=== PATIENT | female | born 1995 | race Caucasian/White ===

== ENCOUNTER 2018-05-20 14:27 | Emergency (ER) | payer BC, SELFPAY ==
[2018-05-20 14:30] VITALS: BP 113/78; PULSE 93; RESP 14; TEMP 36.6; O2SAT 99
--- NOTE | 2018-05-20 14:39 | ED.GENADUL_ITS ---
Discharge Plan Disposition Patient Disposition: HOME Condition: Improving Discharge Details Chief Complaint: EarProblem Clinical Impression: Acute left otitis media Primary Care Provider: None,None ED Provider: Brent Dalal Home Meds and New Rx's Prescriptions: New amoxicillin-pot clavulanate 875-125 mg tablet 1 tab PO BID 10 Days Qty: 20 RF: 0 Continued ibuprofen 800 mg Tablet 800 mg PO TID PRNRF: 0 Discharge Instructions Instructions: Otitis Media (ED) Additional Instructions: We will ask our care management team to assist you in establishing a new primary care physician. May use Benadryl 25-50 mg at bedtime to help decongest her left ear. Take antibiotics as prescribed. I recommend you take a probiotic or live culture yogurt once during the middle of the day when on the antibiotics. May use [id number] Sudafed times 3 days for decongestion. May continue Tylenol and/or ibuprofen if needed for pain Return for any acute concern Stand Alone Forms: Work Release Medical Decision Making 22-year-old female presents from home with left ear pain times 2 days. It is distended and erythematous and she likely has a developing acute left otitis media. Discussed with her home management including a course of antibiotics. She stable for discharge to home. HPI General Mode of arrival: ambulatory . Date/Time Provider Initiated Documentation: 05/20/18 14:29 . Limitations to Documentation: no limitations . Information obtained by: patient . History of Present Illness described as moderate, Quality is described as aching, and is localized to the head, face and left. Patient reports no radiation. Patient started experiencing this day(s) No relieving factors improve symptom(s), No exacerbating factors reported . Patient did receive the following treatments prior to arrival, NSAID Related Data Home Medications Medication Instructions Recorded Confirmed amoxicillin-pot clavulanate 1 tab PO BID 10 Days #20 tab 05/20/18 ibuprofen 800 mg PO TID PRN 05/20/18 05/20/18 Previous Rx's Medication Instructions Recorded amoxicillin-pot clavulanate 1 tab PO BID 10 Days #20 tab 05/20/18 Allergies Allergy/AdvReac Type Severity Reaction Status Date / Time banana Allergy Hives Unverified 05/20/18 14:33 General Stated Complaint: EarProblem RANDEE: 4 Review of Systems Review of Systems No vomiting. No headache. No fall or trauma. 6 systems reviewed and otherwise - [facility] Medical History Asthma BV (bacterial vaginosis) Depression Encounter for management and injection of injectable progestin contraceptive Genitourinary Chlamydia infection Recurrent acute otitis media Surgical History Dilation and curettage (06/19/13) Family History Mother Mental disorder Father Mental disorder Grandmother Mental disorder Social History Smoking/Tobacco Use Status: Current every day Tobacco Type: cigarettes Alcohol Intake: current Alcohol Intake frequency: holidays/special occasions only Drug use: Never Substance use type: does not use Do you feel safe in your relationship?: Yes Exam Narrative Exam Narrative: GEN: awake, alert, oriented 3. Pleasant, well groomed, interactive. HEAD: Normocephalic, atraumatic ENT: Mucous membranes moist, oropharynx unremarkable, External ear exam unremarkable. The left tympanic membrane is distended and erythematous EYES: PERRL, EOMI NECK: Full ROM, no LEYLA, no menigismus CHEST/RESP: Nontender, clear to auscultation bilateral, no wheeze/rhonchi/rales CARDIOVASCULAR: RRR, no murmur, rub prisca. 2+ Rad pulse bilateral Neuro: Grossly normal neurologic exam, conversant, interactive. Psych: Speech fluent, thoughts congruent, affect normal Course Vital Signs Temperature 36.6 C 05/20/18 14:30 Pulse 93 H 05/20/18 14:30 Respiratory Rate 14 05/20/18 14:30 Blood Pressure 113/78 05/20/18 14:30 Pulse Oximetry 99 05/20/18 14:30 Temperature 36.6 C 05/20/18 14:30 Temperature Source Skin 05/20/18 14:30 Pulse 93 H 05/20/18 14:30 Respiratory Rate 14 05/20/18 14:30 Blood Pressure 113/78 05/20/18 14:30 Blood Pressure Position Sitting 05/20/18 14:30 Pulse Oximetry 99 05/20/18 14:30 Oxygen Delivery Method Room Air 05/20/18 14:30 Oxygen Flow Rate 0 05/20/18 14:30 Pain Level 7 05/20/18 14:30
--- NOTE | 2018-05-21 09:40 | PDOC.ERCMPRO ---
Care Management Progress Note 05/21-Dr. Dalal requested assistance with establishing a PCP (Romaine [facility] production superintendent). Referral faxed to [facility] this am.
--- NOTE | 2018-05-21 09:41 | CMPROGNOTE_ITS ---
Care Management Progress Note 05/21-Dr. 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 Referral faxed to [facility] this am.
== END 2018-05-20 14:43 | disposition home or self-care (01) ==
PROVIDERS: Emergency Provider Emergency Medicine
DX: H66.92 Otitis media, unspecified, left ear (principal)
CPT/HCPCS: 99283

== ENCOUNTER 2018-08-13 11:20 | Outpatient (CLI) | payer BC, MEDICAID, SELFPAY | END 2018-08-13 11:40 | PROVIDERS: Visit Provider Obstetrics & Gynecology Gynecology | DX: Z32.01 Encounter for pregnancy test, result positive (principal) | CPT/HCPCS: 36415; 84702 ==

== ENCOUNTER 2018-08-14 16:17 | Outpatient (CLI) | payer BC, MEDICAID, SELFPAY ==
[2018-08-14 17:17] LABS: HCT 34.9 % (36.0-46.0); HGB 12.3 g/dL (12.0-15.5); Mean Corp. HGB Concentration 35.2 g/dL (32.0-36.0); Mean Corpuscular Hemoglobin 31.1 pg (27.0-33.0); Mean Corpuscular Volume 88.1 fL (80-95); Mean Platelet Volume 9.8 fL (8.0-11.0); Platelet Count 237 x1000/uL (130-400); RBC 3.96 m/cumm (4.00-5.20); RBC Distribution Width 12.3 % (11.7-14.6)
== END 2018-08-14 16:37 ==
PROVIDERS: Visit Provider Obstetrics & Gynecology Gynecology
DX: Z01.812 Encounter for preprocedural laboratory examination (principal); O02.1 Missed abortion
CPT/HCPCS: 36415; 85027; 86850; 86900; 86901

== ENCOUNTER 2018-08-15 10:44 | Day surgery (SDC) | payer BC, MEDICAID, SELFPAY ==
[2018-08-15 11:22] VITALS: BP 106/63; PULSE 88; RESP 16; TEMP 37; O2SAT 99
[2018-08-15] MEDS: Doxycycline Hyclate 100 MG CAP PO (11:39)
[2018-08-15] MEDS: Lactated Ringers 1,000 ML 125 ML IV (11:45)
[2018-08-15] MEDS: Bupivacaine 0.25% Pres-Free 30 ML VIAL (12:20)
--- NOTE | 2018-08-15 12:20 | POCSPONT_PTH ---
PATIENT: Eva Alves LOC: [facility] U#:[id number] AGE/SX: 23/F ROOM: RE08/15/[address]: Nena Tiwari : 1995 BED: DIS: 08/15/2018 SPEC #: [id number] RECD: 08/15/18 12:50 STATUS: CHARLES REQ #: [id number] CHRISTI: 08/15/18 12:[address]: Nena Tiwari DEPT: Surgical Specimen RECD BY: Tana Phillips ENTERED: 08/15/18 12:52 SP TYPE: JAEL BAY DR: None Tissues: 1 - ,SPONTANEOUS Procedures: GROSS AND MICRO LEVEL 4 Comments: [id number]
[2018-08-15 12:35] VITALS: BP 94/47; PULSE 81; RESP 15; TEMP 36.6; O2SAT 100
[2018-08-15 12:40] VITALS: BP 97/57; PULSE 82; RESP 14; TEMP 36.6; O2SAT 100
[2018-08-15 12:45] VITALS: BP 100/65; PULSE 82; RESP 14; TEMP 36.6; O2SAT 100
[2018-08-15 13:00] VITALS: BP 97/66; PULSE 95; RESP 17; TEMP 36.6; O2SAT 100
[2018-08-15 13:50] VITALS: BP 106/53; PULSE 72; RESP 16; TEMP 37.1; O2SAT 99
--- NOTE | 2018-08-15 17:05 | W.PM.OP ---
Date of service: 08/15/18 Time of Service: 17:06 Operative Note DATE OF PROCEDURE: 08/15/18 PRE-OP DIAGNOSIS: Missed at 8 weeks estimated gestational age POST-OP DIAGNOSIS: same PROCEDURE: Cervical dilation and suction curettage of uterine contents SURGEON: Nena Tiwari ANESTHESIA: MAC (With laryngeal mask) ESTIMATED BLOOD LOSS: 5 PATHOLOGY: other (Products of conception to pathology) COMPLICATIONS: None Patient was transported to: PACU Patient's condition: stable Indications: 23-year-old female with the finding of a empty gestational sac at approximately 8 weeks estimated gestational age and a quantitative hCG of approximately 75,00 mIU/ml. Patient was counseled regarding options and has decided on a suction D&C. Findings: The uterus sounded to 8 cm. Moderate amount of tissue was obtained. Procedure Description: Patient was placed in the dorsal supine position and laryngeal mask anesthesia was administered. Surgical timeout was performed and the patient was then placed in the dorsal lithotomy position in [facility]. She was prepped and draped in the usual sterile fashion. A bivalve speculum was placed into the vagina and the anterior lip of the cervix was infiltrated with quarter percent Marcaine without epinephrine. A single-tooth tenaculum was used to grasp the anterior lip of the cervix and a paracervical block was performed with quarter percent Marcaine with infiltration at the 4 and 8:00 positions respectively. The uterus was sounded the above-noted finding and the cervix was sequentially dilated to a maximum of 20 Lassiter. A 7 mm curved suction cannula was inserted into the uterine cavity attached to suction in all 4 quadrants of the uterine cavity were sequentially suction curetted. Once the uterine cavity had been emptied the suction cannula was removed and the uterus was gently curetted the banjo curette with minimal tissue returned. The 7 mm suction cannula was reintroduced into the uterine cavity attached to suction and minimal tissue returned. Instruments were removed the patient's vagina tenaculum site was noted to be hemostatic. She was then placed in the dorsal supine position awakened extubated and transported to recovery area in stable condition. All sponge lap and needle counts were correct x2. Patient had SCDs in place during the procedure and received 100 mg of doxycycline orally prior to the procedure.
== END 2018-08-15 13:55 | disposition home or self-care (01) ==
PROVIDERS: Visit Provider Obstetrics & Gynecology Gynecology
PROC: (CPT 59841; principal; 2018-08-15 09:00)
DX: O02.1 Missed abortion (principal)
CPT/HCPCS: 59820; 88305; J1885; J2405

== ENCOUNTER 2018-12-28 14:06 | Emergency (ER) | payer BC, MEDICAID, SELFPAY ==
[2018-12-28 14:25] VITALS: BP 113/79; PULSE 77; RESP 14; TEMP 36.7; O2SAT 100
--- NOTE | 2018-12-28 14:38 | ED.GENADUL_ITS ---
Discharge Plan Disposition Patient Disposition: HOME Condition: Good Discharge Details Chief Complaint: DentalOral Clinical Impression: Abscess, dental Primary Care Provider: None,None ED Provider: Yanely Aldana Home Meds and New Rx's Prescriptions: New penicillin V potassium 500 mg tablet 500 mg PO QID Qty: 40 RF: 0 Discharge Instructions Instructions: Dental Abscess (ED) Additional Instructions: Ice packs to your cheek for swelling. Warm salt water rinses after eating or drinking. Use antibiotic as prescribed. Use antibiotics until completed. Consider probio tic. Motrin or Tylenol for soreness if needed as discussed [id number]. Observe for any increased pain, swelling, difficulty eating or drinking as discussed. For worsening symptoms have reevaluation in the emergency room. Please call your dentist for reevaluation and consideration of cancellation appointments. Medical Decision Making 23-year-old patient presents for complaints of dental pain. Patient tried to get into a dentist when it was unable. Onset of symptoms 2 days ago, pain is worse with range of motion of the jaw and attempted eating. Patient is able to tolerate fluids without difficulty. Feels well hydrated. On exam patient has left-sided facial swelling with dental tenderness at the left upper posterior molars consistent with infection. No obvious fluctuation noted on exam. No clearly drainable abscess at this time. Discussed conservative treatments in addition to antibiotic treatment. Patient agrees with plan of care. Encouraged calling dentist back to try to arrange for sooner appointment or cancellation appointment. Patient reports her understanding. Alarming symptoms were discussed specifically for which she should have immediate return. Patient is not ill-appearing at this time. The patient was stable and requested discharge. Prior to discharge, my usual and customary return precautions were reviewed with the patient - this included follow-up instructions and reasons to return to the Emergency Department if conditions worsens, does not improve as expected, or other new concerns arise. HPI General Date/Time Provider Initiated Documentation: 12/28/18 14:14 . HPI Narrative: Is a 23-year-old patient presents for left-sided jaw pain. Patient reports onset of jaw pain last 2 days. Patient reports increased swelling in the last 24 hours. Pain with range of motion of jaw. Denies fever, chills, nausea, vomiting. Patient is able to drink without difficulty does have some difficulty eating food that is hard or large. Patient denies difficulty swallowing. No voice change. Known dental caries. Tried to call dentist but was unable to get in for several weeks. No other concerns or complaints at this time. No new dental injury or trauma. Related Data Home Medications Medication Instructions Recorded Confirmed penicillin V potassium 500 mg PO QID #40 tab 12/28/18 Previous Rx's Medication Instructions Recorded penicillin V potassium 500 mg PO QID #40 tab 12/28/18 Allergies Allergy/AdvReac Type Severity Reaction Status Date / Time banana Allergy Hives Unverified 12/28/18 14:36 General Stated Complaint: DentalOral RANDEE: 4 Review of Systems All systems reviewed & are unremarkable except as noted in HPI and below Constitutional Constitutional: Denies chills, Denies fever(s) and Denies headache(s) ENT Ears, Nose, Mouth, and Throat: Denies change in voice, Reports dental pain, Denies dizziness, Denies headache(s), Denies neck pain, Denies sore throat, Denies throat swelling and Denies tongue swelling Musculoskeletal Musculoskeletal: Denies neck pain Neurologic Neurologic: Denies dizziness and Denies headache(s) Allergic/Immunologic Allergic/Immunologic: Denies throat swelling and Denies tongue swelling [facility] Medical History Asthma outgrown BV (bacterial vaginosis) 04/07/15. Rx with Metronidazole. 06/30/15 Rx with PO Metronidazole Depression Encounter for management and injection of injectable progestin contraceptive 04/07/15 Depo Provera inj initiated after Nexplanon removed. Genitourinary Chlamydia infection 12/14,02/13 and 05/15 Recurrent acute otitis media outgrown Surgical History Dilation and curettage (06/19/13) for embryonic demise at 12w EGA. Status post dilation and curettage (Acute) 08/15/18; Missed AB at ~8 weeks Social History Smoking/Tobacco Use Status: Current every day Tobacco Type: cigarettes Alcohol Intake: current Alcohol Intake frequency: holidays/special occasions only Drug use: Never Substance use type: does not use Details: 5-6 cigarettes per day Do you feel safe at home: Yes Do you feel safe in your relationship?: Yes Female Reproductive History Menstrual control method: none History History 2 Para 0 Hx # Term Pregnancies Multiple births Hx # Pregnancies Ectopic pregnancies AB induced Hx Number of Living Children 0 AB spontaneous 2 Past Pregnancies Del. Date GA/Weeks # Outcome Route Wgt Sex Labor Lgth Anesthes ia Location Prov Complic 08/15/18 8 Unsuccessful Delivery Date: 08/15/18 On 10/24/18 @ 08:56 Kamla Farias Missed AB at ~ 8 weeks; D&C 08/15/18; Nena Tiwari Exam Narrative Exam Narrative: CONST: Healthy appearing patient, in no acute distress. Well hydrated. Alert and alert. HENMT: Head nomocephalic, normal to inspection. Atraumatic. Hearing grossly normal. Patient with left-sided facial swelling which is noted. Left upper jaw pain with palpation without focal abscess or fluctuation. Dental caries present in the left upper and lower posterior molars. Pharynx normal, no uvula swelling. EYES: General normal appearance. Alignment normal. Eyelids normal. Conjunctiva normal. NECK: Normal visual inspection. FROM. Trachea midline. No Midline tenderness. Cervical lymphadenopathy present SKIN: Normal. Dry. No rashes. NEURO: Alert and awake. Speech clear. PSYCH: Normal affect. Cooperative. Course Vital Signs Vital signs: Vital Signs Temperature 36.7 C 12/28/18 14:25 Pulse 77 12/28/18 14:25 Respiratory Rate 14 12/28/18 14:25 Blood Pressure 113/79 12/28/18 14:25 Pulse Oximetry 100 12/28/18 14:25 Temperature 36.7 C 12/28/18 14:25 Temperature Source Skin 12/28/18 14:25 Pulse 77 12/28/18 14:25 Respiratory Rate 14 12/28/18 14:25 Blood Pressure 113/79 12/28/18 14:25 Blood Pressure Position Sitting 12/28/18 14:25 Pulse Oximetry 100 12/28/18 14:25 Oxygen Delivery Method Room Air 12/28/18 14:25 Oxygen Flow Rate 0 12/28/18 14:25 Pain Level 6 12/28/18 14:25 Comment 12/28/18 14:25
== END 2018-12-28 14:50 | disposition home or self-care (01) ==
PROVIDERS: Emergency Provider Physician Assistant
DX: K04.7 Periapical abscess without sinus (principal)
CPT/HCPCS: 99283

== ENCOUNTER 2019-01-26 18:30 | Emergency (ER) | payer BC, MEDICAID, SELFPAY ==
[2019-01-26 18:34] VITALS: PULSE 110; RESP 18; TEMP 36.6; O2SAT 100
--- NOTE | 2019-01-26 18:48 | DI.RAD_ITS ---
EXAM: XR CHEST 2V PA LATERAL INDICATION: COUGH 2 WEEKS. COMPARISON: No exams were available for comparison TECHNIQUE: 2D digital imaging was performed. FINDINGS: The cardiac and mediastinal contours have a normal appearance. There is a patchy infiltrate in the r ight middle lobe and/or lingula. No effusions are seen. There is no evidence of pneumothorax. No r ib or spine abnormality is seen IMPRESSION: Mild infiltrate, best seen on the lateral view, right middle lobe and/or lingula.
--- NOTE | 2019-01-26 18:55 | W.ED.GENAD ---
Discharge Plan Disposition Patient Disposition: HOME Discharge Details Chief Complaint: Nk/Back Pain Clinical Impression: Back pain, Pneumonia Primary Care Provider: None,None ED Provider: Jemal Reynolds Home Meds and New Rx's Prescriptions: New doxycycline hyclate 100 mg tablet 100 mg PO BID Qty: 13 RF: 0 Discharge Instructions Instructions: Pneumonia (ED), Thoracic Back Strain (ED) Additional Instructions: Please take ibuprofen over the counter. Take 600mg by mouth every 6 hours as needed for pain. Please take acetaminophen (tylenol) - 650mg every 6 hours by mouth as needed for pain. Please take antibiotic as prescribed. Be sure to complete the full course. Please contact your primary care physician to arrange follow-up. Return to the ER for any worsening or new concerning symptoms. 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 Neurologically intact. Plan to treat with Toradol IM, lidocaine patch and Valium. Will reassess. Patient also with cough for the past 2 weeks. Saturating well in no respiratory distress. 20:15 --chest x-ray reviewed and interpreted by radiology: Right middle and possibly right lower lobe infiltrates are concerning for pneumonia in the setting of cough. Patient reassessed and notes significant improvement after medication. Plan to treat with doxycycline for pneumonia. Patient does need a primary care physician. I will add her to care management list to hopefully arrange follow-up. She understands that if cough persists or worsens she should talk to a primary care physician or return to the emergency department. Disposition decision was made weighing the risks and benefits of hospitalization versus outpatient treatment, the risk for further decompensation, and the patient's wishes. The patient was stable and requested discharge. Prior to discharge, my usual and customary return precautions were reviewed with the patient - this included follow-up instructions and reason to return to the emergency department if condition worsens, does not improve as expected, or other new concerns arise. HPI General Mode of arrival: ambulatory. Date/Time Provider Initiated Documentation: 01/26/19 18:40. Limitations to Documentation: no limitations. Information obtained by: patient. HPI Narrative: 23-year-old female presents with chief complaint of back pain. Patient notes she was lifting a patient yesterday at work and felt a burning sensation in her mid back. Today she woke up with worse pain. Pain is described diffuse mid to lower back. Pain is currently severe. Worse with bending or twisting. No associated numbness or weakness. No associated bowel or bladder dysfunction. Patient also notes that she has had a cough over the past 2 weeks. No associated shortness of breath or fever. She does note that when she coughs now her attempts to take a deep breath it hurts her back since the lifting incident yesterday. Related Data Home Medications Medication Instructions Recorded Confirmed doxycycline hyclate 100 mg PO BID #13 tab 01/26/19 Previous Rx's Medication Instructions Recorded doxycycline hyclate 100 mg PO BID #13 tab 01/26/19 Allergies Allergy/AdvReac Type Severity Reaction Status Date / Time banana Allergy Hives Unverified 01/26/19 19:45 General Stated Complaint: Nk/Back Pain RANDEE: 4 Review of Systems All systems reviewed & are unremarkable except as noted in HPI and below Constitutional Constitutional: Denies fever(s) Respiratory Respiratory: Reports as per HPI Musculoskeletal Musculoskeletal: Reports as per HPI [facility] Medical History Asthma outgrown BV (bacterial vaginosis) 04/07/15. Rx with Metronidazole. 06/30/15 Rx with PO Metronidazole Depression Encounter for management and injection of injectable progestin contraceptive 04/07/15 Depo Provera inj initiated after Nexplanon removed. Genitourinary Chlamydia infection 12/14,02/13 and 05/15 Recurrent acute otitis media outgrown Surgical History Dilation and curettage (06/19/13) for embryonic demise at 12w EGA. Status post dilation and curettage (Acute) 08/15/18; Missed AB at ~8 weeks Family History Mother Mental disorder anxiety/depression Father Mental disorder anxiety/depression Grandmother Mental disorder anxiety/depression Social History Smoking/Tobacco Use Status: Current every day Tobacco Type: cigarettes Alcohol Intake: current Alcohol Intake frequency: holidays/special occasions only Drug use: Never Substance use type: does not use Details: 5-6 cigarettes per day Do you feel safe at home: Yes Do you feel safe in your relationship?: Yes Female Reproductive History Menstrual control method: none History History 2 Para 0 Hx # Term Pregnancies Multiple births Hx # Pregnancies Ectopic pregnancies AB induced Hx Number of Living Children 0 AB spontaneous 2 Past Pregnancies Del. Date GA/Weeks # Outcome Route Wgt Sex Labor Lgth Anesthesia Location Prov Complic 08/15/18 8 Unsuccessful Delivery Date: 08/15/18 On 10/24/18 @ 08:56 Kamla Farias Missed AB at ~ 8 weeks; D&C 08/15/18; Nena Twiari Exam Const General: cooperative and no acute distress HENMT Mouth: moist mucous membranes Eyes Conjunctivae: normal conjunctivae Sclera: normal sclerae Neck Neck: trachea midline and supple Resp Auscultation: clear to auscultation bilaterally, no rales, no rhonchi and no wheezes Cardio Rate: regular rate and not tachycardic Rhythm: regular rhythm Back/Spine/Pelvis Cervical Spine: cervical ROM normal and No cervical spinal tenderness Thoracic/Lumbar Spine: paraspinal tenderness (rt thoracic), No thoracic spinal tenderness and No lumbar spinal tenderness Neuro General: alert, awake, oriented x3 and tone normal Extrem General: no edema Course Vital Signs Vital signs: Vital Signs Temperature 36.6 C 01/26/19 18:34 Pulse 110 H 01/26/19 18:34 Respiratory Rate 18 01/26/19 18:34 Pulse Oximetry 100 01/26/19 18:34 Temperature 36.6 C 01/26/19 18:34 Pulse 110 H 01/26/19 18:34 Respiratory Rate 18 01/26/19 18:34 Respiratory Effort Non-Labored 01/26/19 18:38 Pulse Oximetry 100 01/26/19 18:34 Pain Level 8 01/26/19 18:34
[2019-01-26] MEDS: Ketorolac 30 MG/ML VIAL IM (19:02)
[2019-01-26] MEDS: diazePAM 2 MG TAB PO (19:03)
--- NOTE | 2019-01-26 19:22 | DI.VRAD_ITS ---
Addendum created by Barbara Bowman MD on 01/26/2019 7:22:58 PM EST Correction. Right middle and possibly right lower lobe infiltrates are concerning for pneumonia in the setting of cough. Initial report created on 01/26/2019 7:22:10 PM EST PROCEDURE INFORMATION: Exam: XR Chest, 2 Views Exam date and time: 01/26/2019 19:12 Age: 23 years old Clinical history: Patient HX: Cough 2 weeks TECHNIQUE: Imaging protocol: XR of the chest Views: 2 views. COMPARISON: No relevant prior studies available. FINDINGS: Lungs: No consolidation. Pleural space: No pleural effusion. No pneumothorax. Heart/Mediastinum: No cardiomegaly. Bones/joints: No acute fracture. IMPRESSION: No acute cardiopulmonary pathology. Dictated and Authenticated by: Barbara Bowman MD. Ordering:TUNDE Joaquin MD
[2019-01-26] MEDS: Lidocaine 5% Patch 1 PATCH TP (19:43)
[2019-01-26] MEDS: Doxycycline Hyclate 100 MG CAP PO (20:17)
[2019-01-26 20:27] VITALS: BP 95/63; PULSE 113; RESP 18; TEMP 36.7; O2SAT 99
--- NOTE | 2019-01-28 14:46 | PDOC.ERCMPRO ---
Care Management Progress Note Referral faxed to [facility] to establish PCP, 01/28/19@2624.
== END 2019-01-26 20:55 | disposition home or self-care (01) ==
PROVIDERS: Emergency Provider Student in an Organized Health Care Education/Training Program
DX: M54.6 Pain in thoracic spine (principal); J18.9 Pneumonia, unspecified organism; F17.210 Nicotine dependence, cigarettes, uncomplicated; X50.9XXA Other and unspecified overexertion or strenuous movements or postures, initial encounter
CPT/HCPCS: 96372; 99284; 71046; J1885

== ENCOUNTER 2019-03-04 10:12 | Outpatient (CLI) | payer BC, MEDICAID, SELFPAY ==
--- NOTE | 2019-03-04 11:22 | DI.RAD_ITS ---
EXAM: XR CHEST 2V PA LATERAL CLINICAL HISTORY: f/u RML pneumonia J18.9. TECHNIQUE: 2D digital imaging was performed. COMPARISON: XR CHEST 2V PA LATERAL from 01/26/2019 FINDINGS: LUNGS: Clear. No pleural abnormality seen. HEART: Normal. MEDIASTINUM: Normal. OTHER FINDINGS:Normal. IMPRESSION: No acute pulmonary findings.
== END 2019-03-04 10:32 ==
PROVIDERS: PCP Nurse Practitioner; Visit Provider Nurse Practitioner
DX: J18.9 Pneumonia, unspecified organism (principal)
CPT/HCPCS: 71046

== ENCOUNTER 2019-06-03 07:28 | Day surgery (SDC) | payer BC, MEDICAID, SELFPAY ==
[2019-06-03 07:39] VITALS: BP 100/64; PULSE 82; RESP 16; TEMP 36.8; O2SAT 100
[2019-06-03] MEDS: Lactated Ringers 1,000 ML 125 ML IV (08:00)
[2019-06-03 08:08] LABS: HGB 12.7 g/dL (12.0-15.5); Mean Corp. HGB Concentration 35.3 g/dL (32.0-36.0); Mean Corpuscular Hemoglobin 31.1 pg (27.0-33.0); Mean Platelet Volume 9.5 fL (8.0-11.0); Platelet Count 239 x1000/uL (130-400); RBC 4.09 m/cumm (4.00-5.20); RBC Distribution Width 12.8 % (11.7-14.6); White Blood Cell Count 3.88 k/cumm (4.4-10.8)
[2019-06-03] MEDS: Methylergonovine 0.2 MG/ML VIAL (09:15)
--- NOTE | 2019-06-03 09:18 | POCSPONT_PTH ---
PATIENT: Eva Alves LOC: [facility] U#:[id number] AGE/SX: 23/F ROOM: RE06/03/[address]: Earnest Ochoa MD : 1995 BED: DIS: 06/03/2019 SPEC #: [id number] RECD: 06/03/19 12:57 STATUS: CHARLES REQ #: [id number] CHRISTI: 06/03/19 09:[address]: Earnest Ochoa DEPT: Surgical Specimen RECD BY: Tana Phillips ENTERED: 06/03/19 12:59 SP TYPE: JAEL BAY DR: Nidia Howard APRN Tissues: 1 - ,SPONTANEOUS CHROMOSOME ANALYSIS PROFILE Procedures: GROSS AND MICRO LEVEL 4 CHROMOSOME ANALYSIS 15-20 CELLS CHROMOSOME ANALYSIS TISSUE CULTURE Comments: [id number]
--- NOTE | 2019-06-03 09:56 | W.PM.DSUDISC ---
Discharge Plan Disposition Patient Disposition: HOME Condition: Good Discharge Details Reason For Visit: Missed Attending Provider: Earnest Ochoa Primary Care Provider: Nidia Howard Home Meds and New Rx's Prescriptions: New hydrocodone-acetaminophen 5-325 mg Tablet 1 tab PO Q6H PRN Qty: 5 RF: 0 Continued gummy vitamins See Rx Instructions .ROUTE .COMPLEX RF: 0 Discharge Instructions Activity:: Activity as Tolerated Diet:: As Tolerated Discharge Orders Discharge Orders: Discharge Order (Routine); Ordered 06/03/19 Ordered By: Earnest Ochoa DS: Diagnosis Discharge Diagnosis (1) Spontaneous : Status: Acute
--- NOTE | 2019-06-03 10:01 | ROE_ITS ---
Date of service: 06/03/19 Time of Service: 10:01 Operative Note Operative Note DATE OF PROCEDURE: 06/03/19 PRE-OP DIAGNOSIS: 1. 8-week missed . 2. Recurrent loss POST-OP DIAGNOSIS: same PROCEDURE: Suction D&C SURGEON: Earnest Ochoa ANESTHESIA: MAC ESTIMATED BLOOD LOSS: 50 PATHOLOGY: other (Products of conception for genetic analysis) COMPLICATIONS: None Patient was transported to: PACU Patient's condition: stable Findings: Products of conception Procedure Description: The patient was taken to the operating room and after adequate sedation was achieved the patient was placed in lithotomy position. The patient was prepped and draped in the usual sterile manner. A weighted speculum was placed in the vagina with good visualization of the cervix. The cervix was grasped with an Allis forcep. The cervix was gently dilated with Lassiter dilators. An 8 Belizean curved suction curette was advanced through the cervix without difficulty. The suction apparatus was activated and the curette was rotated. Copious products of conception were retrieved. A sharp curettage was performed and additional products of conception were retrieved. Suction and sharp curettage were alternated until no additional products were returned and a gritty texture was noted throughout the endometrial cavity. The uterus was somewhat boggy and 0.2 mg of IM Methergine was administered. The uterus was well contracted at the conclusion of the procedure. Excellent hemostasis was noted. All instrumentation was removed. The patient was transferred to PACU in stable condition.
[2019-06-03 10:09] VITALS: BP 93/57; PULSE 77; RESP 16; TEMP 36.2; O2SAT 99
== END 2019-06-03 10:50 | disposition home or self-care (01) ==
PROVIDERS: PCP Nurse Practitioner; Visit Provider Obstetrics & Gynecology
PROC: (CPT 59841; principal; 2019-06-03 09:00)
DX: O02.1 Missed abortion (principal); N96 Recurrent pregnancy loss
CPT/HCPCS: 59820; 85027; 86850; 86900; 86901; 88305; 88233; 88262; J1885; J2001; J2210; J2405; J3010

== ENCOUNTER 2019-07-27 13:33 | Outpatient (REF) | payer BC, MEDICAID, SELFPAY ==
[2019-07-28 01:58] LABS: COVID-19 RT-PCR UVMMC Result Negative (Negative)
== END 2019-07-27 13:53 ==
LOC: LBN 13:33
PROVIDERS: PCP Nurse Practitioner; Visit Provider Nurse Practitioner Adult Health
DX: Z11.59 Encounter for screening for other viral diseases (principal)
CPT/HCPCS: U0003

== ENCOUNTER 2019-08-19 09:02 | Outpatient (REF) | payer BC, MEDICAID, SELFPAY ==
[2019-08-21 07:39] LABS: COVID-19 RT-PCR Result NEGATIVE (Negative)
== END 2019-08-19 09:22 ==
LOC: LBN 09:02
PROVIDERS: PCP Nurse Practitioner; Referring Provider Nurse Practitioner Adult Health; Visit Provider Nurse Practitioner Adult Health
DX: Z11.59 Encounter for screening for other viral diseases (principal)
CPT/HCPCS: U0003

== ENCOUNTER 2019-09-25 11:07 | Outpatient (REF) | payer BC, MEDICAID, SELFPAY ==
[2019-09-29 21:49] LABS: SARS-CoV-2 RNA Undetected (Undetected); SARS-CoV-2 Specimen Source Nasopharynx
== END 2019-09-25 11:27 ==
LOC: LBN 11:07
PROVIDERS: PCP Nurse Practitioner; Visit Provider Nurse Practitioner Adult Health
DX: Z11.59 Encounter for screening for other viral diseases (principal)
CPT/HCPCS: U0003

== ENCOUNTER 2019-10-05 10:46 | Outpatient (REF) | payer BC, MEDICAID, SELFPAY ==
[2019-10-08 09:34] LABS: SARS-CoV-2 RNA Undetected (Undetected); SARS-CoV-2 Specimen Source Nasopharynx
== END 2019-10-05 11:06 ==
LOC: LBN 10:46
PROVIDERS: PCP Nurse Practitioner; Visit Provider Family Medicine
DX: Z11.59 Encounter for screening for other viral diseases (principal)
CPT/HCPCS: U0003

== ENCOUNTER 2019-12-25 18:00 | Outpatient (REF) | payer MEDICAID, SELFPAY ==
[2019-12-26 16:57] LABS: COVID-19 RT-PCR Result Not Detected ((See Note))
== END 2019-12-25 18:20 ==
LOC: LBN 18:00
PROVIDERS: PCP Nurse Practitioner; Referring Provider Nurse Practitioner Adult Health; Visit Provider Nurse Practitioner Adult Health
DX: R50.9 Fever, unspecified (principal)
CPT/HCPCS: U0003

== ENCOUNTER 2020-06-12 02:27 | Outpatient (CLI) | payer MEDICAID, SELFPAY ==
[2020-06-12 12:27] LABS: Kit/Specimen SENT
[2020-06-12 12:39] LABS: Abs Immature Grans 0.02 10^3/uL (0.0-0.06); Absolute Basophil Count 0.02 10^3/uL (0.0-0.2); Absolute Eosinophil Count 0.08 10^3/uL (0.0-0.7); Absolute Lymphocyte Count 1.17 10^3/uL (1.2-3.4); Absolute Monocyte Count 0.43 10^3/uL (0.1-0.8); Absolute Neutrophil Count 3.17 10^3/uL (1.2-6.7); Basophils % 0.4; Eosinophils % 1.6; HGB 11.9 g/dL (11.2-15.7); Immature Grans % 0.4; Lymphocytes % 23.9; MCH 31.3 pg (27.0-33.0); MCV 89.5 fL (80-95); MPV 10.3 fL (8.0-11.0); Monocytes % 8.8; Neutrophils % 64.9; Nucleated RBC 0 %; Platelet Count 210 10^3/uL (130-400); RDW 12.3 % (11.7-14.6); WBC 4.89 10^3/uL (4.4-10.8)
[2020-06-12 13:36] LABS: TSH (W/Ref FT4) 0.39 uIU/mL (0.36-3.74)
[2020-06-14 11:30] LABS: Syphilis Total Ab w/Reflex Nonreactive (Nonreactive)
[2020-06-15 09:04] LABS: Hepatitis B Surface Ag Negative (Negative)
[2020-06-15 09:28] LABS: Hepatitis C Ab w Rflx HCV PCR Negative (Negative)
[2020-06-15 09:49] LABS: HIV-1/2 Ag & Ab Screen Negative (Negative)
[2020-06-15 10:09] LABS: Varicella IgG Antibody Positive (See Note)
[2020-06-15 10:13] LABS: Rubella IgG Ab (UVM) Positive (See Note)
[2020-06-18 16:58] LABS: Result Summary NEGATIVE; Specimen WB Whole Blood
== END 2020-06-12 02:28 | disposition home or self-care (01) ==
LOC: LBO 02:27
PROVIDERS: Advanced Practice Midwife; PCP Nurse Practitioner; Visit Provider Advanced Practice Midwife
DX: Z34.91 Encounter for supervision of normal pregnancy, unspecified, first trimester (principal); Z11.4 Encounter for screening for human immunodeficiency virus [HIV]; Z11.59 Encounter for screening for other viral diseases; Z01.84 Encounter for antibody response examination
CPT/HCPCS: 86787; 86803; 86850; 86900; 86901; 87340; 87389; 81220; 84443; 85025; 86762; 86780

== ENCOUNTER 2020-06-12 12:21 | Outpatient (REF) | payer MEDICAID, SELFPAY ==
--- NOTE | 2020-06-12 11:30 | PAPFT_PTH ---
PATIENT: Eva Alves LOC: [place] U#:[id number] AGE/SX: 24/F ROOM: RE06/12/[address]: Betsy Cisse CNM : 1995 BED: DIS: 06/12/2020 SPEC #: [id number] RECD: 06/12/20 12:56 STATUS: CHARLES ENAMORADO #: [id number] CHRISTI: 06/12/20 11:[address]: Betsy Cisse DEPT: FOR[facility]LY [facility], [facility] Cytology RECD BY: Tana Phillips ENTERED: 06/12/20 12:57 SP TYPE: PAPFT PHU DR: Nidia Howard APRN Tissues: 1 - CX/ENDOCX FOR PAP SMEARS Procedures: PAP THIN PREP/UVM Screening Comments: [id number]
[2020-06-12 14:13] LABS: *AMPHETAMINES SCREEN URINE Negative (Negative); *BARBITURATES SCREEN URINE Negative (Negative); *BENZODIAZEPINES SCREEN URINE Negative (Negative); Cannabinoids THC Positive (Negative); Cocaine Screen,Urine Negative (Negative); METHADONE URINE SCREEN Negative (Negative); OPIATES URINE SCREEN Negative (Negative)
[2020-06-12 14:20] LABS: Tricyclic Antidepressants Negative (Negative)
[2020-06-15 17:03] LABS: Chlamydia Result Negative (Negative); GC Result Negative (Negative)
[2020-06-17 12:28] LABS: Buprenorphine Negative ng/mL (Cutoff: 5.0); Norbuprenorphine Negative ng/mL (Cutoff: 2.5)
== END 2020-06-12 12:22 | disposition home or self-care (01) ==
LOC: LBN 12:21
PROVIDERS: PCP Nurse Practitioner; Visit Provider Advanced Practice Midwife
DX: Z34.91 Encounter for supervision of normal pregnancy, unspecified, first trimester (principal); Z12.4 Encounter for screening for malignant neoplasm of cervix; Z11.3 Encounter for screening for infections with a predominantly sexual mode of transmission
CPT/HCPCS: 80307; 87491; 87591; 88142; 87086

== ENCOUNTER 2020-06-23 19:45 | Outpatient (REF) | payer MEDICAID, SELFPAY ==
[2020-06-25 11:52] LABS: COVID-19 RT-PCR UVMMC Result Negative (Negative)
== END 2020-06-23 19:46 | disposition home or self-care (01) ==
LOC: LBN 19:45
PROVIDERS: PCP Nurse Practitioner; Visit Provider Nurse Practitioner Adult Health
DX: Z20.822 Contact with and (suspected) exposure to COVID-19 (principal)
CPT/HCPCS: U0003

== ENCOUNTER 2020-07-24 04:07 | Outpatient (CLI) | payer MEDICAID, SELFPAY ==
--- NOTE | 2020-07-24 07:00 | DI.US_ITS ---
Exam(s) US OB 2-3 TRIMESTER EXAM: US OB 2-3 TRIMESTER CLINICAL HISTORY: 18 wk anatomy survey,Z34.90 TECHNIQUE: Ultrasound performed using standard protocol. COMPARISON: US PELVIS TRANSVAG from 03/10/2017 FINDINGS: Ob ultrasound was performed utilizing 2nd trimester protocol. biometry is consistent with gest ational age 20 weeks 0 days and EDC of December 11. Placenta is anterior with no evidence of placent a previa. There is visually a normal quantity of amniotic fluid. anomaly screen is within normal limits as per the attached checklist. heart rate is 141 BPM. IMPRESSION: DATA REPOSITORY:
== END 2020-07-24 04:27 ==
PROVIDERS: PCP Nurse Practitioner; Visit Provider Advanced Practice Midwife
DX: Z36.2 Encounter for other antenatal screening follow-up (principal); Z3A.20 20 weeks gestation of pregnancy
CPT/HCPCS: 76805

== ENCOUNTER 2020-09-09 15:56 | Emergency (ER) | payer MEDICAID, SELFPAY ==
--- NOTE | 2020-09-09 15:58 | DI.US_ITS ---
Exam(s) US OB SURJIT WEIGHT EXAM: US OB SURJIT WEIGHT CLINICAL HISTORY: bleeding, cramping, r/o miscarriage. TECHNIQUE: Transabdominal obstetrical ultrasound performed. COMPARISON: US US OB 2-3 TRIMESTER from 07/24/2020 US US OB 2-3 TRIMESTER from 07/24/2020 FINDINGS:: Number of fetuses: One. position: Vertex. Placental location: Anterior, grade 2. The placenta appears intact. No evidence of previa or abrupti on. BIOMETRIC DATA: BPD: 67mm = 26+ 6 weeks HC: 247mm = 26+ 6 AC: 217mm = 26+ 1 FL: 48 mm = 26+ 2 EFW: 919 Gms = 65 % Composite Age: 26+ 4 weeks EDC: 12 December 2020 Heart Rate: 150BPM Amniotic fluid index: 13 cm. Amount of fluid is within normal limits. IMPRESSION: size and weight are within the expected range. The placenta is intact. DATA REPOSITORY:
[2020-09-09 15:59] VITALS: BP 104/67; PULSE 109; RESP 16; TEMP 36.5; O2SAT 100
--- NOTE | 2020-09-09 16:15 | ED.GENADUL_ITS ---
Discharge Plan Disposition Patient Disposition: [facility] INPATIENT Condition: Stable Discharge Details Clinical Impression: , Abdominal cramping Primary Care Provider: Nidia Howard ED Provider: Keya Zelaya Home Meds and New Rx's Prescriptions: No Action gummy vitamins See Rx Instructions .ROUTE .COMPLEX RF: 0 aspirin 81 mg tablet,delayed release (DR/EC) 81 mg PO DAILY Qty: 90 RF: 0 pantoprazole [Protonix] 40 mg tablet,delayed release (DR/EC) 40 mg PO DAILY Qty: 30 RF: 5 Colace Clear 50 mg capsule 50 mg PO BID Qty: 60 RF: 3 acetaminophen 500 mg Capsule 500 mg PO PRN PRNRF: 0 Discharge Instructions Instructions: Labor (DC) Discharge Data Discharge Date/Time-TO BE ENTERED AT DEPARTURE: 09/09/20 18:25 Discharge Physician: Nena Tiwari Medical Decision Making Patient is a pleasant 25-year-old female presenting today, accompanied by her sister, with chief complaint of nausea, abdominal cramping and diarrhea. She reports her symptoms began yesterday, approximately 2-1/2 hours after eating. States that initially she was having nausea and vomiting. Her, the vomiting is since subsided but she has had 5 watery bowel movements today. She denies any fevers or chills. Patient is a G4, P0. 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 She denies any vaginal bleeding. Denies any vaginal discharge. No previous abdominal surgeries. Denies any pain radiating to her back. Denies any melena or hematochezia. Has had diminished p.o. today. On exam, patient appears nontoxic. She does appear anxious. She slightly tachycardic with a heart rate of 109. She has epigastric discomfort with palpation. No pain over the right or left upper quadrants. Patient has been having good movements. heart rate 155 at bedside. Patient is describing this as cramping, will obtain ultrasound. We will hydrate the patient as she has had poor p.o. intake as well as GI losses. Also obtain baseline labs. GESTATION: Gestation: Single living intrauterine gestation. heart rate: heart rate recorded to be 150 bpm. presentation: Cephalic presentation. Placenta: Placenta is anterior in location. Amniotic fluid index: SURJIT is 13.0 cm. BIOMETRY: Gestational age (AUA): Average gestational age is 26 weeks 4 days. Estimated due date (AUA): Estimated date of delivery of 12/12/2020. Estimated weight: Estimated weight is 919 g. Estimated weight percentile: Estimated weight percentile is 65th. Biparietal diameter: BPD 6.7 cm, 26 weeks 6 days Head circumference: HC 24.6 cm, 26 weeks 6 days Abdominal circumference: AC 21.9 cm, 26 weeks 1 day Femur length: FL 4.8 cm, 26 weeks 2 days. MATERNAL: Uterus: Unremarkable. Cervix: Unremarkable. IMPRESSION: 1. Single living intrauterine gestation. 2. Average gestational age is 26 weeks 4 days. 3. heart rate recorded to be 150 bpm. Labs are still pending. Patient appears much calmer after reassuring ultrasound. I did speak with Dr. Tiwari. While her discomfort seems to be fairly consistent, I did consider premature labor. Dr. Tiwari will see the pa tient in-house and have patient monitored. She will follow up on pending labs and determine final disposition of the patient. I discussed recommendation with the patient and her sister regarding evaluation with obstetrics for monitoring and she is in agreement with this plan. She agrees to this intervention. Patient brought upstairs in stable condition, still receiving IV fluids. HPI General Mode of arrival: ambulatory . Date/Time Provider Initiated Documentation: 09/09/20 15:58 . Limitations to Documentation: no limitations . Information obtained by: patient and RN notes reviewed . History of Present Illness 25 year old F presents to the emergency department with the chief complaint of abdominal cramping, N/V/D, 25 weeks gestation, described as moderate, Quality is described as other (nausea and cramping), and is localized to the abdomen. Patient reports no radiation. Patient started experiencing this day(s) (1) and it has been constant. No relieving factors improve symptom(s), No exacerbating factors reported . Patient notes loss of appetite and nausea/vomiting; denies chest pain, cough, fever/chills, rash, shortness of breath and weakness. Patient did receive the following treatments prior to arrival, none Related Data Home Medications Medication Instructions Recorded Confirmed gummy vitamins See Rx Instructions .ROUTE .COMPLEX 05/08/19 09/09/20 aspirin 81 mg tablet,delayed 81 mg PO DAILY #90 tab 06/12/20 07/31/20 release acetaminophen 500 mg PO PRN PRN 09/09/20 09/09/20 docusate sodium 50 mg capsule 50 mg PO BID #60 cap 09/14/20 09/14/20 pantoprazole 40 mg tablet,delayed 40 mg PO DAILY #30 tab 09/14/20 09/14/20 release Previous Rx's Medication Instructions Recorded aspirin 81 mg tablet,delayed 81 mg PO DAILY #90 tab 06/12/20 release docusate sodium 50 mg capsule 50 mg PO BID #60 cap 09/14/20 pantoprazole 40 mg tablet,delayed 40 mg PO DAILY #30 tab 09/14/20 release Allergies Allergy/AdvReac Type Severity Reaction Status Date / Time banana Allergy Hives Unverified 09/14/20 14:00 General Stated 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: 2 Review of Systems Constitutional Constitutional: Reports as per HPI, Denies chills, Denies fatigue, Denies fever(s) and Denies headache(s) ENT Ears, Nose, Mouth, and Throat: Denies headache(s) Cardiovascular Cardiovascular: Reports as per HPI, Denies chest pain and Denies dyspnea Respiratory Respiratory: Reports as per HPI, Denies cough and Denies dyspnea Gastrointestinal Gastrointestinal: Reports as per HPI Musculoskeletal Musculoskeletal: Reports as per HPI and Denies back pain Integumentary/Breasts Skin/Breast: Reports as per HPI and Denies rash Neurologic Neurologic: Reports as per HPI and Denies headache(s) Endocrine Endocrine: Denies fatigue [facility] Medical History (Updated 09/15/20 @ 15:06 by BRIANA Salmon) Asthma outgrown BV (bacterial vaginosis) 04/07/15. Rx with Metronidazole. 06/30/15 Rx with PO Metronidazole Depression Depression (11/24/11) chronic depressed mood Encounter for management and injection of injectable progestin contraceptive 04/07/15 Depo Provera inj initiated after Nexplanon removed. Genitourinary Chlamydia infection 12/14,02/13 and 05/15 Heart murmur (10/27/11) innocent Idiopathic scoliosis (10/27/11) Missed menses Positive test Previous recurrent miscarriages affecting , antepartum Recurrent acute otitis media outgrown Tobacco abuse Surgical History (Updated 06/12/20 @ 11:57 by Eva Cisse) Dilation and curettage (06/19/13) for embryonic demise at 12w EGA. Status post dilation and curettage 08/15/18; Missed AB at ~8 weeks Family History Mother Anxiety Depression Hypertension Father Anxiety Depression Hypertension Grandmother Mental disorder anxiety/depression Sister Asthma COPD (chronic obstructive pulmonary disease) Social History (Updated 02/13/19 @ 13:45 by Va Martinez) Smoking/Tobacco Use Status: Current every day Tobacco Type: cigarettes Smoking risk assessment performed?: Yes Alcohol Intake: former Drug use: Never Substance use type: does not use Details: 5-6 cigarettes per day Adopted: No Caregiver/Support person: No Foster care: No Do you need help understanding health information?: Often 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 Date GA/Weeks # Outcome Route Wgt Sex Labor Lgth Anesthes ia Location Prov Complic 04/12/13 Unsuccessful 08/15/18 8 Unsuccessful 05/29/19 10 No Unsuccessful Delivery Date: 04/12/13 No notes to display Delivery Date: 08/15/18 Missed AB at ~ 8 weeks; D&C 08/15/18; [facility]araj Delivery Date: 05/29/19 Missed AB at 10.2 weeks; Kamla Farias Exam Const General: cooperative, healthy appearing, comfortable, no acute distress and well developed Nutritional Appearance: average body habitus and well nourished Orientation: alert and awake HENMT Head: normal to inspection Mouth: moist mucous membranes Resp Effort & Inspection: normal respiratory effort, able to speak in complete sentences and no respiratory distress Auscultation: clear to auscultation bilaterally, no rales, no rhonchi and no wheezes Cardio Rate: regular rate Rhythm: regular rhythm Heart Sounds: S1 normal and S2 normal GI Inspection: normal to inspection (normal for gestational age) Palpation: soft, no guarding, no pulsatile masses, not rigid and tender in the epigastrum; Bush's sign negative and with no rebound tenderness Back/Spine/Pelvis Back: no CVA tenderness Skin General skin exam: no rashes or lesions noted Trauma: no lacerations or abrasions Neuro General: patient alert and patient awake Cognition: normal cognition Speech: speech normal Gait: normal gait Psych Appearance: grossly normal and well kempt Mental Status: mental status grossly normal Speech and Movement: speech and movement normal Course Vital Signs Vital signs: Vital Signs Temperature 36.5 C 09/09/20 15:59 Pulse 109 H 09/09/20 15:59 Respiratory Rate 16 09/09/20 15:59 Blood Pressure 104/67 09/09/20 15:59 Pulse Oximetry 100 09/09/20 15:59 Temperature 36.5 C 09/09/20 15:59 Temperature Source Skin 09/09/20 15:59 Pulse 109 H 09/09/20 15:59 Respiratory Rate 16 09/09/20 15:59 Blood Pressure 104/67 09/09/20 15:59 Blood Pressure Position Sitting 09/09/20 15:59 Pulse Oximetry 100 09/09/20 15:59 Oxygen Delivery Method Room Air 09/09/20 15:59 Oxygen Flow Rate 0 09/09/20 15:59
--- NOTE | 2020-09-09 16:38 | DI.VRAD_ITS ---
PROCEDURE INFORMATION: Exam: US After First Trimester, Transabdominal Exam date and time: 09/09/2020 4:11 PM Age: 25 years old Clinical indication: Lmp or gestational age (in weeks): 25+5; Antepartum complications; Other: Cramping, R/O miscarriage; TECHNIQUE: Imaging protocol: Real-time transabdominal obstetrical ultrasound of the maternal pelvis and a second or third trimester with image documentation. COMPARISON: US OB 2-3 TRIMESTER 07/24/2020 1:49 PM FINDINGS: GESTATION: Gestation: Single living intrauterine gestation. heart rate: heart rate recorded to be 150 bpm. presentation: Cephalic presentation. Placenta: Placenta is anterior in location. Amniotic fluid index: SURJIT is 13.0 cm. BIOMETRY: Gestational age (AUA): Average gestational age is 26 weeks 4 days. Estimated due date (AUA): Estimated date of delivery of 12/12/2020. Estimated weight: Estimated weight is 919 g. Estimated weight percentile: Estimated weight percentile is 65th. Biparietal diameter: BPD 6.7 cm, 26 weeks 6 days Head circumference: HC 24.6 cm, 26 weeks 6 days Abdominal circumference: AC 21.9 cm, 26 weeks 1 day Femur length: FL 4.8 cm, 26 weeks 2 days. MATERNAL: Uterus: Unremarkable. Cervix: Unremarkable. IMPRESSION: 1. Single living intrauterine gestation. 2. Average gestational age is 26 weeks 4 days. 3. heart rate recorded to be 150 bpm. Dictated and Authenticated by: Ghanshyam Bourgeois MD. Ordering:LUKE Mantilla MD
[2020-09-09] MEDS: Normal Saline 1,000 ML 1000 ML IV (16:41)
[2020-09-09] MEDS: Ondansetron 4 MG/2 ML VIAL IVP (16:41)
[2020-09-09 16:44] LABS: Bilirubin Negative (Negative); Blood Negative (Negative); Clarity Clear (Clear); Glucose Negative (Negative); Ketones Negative (Negative); Leukocyte Esterase Moderate (Negative); Nitrite Negative (Negative)
[2020-09-09 16:49] LABS: Abs Immature Grans 0.15 10^3/uL (0.0-0.06); Absolute Basophil Count 0.04 10^3/uL (0.0-0.2); Absolute Eosinophil Count 0.09 10^3/uL (0.0-0.7); Absolute Lymphocyte Count 1.54 10^3/uL (1.2-3.4); Absolute Monocyte Count 0.49 10^3/uL (0.1-0.8); Absolute Neutrophil Count 6.62 10^3/uL (1.2-6.7); Basophils % 0.4; HCT 35.4 % (36.0-46.0); Immature Grans % 1.7; Lymphocytes % 17.2; MCH 31.3 pg (27.0-33.0); MCHC 33.9 % (32.0-36.0); MCV 92.4 fL (80-95); Monocytes % 5.5; Neutrophils % 74.2; Nucleated RBC 0 %; Platelet Count 198 10^3/uL (130-400); RBC 3.83 10^6/uL (3.93-5.22); RDW 12.9 % (11.7-14.6); RDW-SD 43.7 fL; WBC 8.93 10^3/uL (4.4-10.8)
[2020-09-09 17:00] LABS: ALT 23 U/L (14-59); AST 13 U/L (15-37); Albumin 3.2 g/dL (3.4-5.0); Alkaline Phosphatase 118 U/L (46-116); Anion Gap 13.1 mmol/L (3-11); BUN 7 mg/dL (7-18); Bilirubin, Total 0.3 mg/dL (0.2-1.0); CO2 21.9 mmol/L (21.0-32.0); CREATININE 0.6 mg/dL (0.55-1.02); Calcium 8.6 mg/dL (8.5-10.1); Chloride 105 mmol/L (98-107); Glucose 82 mg/dL (74-106); Lipase 94 U/L (73-393); Magnesium 1.8 mg/dL (1.8-2.4); Potassium 3.8 mmol/L (3.5-5.1); Sodium 140 mmol/L (136-145); Total Protein 7.2 g/dL (6.4-8.2)
[2020-09-09 17:04] LABS: Bacteria Negative HPF (Negative); C & S Indicated? No/Sq. Contamination; Casts Negative LPF (Negative); Crystals Negative HPF (Negative); Epithelial Cells Many HPF (Negative); Mucus Negative (Negative); Other Cells Few Renal (Negative); RBC Negative HPF (0-2); WBC 0-2 HPF (0-5)
[2020-09-09 17:43] VITALS: BP 95/56; PULSE 94
[2020-09-09] MEDS: Famotidine 20 MG TAB 40 MG PO (18:19)
== END 2020-09-09 18:25 | disposition short-term general hospital (02) ==
LOC: ER 16:06 → OBS 17:17
PROVIDERS: Emergency Provider Physician Assistant; PCP Nurse Practitioner
DX: O99.891 Other specified diseases and conditions complicating pregnancy (principal); Z3A.25 25 weeks gestation of pregnancy; R10.9 Unspecified abdominal pain
CPT/HCPCS: 36415; 76816; 80053; 83690; 96361; 96374; 99284; 59025; 81003; 81015; 83735; 85025; J2405

== ENCOUNTER 2020-11-14 20:42 | Emergency (ER) | payer MEDICAID, SELFPAY ==
[2020-11-14 20:48] VITALS: BP 129/86; PULSE 90; RESP 18; TEMP 36.2; O2SAT 100
[2020-11-14] MEDS: Bupivacaine 0.5% Pres-Free 30 ML VIAL (20:59)
--- NOTE | 2020-11-14 20:59 | W.ED.GENAD ---
Discharge Plan Disposition Patient Disposition: HOME Condition: Good Discharge Details Clinical Impression: Pain, dental, Abscess, dental Primary Care Provider: Nidia Howard ED Provider: Lorne Coleman Home Meds and New Rx's Prescriptions: New penicillin V potassium 500 mg tablet 500 mg PO QID 10 Days Qty: 40 RF: 0 Continued gummy vitamins See Rx Instructions .ROUTE .COMPLEX RF: 0 aspirin 81 mg tablet,delayed release (DR/EC) 81 mg PO DAILY Qty: 90 RF: 0 Colace Clear 50 mg capsule 50 mg PO BID Qty: 60 RF: 3 acetaminophen 500 mg Capsule 500 mg PO PRN PRNRF: 0 Discharge Instructions Instructions: Toothache (ED) Additional Instructions: At this time you do have a mild infection in your tooth. Please take the antibiotic as directed. [facility] You have been given a small bottle of the next few doses while your prescription is being filled. Please continue to take Tylenol as needed for pain. Please follow-up closely with your dentist. If you notice any worsening of your symptoms, or any new symptoms such as vomiting, diarrhea, fever, chills, shortness of breath, chest pain, numbness, weakness, or fainting , please return immediately to the emergency department for reevaluation. Please follow up with your primary care provider as soon as possible for reassessment and reevaluation. As always, it was a pleasure participating in your medical care today. Referrals: Nidia Howard, SHERIFF SERGEANT [Primary Care Provider] - Medical Decision Making 25-year-old female who is 35 weeks presents today for evaluation of right lower posterior dental pain. Patient has had pain for the last few days. She has been taking Tylenol without significant improvement. She did call her dentist who recommended she come in for antibiotics. Patient denies any other complaints at this time. No other modifying factors. Pain made worse with palpation. Improved minimally by Tylenol. Exam demonstrates notable decayed tooth in the posterior inferior right molars, with associated small periapical abscess. Risk and benefits were discussed, patient elected for dental block. Dental block was performed, and patient had near complete resolution of her pain. I&D of the periapical abscess was performed, and 2 to 3 mL of purulent fluid removed. Patient tolerated this well. Exam demonstrates no signs of airway compromise or other concerning complication whatsoever. Patient stable for discharge. We will give a dose of penicillin here, and prescription from use. Discussed red flags which to return as well as discussed the need for continued Tylenol at home. I have extensively reviewed the treatment plan and discharge instructions with the patient. I have addressed all patient concerns at this time. The patient was made aware of what symptoms to monitor for that would warrant a return to the emergency department. Discussed the plan with the patient, they demonstrate verbal understanding and agreement with our assessment and plan at this time. The documentation in this chart was dictated using [employer] dictation software. Please excuse any dictation errors. HPI General Date/Time Provider Initiated Documentation: 11/14/20 20:48. HPI Narrative: 25-year-old female who is 35 weeks presents today for evaluation of right lower posterior dental pain. Patient has had pain for the last few days. She has been taking Tylenol without significant improvement. She did call her dentist who recommended she come in for antibiotics. Patient denies any other complaints at this time. No other modifying factors. Pain made worse with palpation. Improved minimally by Tylenol. Related Data Home Medications Medication Instructions Recorded Confirmed gummy vitamins See Rx Instructions .ROUTE .COMPLEX 05/08/19 11/14/20 aspirin 81 mg tablet,delayed 81 mg PO DAILY #90 tab 06/12/20 11/14/20 release acetaminophen 500 mg PO PRN PRN 09/09/20 11/14/20 docusate sodium 50 mg capsule 50 mg PO BID #60 cap 09/14/20 11/14/20 penicillin V potassium 500 mg PO QID 10 Days #40 tab 11/14/20 Previous Rx's Medication Instructions Recorded aspirin 81 mg tablet,delayed 81 mg PO DAILY #90 tab 06/12/20 release docusate sodium 50 mg capsule 50 mg PO BID #60 cap 09/14/20 penicillin V potassium 500 mg PO QID 10 Days #40 tab 11/14/20 Allergies Allergy/AdvReac Type Severity Reaction Status Date / Time banana Allergy Hives Unverified 11/14/20 20:51 General Stated Complaint: DentalOral RANDEE: 4 Review of Systems All systems reviewed & are unremarkable except as noted in HPI and below [facility] Medical History Asthma outgrown BV (bacterial vaginosis) 04/07/15. Rx with Metronidazole. 06/30/15 Rx with PO Metronidazole Depression Depression (11/24/11) chronic depressed mood Encounter for management and injection of injectable progestin contraceptive 04/07/15 Depo Provera inj initiated after Nexplanon removed. Genitourinary Chlamydia infection 12/14,02/13 and 05/15 Heart murmur (10/27/11) innocent Idiopathic scoliosis (10/27/11) Missed menses Positive test Previous recurrent miscarriages affecting , antepartum Recurrent acute otitis media outgrown Tobacco abuse Surgical History Dilation and curettage (06/19/13) for embryonic demise at 12w EGA. Status post dilation and curettage 08/15/18; Missed AB at ~8 weeks Family History Mother Anxiety Depression Hypertension Father Anxiety Depression Hypertension Grandmother Mental disorder anxiety/depression Sister Asthma COPD (chronic obstructive pulmonary disease) Social History Smoking/Tobacco Use Status: Current every day Tobacco Type: cigarettes Smoking risk assessment performed?: Yes Alcohol Intake: former Drug use: Never Substance use type: does not use Details: 5-6 cigarettes per day Adopted: No Caregiver/Support person: No Foster care: No Do you need help understanding health information?: Often 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 Date GA/Weeks # Outcome Route Wgt Sex Labor Lgth Anesthesia Location Prov Complic 04/12/13 Unsuccessful 08/15/18 8 Unsuccessful 05/29/19 10 No Unsuccessful Delivery Date: 04/12/13 No notes to display Delivery Date: 08/15/18 Missed AB at ~ 8 weeks; D&C 08/15/18; Nena Tiwari Kamla Farias Delivery Date: 05/29/19 Missed AB at 10.2 weeks; Kamla Farias Exam Narrative Exam Narrative: 1.Const: Well-nourished, Well-developed, appearing stated age 2.Eyes: PERRL, no conjunctival injection, and symmetrical lids. 3.ENT: Atraumatic external nose and ears. Moist MM. Neck: Symmetric, trachea midline, No thyromegaly. Teeth demonstrate good dentition throughout, however there is evidence of a notably fractured and decaying tooth the posterior right lower molars, likely tooth 30 or 31. There is a small abscess adjacent to it on the lateral aspect. No evidence of Ludewig's angina, airway compromise, or other significant swelling. Tympanic membranes are unremarkable bilaterally. 4.CVS: +S1/S2, No murmurs or gallops. Peripheral pulses 2+ and equal in all extremities. Brisk capillary refill in all extremities. 5.RESP: Unlabored respiratory effort. Clear to auscultation bilaterally. No wheezes rales or rhonchi 6.GI: Soft, Nontender/Nondistended, No hepatosplenomegaly. No guarding or rebound. Appropriately gravid abdomen 7.MSK: Normocephalic/Atraumatic, Extremities w/o deformity or ttp No cyanosis or clubbing, Normal movement of all extremities 8.Skin: Warm, Dry. No rashes or lesions. 9.Neuro: glaze supervisor II-XII grossly intact. Sensation grossly intact, no focal neurologic deficits. 10.Psych: (AAO) x3. Appropriate mood and affect Course Vital Signs Vital signs: Vital Signs Temperature 36.2 C L 11/14/20 20:48 Pulse 90 11/14/20 20:48 Respiratory Rate 18 11/14/20 20:48 Blood Pressure 129/86 11/14/20 20:48 Pulse Oximetry 100 11/14/20 20:48 Temperature 36.2 C L 11/14/20 20:48 Temperature Source Temporal Artery Scan 11/14/20 20:48 Pulse 90 11/14/20 20:48 Respiratory Rate 18 11/14/20 20:48 Respiratory Effort Non-Labored 11/14/20 20:54 Blood Pressure 129/86 11/14/20 20:48 Blood Pressure Position Sitting 11/14/20 20:48 Pulse Oximetry 100 11/14/20 20:48 Oxygen Delivery Method Room Air 11/14/20 20:48 Oxygen Flow Rate 0 11/14/20 20:48 Pain Level 10 11/14/20 20:53 Procedures Abscess I/D Site: Other (right lower posterior dental) Side (if applicable): Right Technique: Needle Aspiration Amount of fluid expressed (mL): 2 Irrigation: No Packing used?: None Complications: Other (none) Nerve Block Nerve Block 1: Time out performed: Yes Local Anesthetic: Bupivicaine 0.5% Amount of anesthesia used (mL): 5 Side: right Intraoral Nerve Block: inferior alveolar Procedure Successful: Yes Patient Tolerated Procedure: well Complications: none
[2020-11-14] MEDS: Penicillin V POTASSIUM 500 MG TAB, 4 TABS/BTL PO (21:04)
== END 2020-11-14 21:11 | disposition home or self-care (01) ==
PROVIDERS: Emergency Provider Student in an Organized Health Care Education/Training Program; PCP Nurse Practitioner
DX: O99.613 Diseases of the digestive system complicating pregnancy, third trimester (principal); K04.7 Periapical abscess without sinus; R68.84 Jaw pain; Z3A.35 35 weeks gestation of pregnancy
CPT/HCPCS: 99283

== ENCOUNTER 2020-11-18 10:19 | Outpatient (CLI) | payer MEDICAID, SELFPAY ==
[2020-11-18] VITALS (13 sets, daily range): BP systolic 109; BP diastolic 63; PULSE 69–92; TEMP 36.5; O2SAT 98–100
[2020-11-18] MEDS: Lactated Ringers 1,000 ML 1000 ML IV ×2 (11:22→12:05)
--- NOTE | 2020-11-18 12:18 | ANES.CON_ITS ---
General Date of Service Date of Service: 11/18/20 Reason for Consult Requesting Provider: Eva Cisse How Consult Conducted:: Seen in Office (Seen in OB 306 ) Reason for Consult:: Familial history of scoliosis, patient has been worked up in the past Consult Recommendation after Review:: Patient lumbar spine easily palpable. No available imaging of lumbar spine. I believe the patient would be an unchallenging neuraxial placement if she so chose and is cleared to proceed. Meds Allergies and Home Medications Allergies Allergy/AdvReac Type Severity Reaction Status Date / Time banana Allergy Hives Unverified 11/18/20 10:05 Home Medication Medication Instructions Recorded gummy vitamins See Rx Instructions .ROUTE .COMPLEX 05/08/19 aspirin 81 mg tablet,delayed 81 mg PO DAILY #90 tab 06/12/20 release acetaminophen 500 mg PO PRN PRN 09/09/20 docusate sodium 50 mg capsule 50 mg PO BID #60 cap 09/14/20 penicillin V potassium 500 mg PO QID 10 Days #40 tab 11/14/20 Current Visit Medications: Current Medications Generic Name Dose Route Start Last Admin Trade Name Freq PRN Reason Stop Dose Admin Sodium Chloride 500 mls @ 0 mls/hr 11/18/20 10:55 Saline 500ml Bag IV PRN PRN As Directed Ringer's Solution 1,000 mls @ 1,000 mls/hr 11/18/20 11:56 11/18/20 12:05 IV 11/18/20 12:55 1,000 mls/hr BOLUS ONE Administration IV Miscellaneous Supplies 1 each 11/18/20 11:00 Iv Access IV DIRECTED HEMANT Sodium Chloride 0 ml 11/18/20 10:55 Normal Saline Flush 10 Ml Syr IVP PRN PRN PFSH Active Problems Active Problems: Problem Status Onset Code Abdominal cramping R10.9 Pain, dental K08.89 Abscess, dental K04.7 GERD (gastroesophageal reflux disease) K21.9 Marijuana use F12.90 Z34.90 Depression 11/24/11 F32.9 Idiopathic scoliosis 10/27/11 M41.20 Tobacco abuse Z72.0 Anxiety 03/28/12 F41.9 Tobacco use 07/05/17 Z72.0 Medical History Medical History Asthma outgrown BV (bacterial vaginosis) 04/07/15. Rx with Metronidazole. 06/30/15 Rx with PO Metronidazole Depression Depression (11/24/11) chronic depressed mood Encounter for management and injection of injectable progestin contraceptive 04/07/15 Depo Provera inj initiated after Nexplanon removed. Genitourinary Chlamydia infection 12/14,02/13 and 05/15 Heart murmur (10/27/11) innocent Idiopathic scoliosis (10/27/11) Missed menses Positive test Previous recurrent miscarriages affecting , antepartum Recurrent acute otitis media outgrown Tobacco abuse Surgical History Surgical History Dilation and curettage (06/19/13) for embryonic demise at 12w EGA. Status post dilation and curettage 08/15/18; Missed AB at ~8 weeks Tobacco Smoking/Tobacco Use Status: Current every day Tobacco Type: cigarettes Alcohol Alcohol Intake: former Substance Use Substance use: Never Substance use type: does not use Details: 5-6 cigarettes per day Prental History History 4 Para 0 Hx # Term Pregnancies 0 Multiple births 0 Hx # Pregnancies 0 Ectopic pregnancies 0 AB induced 0 Hx Number of Living Children 0 AB spontaneous 3 Past Pregnancies Del. Date GA/Weeks # Outcome Route Wgt Sex Labor Lgth Anesthes ia Location Prov Complic 04/12/13 Unsuccessful 08/15/18 8 Unsuccessful 05/29/19 10 No Unsuccessful Delivery Date: 04/12/13 No notes to display Delivery Date: 08/15/18 Missed AB at ~ 8 weeks; D&C 08/15/18; [facility] Delivery Date: 05/29/19 Missed AB at 10.2 weeks; [facility] Vital Signs & Lab Results Vital Signs Most Recent Vital Signs: Most Recent Vital Signs Pulse BP Pulse Ox 78 109/63 99 11/18/20 12:14 11/18/20 11:25 11/18/20 12:14 Point of Care Results Nursing Point of Care Results: No Data to Display Lab Results Blood Type / Crossmatch: No Data to Display Complete Blood Count: No Data to Display Complete Metabolic Panel: No Data to Display Liver Function Panel: No Data to Display Coagulation Panel: No Data to Display Cardiac Panel: No Data to Display Arterial Blood Gas: No Data to Display Venous Blood Gas: No Data to Display Pancreas Panel: No Data to Display Thyroid Panel: No Data to Display Infectious Disease: No Data to Display Blood Cultures: No Data to Display Toxicology Panel: No Data to Display Panel: No Data to Display
--- NOTE | 2020-11-18 13:39 | W.OBNST ---
Date of service: 11/18/20 Time of Service: 13:39 NST Evaluation Reason for NST Reasons for Nonstress Test: OTHER, SEE COMMENT Reason for NST Other: Cramping Gestational Age Gestational Age in Weeks and Days: 35 Weeks and 5Days Test and Monitor Explained Test/Monitor Explained: Test Explained, Monitor Explained and Patient Verbalized Understanding Vital Signs Blood Pressure: 109/63 Pulse: 69 Temperature: 97.7 F NST Information Date on Monitor: 11/18/20 Time on Monitor: 10:25 NST Interventions: IV Fluids NST Evaluation Patient States Movement: Present FHR Baseline: 110 Variability: Moderate 6-25 bpm Accelerations: 15x15 NST Results: Reactive Note NST Note Note: NST is reactive, irregular mild contractions upon arrival diminished after 2 liters of LR infused IV. Cvx closed, thinned to 80% and mid pelvis, vtx -3, intact membranes. Urine appears concentrated after 2 liter infusion, sent for UA and UDS Anesthesia and LC consult completed while in the Center Pt discharged after 2 hrs, RTO 1 wk. NST Reviewed and Verified by: Eva Cisse
[2020-11-18 14:22] LABS: Bilirubin Negative (Negative); Blood Negative (Negative); Clarity Clear (Clear); Glucose Negative (Negative); Ketones Negative (Negative); Leukocyte Esterase Negative (Negative); Nitrite Negative (Negative); Specific Gravity 1.015 (1.005-1.025)
[2020-11-18 14:24] LABS: *AMPHETAMINES SCREEN URINE Negative (Negative); *BARBITURATES SCREEN URINE Negative (Negative); *BENZODIAZEPINES SCREEN URINE Negative (Negative); Cannabinoids THC Positive (Negative); Cocaine Screen,Urine Negative (Negative); METHADONE URINE SCREEN Negative (Negative); OPIATES URINE SCREEN Negative (Negative); Tricyclic Antidepressants Negative (Negative)
[2020-11-24 09:36] LABS: Buprenorphine Negative ng/mL (Cutoff: 5.0); Norbuprenorphine Negative ng/mL (Cutoff: 2.5)
== END 2020-11-18 13:43 | disposition home or self-care (01) ==
LOC: BCD 10:21 → OBS 10:45
PROVIDERS: PCP Nurse Practitioner; Visit Provider Advanced Practice Midwife
DX: O60.03 Preterm labor without delivery, third trimester (principal); Z3A.35 35 weeks gestation of pregnancy
CPT/HCPCS: 80307; 96360; 96361; 59025; 81003; 87081; G0378

== ENCOUNTER 2020-12-07 16:35 | Outpatient (CLI) | payer MEDICAID, SELFPAY ==
[2020-12-07 17:37] VITALS: BP 112/65; PULSE 86; TEMP 36.8
[2020-12-07 17:38] VITALS: BP 112/65; PULSE 86; TEMP 36.8
[2020-12-07 18:19] LABS: ROM Plus Negative
--- NOTE | 2020-12-07 19:12 | W.OBNST ---
Date of service: 12/07/20 Time of Service: 19:12 NST Evaluation Reason for NST Reasons for Nonstress Test: LABOR Gestational Age Gestational Age in Weeks and Days: 38 Weeks and 4Days Test and Monitor Explained Test/Monitor Explained: Patient Verbalized Understanding Vital Signs Blood Pressure: 112/65 Pulse: 86 Temperature: 98.2 F NST Information Date on Monitor: 12/07/20 Time on Monitor: 17:30 Date off Monitor: 12/07/20 Time off Monitor: 18:09 Total Time on Monitor: 39 NST Interventions: PO Hydration and Meal Given NST Evaluation Patient States Movement: Present FHR Baseline: 125 Variability: Moderate 6-25 bpm Accelerations: 15x15 Decelerations: None NST Results: Reactive Note NST Note Note: Eva had painful contractions this morning and awoke with some leaking of fluid and discharge. It occurred one time and did not recur today. No evidence of labor. ROM plus neg. Signs of labor reviewed. NST Reviewed and Verified by: Judie Martin
[2020-12-07 19:14] VITALS: BP 112/65; PULSE 86; TEMP 36.8
[2020-12-08 10:25] VITALS: BP 140/86; PULSE 103
[2020-12-08 10:50] VITALS: BP 127/84; PULSE 112
== END 2020-12-07 18:36 | disposition home or self-care (01) ==
LOC: BCD 16:37 → OBS 17:27
PROVIDERS: PCP Nurse Practitioner; Visit Provider Advanced Practice Midwife
DX: O60.03 Preterm labor without delivery, third trimester (principal); Z3A.38 38 weeks gestation of pregnancy; Z03.71 Encounter for suspected problem with amniotic cavity and membrane ruled out
CPT/HCPCS: 59025; 84112

== ENCOUNTER 2020-12-09 06:45 | Observation (INO) | payer MEDICAID, SELFPAY ==
[2020-12-09 06:56] VITALS: BP 122/81; PULSE 102; RESP 18; TEMP 36.7; O2SAT 97
--- NOTE | 2020-12-09 07:34 | W.PM.OBHPL1 ---
Date of service: 12/09/20 Time of Service: 07:34 Assessment and Plan Assessment and plan (1) Spontaneous onset of labor: Status: Acute Assessment and plan: Admitted to observation for rule out labor. Eva was encouraged to ambulate and be in comfortable positions and will reassess in 2 hours. Report to Eva ahn CNM who will be assuming her care, OB-HPI Labor/Delivery History of Present Illness Reason for Visit: Rule Out Labor Chief Complaint: Uterine Contractions. TALON Calculator Estimated Delivery Date Method Current WG Current Estimate 12/17/20 LMP (Certain) 38w 6d Other Estimates 12/18/20 Ultrasound #1 38w 5d Comments: Eva called and reported contractions that were every 20 minutes lasting 8 minutes since 339. She is here to assess for signs of labor. History of Present Expected Delivery Route/Plan - LAURENM FOB/boyfriend - Nahid Ireland (first child) - Marisol Gustafson GBS negative @ 36 wks Would like to labor and maybe in tub Specific Issues/Plan 1. First trimester spotting with hx SAB x3. 2. Low dose ASA: Nullip/sister had pre-e/ethnicity, start @ 13 wks: 81mg/162mg alt 3. [place] and CF drawn 06/12/20 - Normal [place] and CF results 4. Hx depression, PHQ9 score=7, no meds, denies current depression, declines referral 5. Cig x2/day & MJ use daily, counseled to cease to use, made aware of POSC if THC+ @ 28 wks 5a. inital UDS + THC, repeated at 35 wks 11/18/20: THC+, will refer to [facility] for POSC=done 11/26 6. hx mild scoliosis, will consider need for MENTAL HEALTH CASE MANAGER eval in 3rd trimester. Anesthesia consult done 11/18/20 7. Eva and her partner do not plan to receive covid vaccine. 8. Chronic constipation- colace and fiber daily recommended daily 9. Covid 19 exposure - testing ordered at her job 2 days post exposure- results neg 2020- advised retesting at 5 days 10. Would like to meet with , done 11/18/20 [facility] Medical History (Updated 12/09/20 @ 07:39 by Judie Martin CNM) Asthma outgrown BV (bacterial vaginosis) 04/07/15. Rx with Metronidazole. 06/30/15 Rx with PO Metronidazole Depression Depression (11/24/11) chronic depressed mood Genitourinary Chlamydia infection 12/14,02/13 and 05/15 Heart murmur (10/27/11) innocent Idiopathic scoliosis (10/27/11) Missed menses Positive test Previous recurrent miscarriages affecting , antepartum Recurrent acute otitis media outgrown Tobacco abuse Surgical History Dilation and curettage (06/19/13) for embryonic demise at 12w EGA. Status post dilation and curettage 08/15/18; Missed AB at ~8 weeks Family History Mother Anxiety Depression Hypertension Father Anxiety Depression Hypertension Grandmother Mental disorder anxiety/depression Sister Asthma COPD (chronic obstructive pulmonary disease) Social History Smoking/Tobacco Use Status: Current every day Tobacco Type: cigarettes Smoking risk assessment performed?: Yes Alcohol Intake: former Drug use: Never Substance use type: does not use Details: 5-6 cigarettes per day Adopted: No Caregiver/Support person: No Foster care: No Do you need help understanding health information?: Often 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 Date GA/Weeks # Outcome Route Wgt Sex Labor Lgth Anesthesia Location Prov Complic 04/12/13 Unsuccessful 08/15/18 8 Unsuccessful 05/29/19 10 No Unsuccessful Delivery Date: 04/12/13 No notes to display Delivery Date: 08/15/18 Missed AB at ~ 8 weeks; D&C 08/15/18; Kamla Maharaj Delivery Date: 05/29/19 Missed AB at 10.2 weeks; Kamla Farias Allergies and Home Medications Allergies Allergy/AdvReac Type Severity Reaction Status Date / Time banana Allergy Hives Unverified 12/09/20 07:24 Home Medications Medication Instructions Recorded Confirmed Type gummy vitamins See Rx Instructions .ROUTE .COMPLEX 05/08/19 12/09/20 History aspirin 81 mg tablet,delayed 81 mg PO DAILY #90 tab 06/12/20 12/09/20 Rx release acetaminophen 500 mg PO PRN PRN 09/09/20 12/09/20 History docusate sodium 50 mg capsule 50 mg PO BID #60 cap 09/14/20 12/03/20 Rx Exam Physical Exam Vital signs: Temp Pulse Resp BP Pulse Ox 98.1 F 102 H 18 122/81 97 12/09/20 06:56 12/09/20 06:56 12/09/20 06:56 12/09/20 06:56 12/09/20 06:56 Vital Signs Reviewed: Yes Constitutional Constitutional: no acute distress Detailed Labor and Delivery Exam Dilation: 1 Effacement (%): 50 Cervix position: posterior Consistency: soft Lilly Score: Cervical Points Exam 0 1 2 3 Dilation Closed 1-2cm 3-4 cm 5-6cm Effacement 0-30% 40-50% 60-70% 80% Consistency Firm Medium Soft Station -3 -2 -1,0 +1,+2 Position Posterior Mid Anterior Amniotic Membrane Status: Intact Contraction Frequency(min): every 4-7 minutes Contraction Duration(sec): 50-60 Contraction Intensity: Mild Fetus A Heart Rate Baseline: 120 Monitor Accelerations: 15 X 15 Monitor Decelerations: None Variability: Minimal (1-5 BPM) Presentation: Cephalic Categories: Category I Risk Assessment Risk for Shoulder Dystocia Historical/Initial OB: NEGATIVE FOR: Pelvic Abnormality, Pre- BMI>30, Previous Shoulder Dystocia or Previous Macrosomia 40 Weeks: NEGATIVE FOR: EFW> 4500 gms, Maternal Weight Gain >40lb or Post Dates Risk for Pre-Eclampsia Date Initiated/Initials: to start 06/12/20 jk Yes, if one or more: NEGATIVE FOR: Hx Pre-E/Gest HTN, Chronic HTN, Multiple Gestation, Pre-gestational DM, Renal Disease, Systemic Lupus or APA Syndrome Yes, if 2 or more: POSITIVE FOR: Nulliparity, ethinicty and Mother/Sister w/ Pre-E; NEGATIVE FOR: Age>= 35 yrs, >10yr btwn pregnancies, BMI>30 or Previous IUGR Risk for Post- Hemorrhage Initial: NEGATIVE FOR: Multiple Gestation, Previous PPH, Known Clotting Deficiency, Grand Multiparity or Anticoagulation At Risk?: No Risks Reviewed Risks Reviewed Upon Admission: Yes
[2020-12-09] MEDS: Lactated Ringers 1,000 ML 999 ML IV ×2 (09:25→10:30)
--- NOTE | 2020-12-09 10:44 | W.PM.PROGNOT ---
Date of Service Date of service: 12/09/20 Time of Service: 10:44 Assessment and Plan Assessment and plan (1) Abdominal cramping: Status: Acute Assessment and plan: A: 25 yo G1 @ 38 wks postcoital prodomal symptoms no labor, no cervical change category 1 tracing mild maternal dehydration corrected with IVF P: Discharge to home to await active labor Sx of labor reviewed encouraged to rest, eat small frequent meals, push oral fluid intake f/up with full stack developer within 2 days or as needed Subjective Subjective Patient reports: no new complaints, feels better and pain is less Exam Narrative Exam Narrative: 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 Const General: cooperative, healthy appearing and well developed Nutritional Appearance: average body habitus Orientation: alert, awake and oriented x3 Chest Chest: normal inspection of the chest Resp Effort & Inspection: normal respiratory effort GI Inspection: normal to inspection Palpation: soft External Female Exam: normal external appearance Skin General skin exam: no rashes or lesions noted and elasticity normal Objective Last Vital Signs Temp 98.1 F 12/09/20 06:56 Pulse 102 H 12/09/20 06:56 Resp 18 12/09/20 06:56 BP 122/81 12/09/20 06:56 Pulse Ox 97 12/09/20 06:56 Reviewed Pertinent PMH: Yes Objective Narrative Objective Narrative: Normotensive, afebrile Category 1 tracing, reactive NST Irregular short and frequent contractions on arrival in unit SVE x2 by RN 2 hours apart, reports no change, confirmed by CNM exam Cvx is FT/90% midpelvis, vtx -1, intact membranes, pink tinge to vaginal mucous Pt states she is very sleepy, has not gone to bed yet, FOB asleep on españa bed Denies nausea, vomiting, or ROM Was in unit 2 days ago for r/o labor, ROM test was negative
[2020-12-09 11:00] VITALS: BP 122/81; PULSE 102; TEMP 36.7
--- NOTE | 2020-12-09 11:53 | W.OBNST ---
Date of service: 12/09/20 Time of Service: 11:53 NST Evaluation Reason for NST Reasons for Nonstress Test: OTHER, SEE COMMENT Reason for NST Other: rule out labor Gestational Age Gestational Age in Weeks and Days: 38 Weeks and 5Days Test and Monitor Explained Test/Monitor Explained: Test Explained, Monitor Explained and Patient Verbalized Understanding Vital Signs Blood Pressure: 122/81 Pulse: 102 Temperature: 98.1 F Urine Results Urine Protein: Positive Urine Ketones: Negative Urine Glucose: Negative Urine Blood: Positive NST Information Date on Monitor: 12/09/20 Time on Monitor: 06:45 Date off Monitor: 12/09/20 Time off Monitor: 10:59 Total Time on Monitor: 254 NST Interventions: PO Hydration Contraction Frequency: 1-8 NST Evaluation Patient States Movement: Present FHR Baseline: 125 Variability: Moderate 6-25 bpm Accelerations: 15x15 Decelerations: None NST Results: Reactive Note NST Note NST Reviewed and Verified by: Eva Cisse
[2020-12-09 11:54] VITALS: BP 122/81; PULSE 102; TEMP 36.7
== END 2020-12-09 11:02 | disposition home or self-care (01) ==
PROVIDERS: Admitting Provider Advanced Practice Midwife; PCP Nurse Practitioner; Visit Provider Advanced Practice Midwife
DX: O60.03 Preterm labor without delivery, third trimester (principal); Z3A.38 38 weeks gestation of pregnancy
CPT/HCPCS: 92610; 96360; 59025; G0378

== ENCOUNTER 2020-12-10 05:01 | Inpatient (IN) | payer MEDICAID, SELFPAY ==
[2020-12-10] VITALS (116 sets, daily range): BP systolic 89–128; BP diastolic 52–81; PULSE 96–154; RESP 16–18; TEMP 36.6–39.3; O2SAT 91–100; BMI 29.2
--- NOTE | 2020-12-10 05:49 | W.PM.OBHPL1 ---
Date of service: 12/10/20 Time of Service: 05:50 Assessment and Plan Assessment and plan (1) Spontaneous onset of labor: Status: Acute Assessment and plan: A: 25 yo @ 39 wks, early labor Poor tolerance of contractions, need for pain management Cvx favorable with sheth score of 9 Low risk of SD or PPH, GBS negative Had anesthesia consult last month for fam hx scoliosis MJ use in , POSC in place P: Admit to BC, CBC, T&S, COVID swab Start IVF, informed choice for regional anesthesia Prepare for pitocin augmentation if indicated Anticipate OB-HPI Labor/Delivery History of Present Illness Reason for Visit: term rule out labor Chief Complaint: Uterine Contractions. TALON Calculator Estimated Delivery Date Method Current WG Current Estimate 12/17/20 LMP (Certain) 39w 0d Other Estimates 12/18/20 Ultrasound #1 38w 6d Comments: Pt reports rough night, strong painful contractions with back and hip pain every 5-7 minutes for a few hours that increased in frequency while on the way to the hospital, continuous blood tinged vaginal discharge noted by pt's boyfriend. History of Present Expected Delivery Route/Plan - CNM FOB/boyfriend - Nahid Ireland (first child) BG Anoop Gustafson GBS negative @ 36 wks Would like to labor and maybe in tub Specific Issues/Plan 1. First trimester spotting with hx SAB x3. 2. Low dose ASA: Nullip/sister had pre-e/ethnicity, start @ 13 wks: 81mg/162mg alt 3. [place] and CF drawn 06/12/20 - Normal [facility] and CF results 4. Hx depression, PHQ9 score=7, no meds, denies current depression, declines referral 5. Cig x2/day & MJ use daily, counseled to cease to use, made aware of POSC if THC+ @ 28 wks 5a. inital UDS + THC, repeated at 35 wks 11/18/20: THC+, will refer to [facility] for POSC=done 11/26 6. hx mild scoliosis, will consider need for BAG SORTER eval in 3rd trimester. Anesthesia consult done 11/18/20 7. Eva and her partner do not plan to receive covid vaccine. 8. Chronic constipation- colace and fiber daily recommended daily 9. Covid 19 exposure - testing ordered at her job 2 days post exposure- results neg 2020- advised retesting at 5 days 10. Would like to meet with CAR[facility], done 11/18/20 Assessment: History Reviewed & Current Narrative: Pt was in center on the 12/07 for possible labor and ROM, was discharged to home after ROM test was negative, returned to unit yesterday for possible labor, had no cervical change at ft/90% over 4 hour period of observation, was given IV hydration and discharged to home, pt returns this morning very upset with contraction pain especially in her hips and back, also reporting a migraine headache. Informed Consent Informed Consent: Regional Anesthesia and Risk,Benefits,Alternatives Discussed Review of Systems All systems reviewed & are unremarkable except as noted in HPI and below Constitutional Constitutional: Reports as per HPI Cardiovascular Cardiovascular: Reports system reviewed and no additional complaints, except as documented Respiratory Respiratory: Reports system reviewed and no additional complaints, except as documented Gastrointestinal Gastrointestinal: Reports system reviewed and no additional complaints, except as documented Genitourinary Genitourinary: Reports vaginal discharge Musculoskeletal Musculoskeletal: Reports back pain Integumentary/Breasts Skin/Breast: Reports system reviewed and no additional complaints, except as documented Psychiatric Psychiatric: Reports system reviewed and no additional complaints, except as documented [facility] Medical History (Updated 12/10/20 @ 06:01 by Eva Cisse) Asthma outgrown BV (bacterial vaginosis) 04/07/15. Rx with Metronidazole. 06/30/15 Rx with PO Metronidazole Depression Depression (11/24/11) chronic depressed mood Genitourinary Chlamydia infection 12/14,02/13 and 05/15 Heart murmur (10/27/11) innocent Idiopathic scoliosis (10/27/11) Missed menses Positive test Previous recurrent miscarriages affecting , antepartum Recurrent acute otitis media outgrown Spontaneous onset of labor Tobacco abuse Surgical History Dilation and curettage (06/19/13) for embryonic demise at 12w EGA. Status post dilation and curettage 08/15/18; Missed AB at ~8 weeks Family History Mother Anxiety Depression Hypertension Father Anxiety Depression Hypertension Grandmother Mental disorder anxiety/depression Sister Asthma COPD (chronic obstructive pulmonary disease) Social History Smoking/Tobacco Use Status: Current every day Tobacco Type: cigarettes Smoking risk assessment performed?: Yes Alcohol Intake: former Drug use: Never Substance use type: does not use Details: 5-6 cigarettes per day Adopted: No Caregiver/Support person: No Foster care: No Do you need help understanding health information?: Often 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 Date GA/Weeks # Outcome Route Wgt Sex Labor Lgth Anesthesia Location Prov Complic 04/12/13 Unsuccessful 08/15/18 8 Unsuccessful 05/29/19 10 No Unsuccessful Delivery Date: 04/12/13 No notes to display Delivery Date: 08/15/18 Missed AB at ~ 8 weeks; D&C 08/15/18; Kamla Maharaj Delivery Date: 05/29/19 Missed AB at 10.2 weeks; Kamla Farias Meds Allergies and Home Medications Allergies Allergy/AdvReac Type Severity Reaction Status Date / Time banana Allergy Hives Unverified 12/09/20 07:24 Home Medications Medication Instructions Recorded Confirmed Type gummy vitamins See Rx Instructions .ROUTE .COMPLEX 05/08/19 12/09/20 History aspirin 81 mg tablet,delayed 81 mg PO DAILY #90 tab 06/12/20 12/09/20 Rx release acetaminophen 500 mg PO PRN PRN 09/09/20 12/09/20 History docusate sodium 50 mg capsule 50 mg PO BID #60 cap 09/14/20 12/09/20 Rx Exam Physical Exam Vital signs: Pulse BP 137 H 118/70 12/10/20 05:44 12/10/20 05:44 Vital Signs Reviewed: Yes Notable Details: maternal tachycardia noted at admission, pt writhing and crying.Temp 99.1 Constitutional Constitutional: moderate distress and average body habitus Detailed Labor and Delivery Exam Dilation: 2 Effacement (%): 100 station: -1 Cervix position: mid Consistency: soft SHETH Score(Cervical Ripeness Score): 9 Amniotic Membrane Status: Intact Ferning: Absent Contraction Frequency(min): irregular, q 2-5 Contraction Duration(sec): 50-70 Contraction Intensity: Mild/Moderate Fetus A Heart Rate Baseline: 155 Monitor Decelerations: None Variability: Moderate (6-25 BPM) Presentation: Cephalic Categories: Category I Est. Weight: 7 lb 4.404 oz Est. Weight: 3300 gms HEENT Exam HEENT Exam: Normal Neck Exam Neck Exam: Normal Chest/Brest/Axilla Exam Chest Exam: Normal Respiratory Exam Respiratory Exam: Not Done Cardiovascular Exam Cardiovascular Exam: Normal Abdominal Exam Abdominal Exam: Normal (Gravid, nontender) Rectal Exam Rectal Exam: Not Done Exam Exam: Normal (perineum dry on admission exam, introital swab for ferns collected=negative) Extremities Exam Extremities Exam: Normal Back/Spine/Pelvis Exam Back Exam: Normal Pelvis Adequate: Yes Skin Exam Skin Exam: Normal Neurological Exam Neurological Exam: Normal Psychiatric Exam Psychiatric Exam: Normal (crying, writhing with pain upon arrival to unit) Risk Assessment Risk for Shoulder Dystocia Historical/Initial OB: NEGATIVE FOR: Pelvic Abnormality, Pre- BMI>30, Previous Shoulder Dystocia or Previous Macrosomia 40 Weeks: NEGATIVE FOR: EFW> 4500 gms, Maternal Weight Gain >40lb or Post Dates Increased Risk?: No Risk for Pre-Eclampsia Daily Dose ASA Indicated: Yes Date Initiated/Initials: to start 06/12/20 jk Yes, if one or more: NEGATIVE FOR: Hx Pre-E/Gest HTN, Chronic HTN, Multiple Gestation, Pre-gestational DM, Renal Disease, Systemic Lupus or APA Syndrome Yes, if 2 or more: POSITIVE FOR: Nulliparity, ethinicty and Mother/Sister w/ Pre-E; NEGATIVE FOR: Age>= 35 yrs, >10yr btwn pregnancies, BMI>30 or Previous IUGR Risk for Post- Hemorrhage Initial: NEGATIVE FOR: Multiple Gestation, Previous PPH, Known Clotting Deficiency, Grand Multiparity or Anticoagulation At Risk?: No Counseled re: Active Management: Yes Risks Reviewed Risks Reviewed Upon Admission: Yes
[2020-12-10 06:01] LABS: Source Nasal/Nares
--- NOTE | 2020-12-10 06:12 | ANES.PREOP_ITS ---
General Info Date of Service Date Performed: 12/10/20 Height: 5 ft Weight: 68.039 kg Body Mass Index (BMI): 29.2 Meds Allergies and Home Medications Allergies Allergy/AdvReac Type Severity Reaction Status Date / Time banana Allergy Hives Unverified 12/09/20 07:24 Home Medication Medication Instructions Recorded gummy vitamins See Rx Instructions .ROUTE .COMPLEX 05/08/19 aspirin 81 mg tablet,delayed 81 mg PO DAILY #90 tab 06/12/20 release acetaminophen 500 mg PO PRN PRN 09/09/20 docusate sodium 50 mg capsule 50 mg PO BID #60 cap 09/14/20 Current Visit Medications: Current Medications Generic Name Dose Route Start Last Admin Trade Name Freq PRN Reason Stop Dose Admin Fentanyl/Ropivacaine 200 ml 12/10/20 06:00 Fentanyl/Ropivacaine 2 Mcg/Ml And 0.1% 200 Ml [place] EP DIRECTED HEMANT Sodium Chloride 500 mls @ 0 mls/hr 12/10/20 05:44 Saline 500ml Bag IV PRN PRN As Directed Ringer's Solution 1,000 mls @ 125 mls/hr 12/10/20 05:45 IV INFUSION HEMANT Ringer's Solution 500 mls @ 500 mls/hr 12/10/20 05:46 IV 12/10/20 06:45 BOLUS ONE IV Miscellaneous Supplies 1 each 12/10/20 05:45 Iv Access IV DIRECTED HEMANT Sodium Chloride 0 ml 12/10/20 05:44 Normal Saline Flush 10 Ml Syr IVP PRN PRN PFSH Active Problems Active Problems: Problem Status Onset Code Spontaneous onset of labor Abdominal cramping R10.9 Pain, dental K08.89 Abscess, dental K04.7 GERD (gastroesophageal reflux disease) K21.9 Marijuana use F12.90 Z34.90 Depression 11/24/11 F32.9 Idiopathic scoliosis 10/27/11 M41.20 Tobacco abuse Z72.0 Anxiety 03/28/12 F41.9 Tobacco use 07/05/17 Z72.0 Medical History Medical History (Updated 12/10/20 @ 06:01 by Eva Cisse) Asthma outgrown BV (bacterial vaginosis) 04/07/15. Rx with Metronidazole. 06/30/15 Rx with PO Metronidazole Depression Depression (11/24/11) chronic depressed mood Genitourinary Chlamydia infection 12/14,02/13 and 05/15 Heart murmur (10/27/11) innocent Idiopathic scoliosis (10/27/11) Missed menses Positive test Previous recurrent miscarriages affecting , antepartum Recurrent acute otitis media outgrown Spontaneous onset of labor Tobacco abuse Surgical History Surgical History Dilation and curettage (06/19/13) for embryonic demise at 12w EGA. Status post dilation and curettage 08/15/18; Missed AB at ~8 weeks Tobacco Smoking/Tobacco Use Status: Current every day Tobacco Type: cigarettes Alcohol Alcohol Intake: former Substance Use Substance use: Never Substance use type: does not use Details: 5-6 cigarettes per day Prental History History 4 Para 0 Hx # Term Pregnancies 0 Multiple births 0 Hx # Pregnancies 0 Ectopic pregnancies 0 AB induced 0 Hx Number of Living Children 0 AB spontaneous 3 Past Pregnancies Del. Date GA/Weeks # Outcome Route Wgt Sex Labor Lgth Anesthes ia Location Prov Complic 04/12/13 Unsuccessful 08/15/18 8 Unsuccessful 05/29/19 10 No Unsuccessful Delivery Date: 04/12/13 No notes to display Delivery Date: 08/15/18 Missed AB at ~ 8 weeks; D&C 08/15/18; [facility] Delivery Date: 05/29/19 Missed AB at 10.2 weeks; [facility] Vital Signs and Lab Results Vital Signs Most Recent Vital Signs in EMR: Most Recent Vital Signs Temp Pulse BP Pulse Ox 37.3 C 140 H 118/70 100 12/10/20 06:08 12/10/20 06:11 12/10/20 05:44 12/10/20 06:11 Lab Results Result Diagrams: 12/10/20 05:44 Blood Type / Crossmatch: No Data to Display Complete Blood Count: No Data to Display Complete Metabolic Panel: No Data to Display Liver Function Panel: No Data to Display Coagulation Panel: No Data to Display Cardiac Panel: No Data to Display Arterial Blood Gas: No Data to Display Venous Blood Gas: No Data to Display Pancreas Panel: No Data to Display Thyroid Panel: No Data to Display Infectious Disease: Coronavirus 2019 Source Nasal/Nares 12/10/20 05:56 12/10/20 Blood Cultures: No Data to Display Toxicology Panel: Urine Amphetamines Screen Negative (Negative) 11/18/20 13:06 11/18/20 Urine Benzodiazepines Screen Negative (Negative) 11/18/20 13:06 11/18/20 Urine Barbiturates Screen Negative (Negative) 11/18/20 13:06 11/18/20 Urine Cocaine Screen Negative (Negative) 11/18/20 13:06 11/18/20 Urine Methadone Screen Negative (Negative) 11/18/20 13:06 11/18/20 Urine Opiates Screen Negative (Negative) 11/18/20 13:06 11/18/20 Ur Tricyclic Antidepressants Screen Negative (Negative) 11/18/20 13:06 11/18/20 Ur Tetrahydrocannabinol (THC) Scrn Positive (Negative) A 11/18/20 13:06 11/18/20 Panel: No Data to Display Anesthesia Assessment and Plan Anesthesia History Personal History: No History of Anesthesia Complications Family History: No Family History of Anesthesia Complications Exercise Tolerance Exercise Tolerance: Metabolic Equivalents>4 Pertinent Negatives Pertinent Negatives: No Symptoms of GERD, No Major Cardiovascular Symptoms or Complaints, No Major Pulmonary Symptoms or Complaints and No History of CVA/TIA Cardiac & Pulmonary Exam Cardiac Exam: Normal S1/S2 Heart Sounds Pulmonary Exam: Clear Bilateral Breath Sounds Airway Exam Known Difficult Airway: No Mallampati Class: 3 Mouth Opening: Normal (> 3cm) Thyromental Distance: Greater than 3 cm Neck Range of Motion: Full ROM Neck Circumference: Normal Teeth Condition: Normal Dentition ASA Classification ASA Score: ASA 2 Emergency Case?: No NPO Status NPO Status: NPO Clears >2 hours, Solids >8 hours Status Status: Confirmed Anesthesia Plan Resuscitation Status: Full Code Anesthesia Technique: Epidural Anesthesia Airway Planned: Natural Airway Monitors Used: Standard Monitors
[2020-12-10 06:26] LABS: HCT 29.8 % (36.0-46.0); HGB 9.9 g/dL (11.2-15.7); MCH 28.9 pg (27.0-33.0); MCHC 33.2 % (32.0-36.0); MCV 87.1 fL (80-95); MPV 10.2 fL (8.0-11.0); Platelet Count 174 10^3/uL (130-400); RBC 3.42 10^6/uL (3.93-5.22); RDW 13.4 % (11.7-14.6); RDW-SD 42.6 fL; WBC 12.28 10^3/uL (4.4-10.8)
[2020-12-10] MEDS: FentaNYL/ROPIvacaine 2 mcg/ml and 0.1% 200 ML CADD Cassette EP (06:40)
[2020-12-10 06:51] LABS: COVID-19 PCR Negative (Negative)
--- NOTE | 2020-12-10 06:53 | ANES.NEUR_ITS ---
Epidural/Spinal Catheter Date Performed: 12/10/20 Procedure Start: 06:40 Procedure Stop: 06:50 Requesting Provider: Eva Cisse Procedure Location: Obstetrics Reason Performed: Labor Epidural Standard Monitors Applied: Blood Pressure, SpO2 and See EMR for corresponding vital signs Patient Position: Sitting Sedation Given (Indicate Dose Given): No Sedation given Patient Mental Status: Awake Sterility: Hand Hygiene, Surgical Cap, Surgical Mask, Sterile Gloves, Sterile Drape/Sheet and Chlorhexidine Procedure Location: L2-L3 Interspace Epidural Needle: Tuohy 18 Gauge Needle Length: 3.5 Inch Needle Approach: Midline Epidural Procedure: Skin Prepped, Sterile Drape Placed, 1% Lidocaine to skin and subcutaneous tissue with 25G needle, Tuohy Needle placed, SUZIE to Saline Used, Negative CSF Flow and Tuohy Needle Removed Catheter Placed?: Catheter Placed Test Dose (Indicate Dose Given): 3ml 1.5% Lidocaine with 1:200K Epinephrine Given and Negative Test Dose Loss of Resistance Depth (cm): 7 Catheter depth at skin (cm): 14 Dressing: [place] Dressing Placed, Tegaderm Applied, Mastisol Used and Dressing reinforced with Tape Epidural Provider Bolus (Indicate Dose Given): Total bolus dose given in 3- 5 ml divided doses and Total Ropivacaine 0.1% with Fentanyl 2mcg/ml Given from pump (ml) Dose:: 5 Additives (Indicate Dose Given ): None Infusion Medication: Medication Infusion Began Medication Infusion: Ropivacaine 0.1% with Fentanyl 2mcg/ml Maintenance Infusion Rate (ml/hour): 10 PCEA Bolus Dose (ml): 5 Block Level: N/A Paresthesia: None Ultrasound: Not Used Number of Attempts (See previous attempts in note section): 1 Procedure Tolerated: No Complications Procedure Outcome: Successful Performed By: Andrés Espino Supervised By: Lynn Frank
[2020-12-10] MEDS: Lactated Ringers 500 ML IV (07:00)
--- NOTE | 2020-12-10 07:14 | PGE_ITS ---
Date of service: 12/10/20 Time of Service: 07:14 Informed Consent Informed Consent: Augmentation of Labor, Risk,Benefits,Alternatives Discussed and Other (AROM) Assessment and Plan Assessment and plan (1) Spontaneous onset of labor: Status: Acute Assessment and plan: A: primipara, early labor epidural, category 1 tracing questionable adequacy of labor anemia with hgb 9.9 maternal tachycardia improving, now 110-120 bpm P: Reviewed pitocin augmentation and AROM with pt Place maldonado, monitor hydration status Encourage pt to rest/sleep and use [employer] prn Dr. Jacob consulting Anticipate (2) Anemia affecting in third trimester: Status: Acute Objective Abnormal lab results 12/10/20 Range/Units 05:50 WBC 12.28 H (4.4-10.8) 10^3/uL RBC 3.42 L (3.93-5.22) 10^6/uL Hgb 9.9 L (11.2-15.7) g/dL Hct 29.8 L (36.0-46.0) % Temp Pulse BP Pulse Ox 99.1 F 125 H 105/58 L 96 12/10/20 06:08 12/10/20 07:09 12/10/20 07:00 12/10/20 07:09 Laboratory Results WBC 12.28 10^3/uL (4.4-10.8) H 12/10/20 05:50 RBC 3.42 10^6/uL (3.93-5.22) L 12/10/20 05:50 Hgb 9.9 g/dL (11.2-15.7) L 12/10/20 05:50 Hct 29.8 % (36.0-46.0) L 12/10/20 05:50 MCV 87.1 fL (80-95) 12/10/20 05:50 MCH 28.9 pg (27.0-33.0) 12/10/20 05:50 MCHC 33.2 % (32.0-36.0) 12/10/20 05:50 RDW 13.4 % (11.7-14.6) 12/10/20 05:50 Plt Count 174 10^3/uL (130-400) 12/10/20 05:50 MPV 10.2 fL (8.0-11.0) 12/10/20 05:50 COVID-19 Source Nasal/Nares 12/10/20 05:56 SARS-CoV-2 (PCR) Negative (Negative) 12/10/20 05:56 Vital Signs Reviewed: Yes Objective Narrative Objective Narrative: Maternal tachycardia improving with IV hydration Pt has not voided since arriving in unit, will place maldonado shortly Epidural placed with good effect Normotensive, monitoring temp Category 1 tracing since improved variability with IV hydration Contractions at every 5 minutes Pt's FOB and her mother (vaccinated) constitute her support team Subjective Interval history since last seen: More comfortable after epidural, still feels hip and back pain with contractions as well as rectal and pelvic pressure when there is a contraction but it is more bearable. Feeling very sleepy, states she has not slept in 2 nights. Results Abnormal Lab Findings: Abnormal Labs 12/10/20 05:50 WBC 12.28 H RBC 3.42 L Hgb 9.9 L Hct 29.8 L
[2020-12-10] MEDS: Acetaminophen 500 MG TAB 1000 MG PO ×2 (07:19→13:39)
[2020-12-10] MEDS: Lactated Ringers 1,000 ML 125 ML IV ×3 (08:09→17:15)
--- NOTE | 2020-12-10 08:23 | W.PM.OBNL1 ---
Date of service: 12/10/20 Time of Service: 08:11 Pelvic Exam Dilation: 3 Effacement (%): 100 station: 0 Cervix Position: mid Consistency: soft Vaginal Exam Presentation: Cephalic Pooling: Positive Nitrazine: Positive Contractions Monitor Mode: External Contraction Frequency(min): q5-8 Contraction Duration(sec): 60-70 Intensity: Moderate Fetus A Monitor: External (US) Heart Rate Baseline: 145 Variability: Moderate (6-25 BPM) (interspersed with periods of minimal variability) Categories: Category I Accelerations: Present Decelerations: Early Amniotic Membrane Status: Ruptured Rupture Method: Spontaneous Amniotic Fluid: Clear Date of Membrane Rupture: 12/10/20 Time of Membrane Rupture: 08:11 Assessment and Plan Assessment and plan (1) Spontaneous onset of labor: Status: Acute Assessment and plan: A: SROM clear fluid, 3 cm dilation, descent to 0 station pt comfortable with epidural category 1 tracing overall, contractions q5-8 minutes ketonuria noted on urine dip P: Start pitocin augmentation PO clear liquids. encourage juice, popsicles Anticipate Objective Vital Signs Reviewed: Yes Results Hemoglobin/Hematocrit: Hgb 9.9 g/dL (11.2-15.7) L 12/10/20 05:50 Hct 29.8 % (36.0-46.0) L 12/10/20 05:50 Abnormal Lab Findings: Abnormal Labs 12/10/20 05:50 WBC 12.28 H RBC 3.42 L Hgb 9.9 L Hct 29.8 L
[2020-12-10] MEDS: Oxytocin/Normal Saline 30 UNIT/500 ML BAG 2 UNITS IV (08:48)
--- NOTE | 2020-12-10 10:28 | W.PM.OBNL1 ---
Date of service: 12/10/20 Time of Service: 10:28 Pelvic Exam Dilation: 5 Effacement (%): 100 station: 0 Position: LOT Cervix Position: anterior Consistency: soft Assessment and Plan Assessment and plan (1) Spontaneous onset of labor: Status: Acute Assessment and plan: A: Pitocin augmentation @ 4 mu/min Occasional variable, minimal variability, question of a late decel Cvx exam @ 5/100%, 0 station Pt comfortable P: Internal monitors requested by nursing Consent discussed with pt IUPC and FSE placed without difficulty Objective Abnormal lab results 12/10/20 Range/Units 05:50 WBC 12.28 H (4.4-10.8) 10^3/uL RBC 3.42 L (3.93-5.22) 10^6/uL Hgb 9.9 L (11.2-15.7) g/dL Hct 29.8 L (36.0-46.0) % Temp Pulse Resp BP Pulse Ox 98.4 F 117 H 18 103/56 L 96 12/10/20 09:31 12/10/20 09:56 12/10/20 09:31 12/10/20 09:35 12/10/20 09:56 Laboratory Results WBC 12.28 10^3/uL (4.4-10.8) H 12/10/20 05:50 RBC 3.42 10^6/uL (3.93-5.22) L 12/10/20 05:50 Hgb 9.9 g/dL (11.2-15.7) L 12/10/20 05:50 Hct 29.8 % (36.0-46.0) L 12/10/20 05:50 MCV 87.1 fL (80-95) 12/10/20 05:50 MCH 28.9 pg (27.0-33.0) 12/10/20 05:50 MCHC 33.2 % (32.0-36.0) 12/10/20 05:50 RDW 13.4 % (11.7-14.6) 12/10/20 05:50 Plt Count 174 10^3/uL (130-400) 12/10/20 05:50 MPV 10.2 fL (8.0-11.0) 12/10/20 05:50 COVID-19 Source Nasal/Nares 12/10/20 05:56 SARS-CoV-2 (PCR) Negative (Negative) 12/10/20 05:56 Patient ABO/Rh B Positive 12/10/20 05:50 Antibody Screen NEGATIVE 12/10/20 05:50 Results Hemoglobin/Hematocrit: Hgb 9.9 g/dL (11.2-15.7) L 12/10/20 05:50 Hct 29.8 % (36.0-46.0) L 12/10/20 05:50 Abnormal Lab Findings: Abnormal Labs 12/10/20 05:50 WBC 12.28 H RBC 3.42 L Hgb 9.9 L Hct 29.8 L
--- NOTE | 2020-12-10 14:06 | W.OBDELIVERY ---
Date of service: 12/10/20 Time of Service: 14:06 OB Labor/ Delivery Information Baby A Delivery Delivery Method: Spontaneaous Presentation: Cephalic Cephalic Position: Vertex Vertex Position: Left Occipital Anterior Breech Position: N/A Cord Description-Baby A: 3 Vessels and Nuchal Cord (and left nuchal hand) Cord Description Comment: nuchal cord was loose and easily reduced over head Amniotic Fluid: Meconium Estimated Blood Loss: 250 Delivery Outcome: Liveborn Transferred: Remains with Mother Note: Pt maintained adequate pain relief with epidural, internal monitors were placed at 1000 to more closely assess FHT status, at 1120 the tracing became more consistently category 2 with variable decels periodic and not recurrent, minimal variability interspersed with periods of moderate variability, baseline remained stable at 145 and scalp stim with cervical exam was reactive. Pitocin was held at 6 mu/min with cervical change increasing to anterior lip by 1235. Dr. Cecil pierre, aware of tracing and good progress in labor. Maternal pushing efforts were begun after 2nd stage huddle was completed, lip manually reduced over a single contraction @ 1244, meconium stained fluid noted at this time. Category 2 tracing persisted through 2nd stage, maldonado removed, excellent maternal efforts resulted in over intact perineum a vigorous female infant @ 1315, nuchal cord was reduced over head and nuchal hand noted as shoulders delivered without difficulty. Bulb sx of mouth and nose of meconium fluids, terminal meconium noted on delivery field. Infant to mother's arms for further drying/suction, pitocin IV bolus begun, cord was clamped and cut by FOB at 8 minutes, cord blood collected, Andrade placenta intact with 3VC. Left labial laceration repaired with 4.0 Vicryl, shorter right labial laceration approximated with one stitch. Fundus firm, minimal rubra, excellent family bonding observed. Apgars 9/10, weight 3325 gms. Providers Nurse Director Data Architecture: Eva Cisse Corporate Administrative Assistant: Lynn Frank Nurse: Sanjuana Campos Nurse: Dede Basilio Labor/Delivery Information Number of Babies in Womb: 1 Steroids Given: None Reason Steroids Not Administered: N/A Group Beta Strep: Negative Antibiotics Administered: No Rubella Status: Immune Blood Type: B+ Varicella Immunity: Immune Born En Route: No Shoulder Dystocia: No Stages of Labor Onset of Labor Date: 12/09/20 Onset of Labor Time: 13:30 Complete Dilatation Date: 12/10/20 Complete Dilatation Time: 12:45 Labor - Stage 1 Duration: 24 hours and 0 minutes ROM Baby A: 12/10/20 ROM Baby A: 08:11 ROM Total Time- Baby A: [id number] Delivery Date-Baby A: 12/10/20 Delivery Time-Baby A: 13:15 Labor Stage 2 Duration: 30 minutes Placenta Delivery Date-Baby A: 12/10/20 Placenta Delivery Time-Baby A: 13:26 Labor-Stage 3 Duration: 11 minutes Total Length of Labor-Baby A: 23 hours and 45 minutes Placenta Status: Delivered Baby A Infant Gender: Female Gestational Status: Early Term (37-38.6 wks) Gestational Age in Weeks/Days: 38 Weeks and 6 Days weight: 7 lb 5.286 oz Weight Comment: 3325 gms Score-1 Minute Interval(Baby A) Heart Rate-1 minute: 100 BPM or Greater Respiratory Effort- 1 minute: Spontaneous/Strong Cry Muscle Tone-1 minute: Active Movement Reflex Response-1 minute: Prompt Response Color-1 minute: Bluish Hands or Feet Total Score-1 minute: 9 Score-5 Minute Interval(Baby A) Heart Rate- 5 minute: 100 BPM or Greater Respiratory Effort-5 minute: Spontaneous/Strong Cry Muscle Tone-5 minute: Active Movement Reflex Response-5 minute: Prompt Response Color-5 minute: Lookingglass/No Cyanosis Total Score- 5 minute: 10 Procedure Procedures: Cord Blood Collection Interventions Repair of Laceration Type: Periurethral (labial) , Laceration Extension: N/A . Sponge Count Correct: Yes , Sharp Count Correct: Yes . Laceration Repair Note: left labial lac repaired with 4.0 Vicryl, short right labial lac edges approximated with 1 stitch.
[2020-12-10] MEDS: Calcium Carbonate *TUMS* 500 MG CHEW 1000 MG PO (14:33)
[2020-12-10] MEDS: Ibuprofen 600 MG TAB PO (15:35)
[2020-12-10] MEDS: Dibucaine 1% 28 GM TUBE TP (17:18)
[2020-12-10] MEDS: Hamamelis Leaf/Glycerin 100 EACH BOX PR (17:18)
[2020-12-10 20:18] LABS: HCT 25.5 % (36.0-46.0); HGB 8.5 g/dL (11.2-15.7); MCHC 33.3 % (32.0-36.0); MPV 10.1 fL (8.0-11.0); Platelet Count 162 10^3/uL (130-400); RBC 2.93 10^6/uL (3.93-5.22); RDW 13.5 % (11.7-14.6); RDW-SD 42.5 fL; WBC 19.04 10^3/uL (4.4-10.8)
[2020-12-11 00:05] VITALS: BP 105/72; RESP 18; TEMP 36.7; O2SAT 97
[2020-12-11 02:00] VITALS: BP 127/79; PULSE 80; RESP 16; TEMP 36.6; O2SAT 97
--- NOTE | 2020-12-11 06:52 | OBPPV_ITS ---
Date of service: 12/11/20 Time of Service: 12:26 Assessment and Plan Assessment and plan (1) Term delivered: Status: Acute Assessment and plan: A: PPD#1, nml recovery Improper latch causing nipple injury anemia with Hgb 8.8 this morning, asymptomatic Maternal tachycardia in labor now resolved, pulse 80's P: LC consult today Will industrial relations counselor pt to start iron supplement after first BM Pt undecided about BCM Satisfied with experience Plan for discharge tomorrow (2) Anemia: Status: Chronic Qualifiers: Anemia type: iron deficiency Iron deficiency anemia type: inadequate dietary iron intake Qualified Code(s): D50.8 - Other iron deficiency anemias Subjective Subjective Patient comments: No complaints, Pain well controlled, Tolerating diet and Flatus present [place] baby status: Doing well, Nursing well, Rooming in and Strong Bonding Observed feeding status: Exclusively breast feeding Exam Physical Exam Vital signs: Temp Pulse Resp BP Pulse Ox 97.9 F 80 16 127/79 97 12/11/20 02:00 12/11/20 02:00 12/11/20 02:00 12/11/20 02:00 12/11/20 02:00 Vital Signs Reviewed: Yes Constitutional Constitutional: no acute distress HEENT Exam HEENT Exam: Normal Neck Exam Neck Exam: Normal Breast Exam Bilateral: Breast Exam: Normal and Soft Nipple Exam: Normal, Bruised and Other (cracking and some bleeding reported by pt, using gel pads and lanolin) Respiratory Exam Respiratory Exam: Normal Cardiovascular Exam Cardiovascular Exam: Normal Abdominal Exam Abdomen: Other (soft, nontender) Fundal Exam Fundus: Below Umbilicus and Firm Rectal Exam Rectal Exam: Not Done Exam Perineum: Intact, Normal and Repair Intact Extremities Exam Extremity Exam: Normal and Full ROM Back/Spine/Pelvis Exam Back Exam: Normal Skin Exam Skin Exam: Normal Neurological Exam Neurological Exam: Normal Psychiatric Exam Psychiatric Exam: Normal Results Hemoglobin/Hematocrit: Hgb 8.5 g/dL (11.2-15.7) L 12/10/20 20:10 Hct 25.5 % (36.0-46.0) L 12/10/20 20:10 Abnormal Lab Findings: Abnormal Labs 12/10/20 12/10/20 05:50 20:10 WBC 12.28 H 19.04 H D RBC 3.42 L 2.93 L Hgb 9.9 L 8.5 L Hct 29.8 L 25.5 L
[2020-12-11 08:27] VITALS: PULSE 83; RESP 16; TEMP 36.5
[2020-12-11 10:06] LABS: Abs Immature Grans 0.22 10^3/uL (0.0-0.06); Absolute Eosinophil Count 0.08 10^3/uL (0.0-0.7); Absolute Monocyte Count 1.09 10^3/uL (0.1-0.8); Basophils % 0.4; Eosinophils % 0.5; HCT 26.1 % (36.0-46.0); HGB 8.8 g/dL (11.2-15.7); Immature Grans % 1.3; Lymphocytes % 9.2; MCH 29.5 pg (27.0-33.0); MCHC 33.7 % (32.0-36.0); MCV 87.6 fL (80-95); MPV 9.5 fL (8.0-11.0); Monocytes % 6.5; Neutrophils % 82.1; Nucleated RBC 0 %; Platelet Count 153 10^3/uL (130-400); RBC 2.98 10^6/uL (3.93-5.22); RDW 13.7 % (11.7-14.6); RDW-SD 43.8 fL
[2020-12-11 10:10] LABS: Absolute Basophil Count 0.07 10^3/uL (0.0-0.2); Absolute Lymphocyte Count 1.55 10^3/uL (1.2-3.4); Absolute Neutrophil Count 13.79 10^3/uL (1.2-6.7)
[2020-12-11] MEDS: Acetaminophen 325 MG TAB 650 MG PO (14:26)
[2020-12-11] MEDS: Ibuprofen 600 MG TAB PO (14:27)
[2020-12-11 16:35] VITALS: BP 104/62; PULSE 91; RESP 16; TEMP 36.5
[2020-12-11 20:30] VITALS: BP 105/69; PULSE 61; RESP 18; TEMP 36.6
--- NOTE | 2020-12-12 09:29 | OBPPV_ITS ---
Date of service: 12/12/20 Time of Service: 09:29 Assessment and Plan Assessment and plan (1) Term delivered: Status: Acute Assessment and plan: A: PPD#2, nml recovery pt's informed choice is to pump milk and bottle feed P: Pt to start iron supplement after first BM Remains undecided about BCM Discharge to home today Written instructions reviewed and given to pt F/up scheduled for 2 & 6 wks (2) Anemia: Status: Chronic Qualifiers: Anemia type: iron deficiency Iron deficiency anemia type: inadequate dietary iron intake Qualified Code(s): D50.8 - Other iron deficiency anemias Subjective Subjective Patient comments: No complaints, Pain well controlled, Tolerating diet and Flatus present [place] baby status: Doing well, Bottle feeding well, Rooming in and Strong Bonding Observed [place] feeding status: Breast and formula feeding and Pumping and bottle feeding Narrative: Pt feels her nipples are sore, cracked, does not want to put baby to breast anymore but wants to pump milk to feed via bottle as well as supplement with formula. Declines cup or pipette feeding. Exam Physical Exam Vital signs: Temp Pulse Resp BP Pulse Ox 97.9 F 61 18 105/69 97 12/11/20 20:30 12/11/20 20:30 12/11/20 20:30 12/11/20 20:30 12/11/20 02:00 Vital Signs Reviewed: Yes Constitutional Constitutional: no acute distress HEENT Exam HEENT Exam: Normal Neck Exam Neck Exam: Normal Breast Exam Bilateral: Breast Exam: Normal and Soft Respiratory Exam Respiratory Exam: Normal Cardiovascular Exam Cardiovascular Exam: Normal Abdominal Exam Abdomen: Other (soft, nontender) Fundal Exam Fundus: Below Umbilicus and Firm Rectal Exam Rectal Exam: Not Done Exam Perineum: Intact, Normal and Repair Intact Extremities Exam Extremity Exam: Normal and Full ROM Back/Spine/Pelvis Exam Back Exam: Normal Skin Exam Skin Exam: Normal Neurological Exam Neurological Exam: Normal Psychiatric Exam Psychiatric Exam: Normal Results Abnormal Lab Findings: Abnormal Labs 12/10/20 12/10/20 12/11/20 05:50 20:10 10:00 WBC 12.28 H 19.04 H D 16.80 H RBC 3.42 L 2.93 L 2.98 L Hgb 9.9 L 8.5 L 8.8 L Hct 29.8 L 25.5 L 26.1 L Absolute Neutrophils 13.79 H Absolute Monocytes 1.09 H
--- NOTE | 2020-12-12 09:42 | W.PM.OBDISCH ---
Date of service: 12/12/20 Time of Service: 09:42 DS: Diagnosis Discharge Diagnosis (1) Term delivered: Status: Acute (2) Anemia: Status: Chronic Discharge Plan Disposition Patient Disposition: HOME Condition: Good Discharge Details Reason For Visit: term rule out labor Admit Date/Time: 12/10/20 05:45 Admit Provider: Eva Cisse Attending Provider: Eva Cisse Primary Care Provider: Nidia Howard Hospital Course Hospital Course: with epidural anesthesia, nml course Home Meds and New Rx's Prescriptions: No Action gummy vitamins See Rx Instructions .ROUTE .COMPLEX RF: 0 Colace Clear 50 mg capsule 50 mg PO BID Qty: 60 RF: 3 ferrous sulfate 325 mg (65 mg iron) tablet 325 mg PO DAILY Qty: 30 RF: 3 Discharge Instructions Additional Instructions: Please keep your 2 and 6 week appointments with your assistant pastry chef. Feel free to call for any questions or concerns at any time. Stand Alone Forms: BC Instructions, NB [place] Instructions, BC Post Vaginal Deliver Activity:: Activity as Tolerated Equipment/Supplies:: No Equipment Needed Diet:: Normal Diet Discharge Orders Discharge Orders: Discharge Order (Routine); Ordered 12/12/20 Ordered By: Eva Cisse OB:DS Summary Summary Vaginal Delivery Method: Spontaneaous Episiotomy Description: None Laceration Description: Periurethral (labial) Laceration Extension: N/A Contraception Discussed Contraception Discussed: Yes Contraceptive Plan: Undecided, [place] Infant Gender-Baby A: Female weight: 7 lb 5.286 oz Status at Discharge Functional status at discharge: independent ambulation Overall status at discharge: patient is progressing back to baseline Mental Status: mental status grossly normal Speech and Movement: speech and movement normal and speech clear Mood: congruent mood Affect: normal affect Exam Physical Exam Vital signs: Temp Pulse Resp BP Pulse Ox 97.9 F 61 18 105/69 97 12/11/20 20:30 12/11/20 20:30 12/11/20 20:30 12/11/20 20:30 12/11/20 02:00 Constitutional Constitutional: no acute distress HEENT Exam HEENT Exam: Normal Neck Exam Neck Exam: Normal Breast Exam Bilateral: Breast Exam: Normal and Soft Respiratory Exam Respiratory Exam: Normal Cardiovascular Exam Cardiovascular Exam: Normal Abdominal Exam Abdomen: Other (soft, nontender) Fundal Exam Fundus: Below Umbilicus and Firm Rectal Exam Rectal Exam: Not Done Exam Perineum: Intact, Normal and Repair Intact Extremities Exam Extremity Exam: Normal and Full ROM Back/Spine/Pelvis Exam Back Exam: Normal Skin Exam Skin Exam: Normal Neurological Exam Neurological Exam: Normal Psychiatric Exam Psychiatric Exam: Normal [facility] Medical History (Updated 12/11/20 @ 15:29 by Eva Cisse) Abdominal cramping Anemia affecting in third trimester Asthma outgrown BV (bacterial vaginosis) 04/07/15. Rx with Metronidazole. 06/30/15 Rx with PO Metronidazole Depression Depression (11/24/11) chronic depressed mood Genitourinary Chlamydia infection 12/14,02/13 and 05/15 Heart murmur (10/27/11) innocent Idiopathic scoliosis (10/27/11) Missed menses Pain, dental Positive test Previous recurrent miscarriages affecting , antepartum Recurrent acute otitis media outgrown Spontaneous onset of labor Tobacco abuse Surgical History Dilation and curettage (06/19/13) for embryonic demise at 12w EGA. Status post dilation and curettage 08/15/18; Missed AB at ~8 weeks Family History Mother Anxiety Depression Hypertension Father Anxiety Depression Hypertension Grandmother Mental disorder anxiety/depression Sister Asthma COPD (chronic obstructive pulmonary disease) Social History Smoking/Tobacco Use Status: Current every day Tobacco Type: cigarettes Smoking risk assessment performed?: Yes Alcohol Intake: former Drug use: Never Substance use type: does not use Details: 5-6 cigarettes per day Adopted: No Caregiver/Support person: No Foster care: No Do you need help understanding health information?: Often 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 Date GA/Weeks # Outcome Route Wgt Sex Labor Lgth Anesthesia Location Prov Complic 04/12/13 Unsuccessful 08/15/18 8 Unsuccessful 05/29/19 10 No Unsuccessful Delivery Date: 04/12/13 No notes to display Delivery Date: 08/15/18 Missed AB at ~ 8 weeks; D&C 08/15/18; Kamla Maharaj Delivery Date: 05/29/19 Missed AB at 10.2 weeks; Kamla Farias DS: Data Vitals/I&O Vitals and I&O: Vital Signs Temperature 97.9 F 12/11/20 20:30 Temperature Source Oral 12/10/20 07:35 Pulse 61 12/11/20 20:30 Pulse Rhythm Regular 12/11/20 20:30 Respiratory Rate 18 12/11/20 20:30 Respiratory Depth Normal 12/11/20 08:58 Blood Pressure 105/69 12/11/20 20:30 Blood Pressure Mean 81 12/11/20 20:30 Pulse Oximetry 97 12/11/20 02:00 Oxygen Delivery Method Room Air 12/10/20 07:35 Oxygen Flow Rate 0 12/10/20 07:35 Pain Level 5 12/11/20 14:27 Comment 12/10/20 15:15 Data Completed and Pending Labs on day of discharge: Labs from last 24 hours 12/11/20 10:00 WBC 16.80 H RBC 2.98 L Hgb 8.8 L Hct 26.1 L MCV 87.6 MCH 29.5 MCHC 33.7 RDW 13.7 Plt Count 153 MPV 9.5 Immature Gran % 1.3 Neutrophils % 82.1 Lymphocytes % 9.2 Monocytes % 6.5 Eosinophils % 0.5 Basophils % 0.4 Nucleated RBC % 0 Absolute Neutrophils 13.79 H Absolute Lymphocytes 1.55 Absolute Monocytes 1.09 H Absolute Eosinophils 0.08 Absolute Basophils 0.07
[2020-12-12 09:45] VITALS: BP 117/73; PULSE 72; RESP 16; TEMP 36.8; O2SAT 99
[2020-12-12] MEDS: Acetaminophen 325 MG TAB 650 MG PO (10:01)
[2020-12-12] MEDS: Ibuprofen 600 MG TAB PO (10:01)
== END 2020-12-12 13:20 | disposition home or self-care (01) | DRG 807 ==
PROVIDERS: Admitting Provider Advanced Practice Midwife; PCP Nurse Practitioner; Visit Provider Advanced Practice Midwife
DX: O99.334 Smoking (tobacco) complicating childbirth (principal); Z37.0 Single live birth; Z3A.39 39 weeks gestation of pregnancy; F17.210 Nicotine dependence, cigarettes, uncomplicated; O99.324 Drug use complicating childbirth; F12.90 Cannabis use, unspecified, uncomplicated; O99.344 Other mental disorders complicating childbirth; F32.A Depression, unspecified; O70.0 First degree perineal laceration during delivery; O69.81X0 Labor and delivery complicated by cord around neck, without compression, not applicable or unspecified; O77.0 Labor and delivery complicated by meconium in amniotic fluid; O99.02 Anemia complicating childbirth; D50.8 Other iron deficiency anemias
CPT/HCPCS: 36415; 85027; 86850; 86900; 86901; 87635; 85025

== ENCOUNTER 2021-04-04 15:42 | Emergency (ER) | payer MEDICAID, SELFPAY ==
[2021-04-04 15:47] VITALS: BP 109/63; PULSE 75; RESP 16; TEMP 36.7; O2SAT 100
== END 2021-04-04 16:40 ==
PROVIDERS: Emergency Provider Physician Assistant; PCP Nurse Practitioner
DX: Z53.21 Procedure and treatment not carried out due to patient leaving prior to being seen by health care provider (principal)

== ENCOUNTER 2021-06-16 14:02 | Outpatient (CLI) | payer MEDICAID, SELFPAY | END 2021-06-16 14:03 | disposition home or self-care (01) | LOC: LBO 14:05 | PROVIDERS: PCP Nurse Practitioner; Visit Provider Nurse Practitioner Family ==

== ENCOUNTER 2021-07-19 03:29 | Outpatient (CLI) | payer MEDICAID, SELFPAY | END 2021-07-19 03:30 | disposition home or self-care (01) | LOC: LBO 03:30 | PROVIDERS: PCP Nurse Practitioner; Visit Provider Radiology Radiation Oncology ==

== ENCOUNTER 2021-09-09 03:57 | Outpatient (CLI) | payer MEDICAID, SELFPAY ==
[2021-09-09 14:09] LABS: Kit/Specimen SENT
[2021-09-09 14:22] LABS: Abs Immature Grans 0.05 10^3/uL (0.0-0.06); Absolute Basophil Count 0.03 10^3/uL (0.0-0.2); Absolute Eosinophil Count 0.07 10^3/uL (0.0-0.7); Absolute Lymphocyte Count 1.45 10^3/uL (1.2-3.4); Absolute Monocyte Count 0.43 10^3/uL (0.1-0.8); Basophils % 0.5; Eosinophils % 1.2; HCT 33.1 % (36.0-46.0); HGB 11.2 g/dL (11.2-15.7); Immature Grans % 0.8; MCH 30.9 pg (27.0-33.0); MCHC 33.8 % (32.0-36.0); MCV 91 fL (80-95); MPV 9.9 fL (8.0-11.0); Monocytes % 7.1; Neutrophils % 66.4; Platelet Count 227 10^3/uL (130-400); RBC 3.63 10^6/uL (3.93-5.22); RDW 13.1 % (11.7-14.6); WBC 6.03 10^3/uL (4.4-10.8)
[2021-09-10 09:41] LABS: Hepatitis B Surface Ag Negative (Negative)
[2021-09-10 10:20] LABS: Hepatitis C Ab w Rflx HCV PCR Negative (Negative)
[2021-09-10 10:29] LABS: HIV-1/2 Ag & Ab Screen Negative (Negative)
[2021-09-10 10:48] LABS: Varicella IgG Antibody Positive (See Note)
[2021-09-10 10:53] LABS: Rubella IgG Ab (UVM) Positive (See Note)
[2021-09-11 14:01] LABS: Syphilis IgG w/Reflex Nonreactive (Nonreactive)
== END 2021-09-09 03:58 | disposition home or self-care (01) ==
LOC: LBO 03:57
PROVIDERS: PCP Nurse Practitioner; Visit Provider Advanced Practice Midwife
DX: Z34.92 Encounter for supervision of normal pregnancy, unspecified, second trimester (principal); Z36.89 Encounter for other specified antenatal screening; Z3A.20 20 weeks gestation of pregnancy
CPT/HCPCS: 36415; 86787; 86803; 86850; 86900; 86901; 87340; 87389; 85025; 86762; 86780; 87480; 87510; 87660

== ENCOUNTER 2021-09-09 19:15 | Outpatient (REF) | payer MEDICAID, SELFPAY ==
[2021-09-09 19:02] LABS: *AMPHETAMINES SCREEN URINE Negative (Negative); *BARBITURATES SCREEN URINE Negative (Negative); *BENZODIAZEPINES SCREEN URINE Negative (Negative); Cannabinoids THC Positive (Negative); Cocaine Screen,Urine Negative (Negative); METHADONE URINE SCREEN Negative (Negative); OPIATES URINE SCREEN Negative (Negative)
[2021-09-09 19:09] LABS: Tricyclic Antidepressants Negative (Negative)
[2021-09-11 13:40] LABS: Chlamydia Result Negative (Negative); GC Result Negative (Negative)
[2021-09-16 11:07] LABS: Buprenorphine Negative ng/mL (Cutoff: 5.0); Norbuprenorphine Negative ng/mL (Cutoff: 2.5)
== END 2021-09-09 19:16 | disposition home or self-care (01) ==
LOC: LBN 19:15
PROVIDERS: PCP Nurse Practitioner; Visit Provider Advanced Practice Midwife
DX: O26.892 Other specified pregnancy related conditions, second trimester (principal); N89.8 Other specified noninflammatory disorders of vagina; Z3A.20 20 weeks gestation of pregnancy; F12.90 Cannabis use, unspecified, uncomplicated; F41.8 Other specified anxiety disorders
CPT/HCPCS: 80307; 87491; 87591; 87086; 87480; 87510; 87660

== ENCOUNTER → 2021-09-22 00:47 | Outpatient (CLI) | payer MEDICAID, SELFPAY ==
--- NOTE | 2021-09-22 08:00 | DI.US_ITS ---
Exam(s) US OB 2-3 TRIMESTER EXAM: US OB 2-3 TRIMESTER CLINICAL HISTORY: anatomy, late entry to care,Z34.92. TECHNIQUE: Transabdominal obstetrical ultrasound performed. COMPARISON: No exams were available for comparison FINDINGS: Number of fetuses: One. position: Transverse Placental grade: 1 Placental location: Posterior. No evidence of previa. BIOMETRIC DATA: BPD: 54mm = 22+2 weeks HC: 203mm = 22+3 weeks AC: 187mm = 23+3 weeks FL: 39mm = 22+5 weeks Cisterna Magna: 3.8 mm Cerebellum: 1.9 cm EFW: 552 grms 72% Composite Age: 22+5 weeks EDC by US: 21 January 2022 Heart Rate: CWGN-VS-ETSUC Amniotic fluid : Amount of fluid is within normal limits. ANATOMICAL SURVEY: Four-chambered heart: Unremarkable. LVOT: Unremarkable. RVOT: Unremarkable. Left-sided stomach: Unremarkable. urinary bladder: Unremarkable. Bilateral kidneys: Unremarkable. Three-vessel cord: Unremarkable. Cord insertion: Unremarkable. Umbilical artery velocity: Unremarkable. Posterior fossa:Unremarkable. ventricles: Unremarkable. nose: Unremarkable. lips: Unremarkable. palate: Unremarkable. spine: Unremarkable. Two arms and two legs: Unremarkable. IMPRESSION: 1. Single live intrauterine gestation in transverse position, measuring 22+ 5 weeks gestational age. 2. Normal anatomic survey. DATA REPOSITORY:
== END ==
PROVIDERS: PCP Nurse Practitioner; Visit Provider Advanced Practice Midwife
DX: Z34.92 Encounter for supervision of normal pregnancy, unspecified, second trimester (principal); Z3A.22 22 weeks gestation of pregnancy
CPT/HCPCS: 76805

== ENCOUNTER 2021-10-06 20:37 | Emergency (ER) | payer MEDICAID, SELFPAY ==
[2021-10-06 20:45] VITALS: BP 97/58; PULSE 86; RESP 16; TEMP 36.7; O2SAT 98
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
== END 2021-10-06 22:35 | disposition home or self-care (01) ==
PROVIDERS: Emergency Provider Physician Assistant; PCP Nurse Practitioner
DX: O26.892 Other specified pregnancy related conditions, second trimester (principal); R10.9 Unspecified abdominal pain; O99.512 Diseases of the respiratory system complicating pregnancy, second trimester; J45.909 Unspecified asthma, uncomplicated; O09.292 Supervision of pregnancy with other poor reproductive or obstetric history, second trimester; Z87.891 Personal history of nicotine dependence; Z3A.25 25 weeks gestation of pregnancy
CPT/HCPCS: 99284; 99282

== ENCOUNTER 2021-10-19 18:12 | Outpatient (REF) | payer MEDICAID, SELFPAY | END 2021-10-19 18:13 | disposition home or self-care (01) | LOC: LBN 18:12 | PROVIDERS: PCP Nurse Practitioner; Visit Provider Advanced Practice Midwife | DX: O26.892 Other specified pregnancy related conditions, second trimester (principal); N89.8 Other specified noninflammatory disorders of vagina; Z3A.26 26 weeks gestation of pregnancy | CPT/HCPCS: 87480; 87510; 87660 ==

== ENCOUNTER 2021-12-09 02:21 | Outpatient (CLI) | payer MEDICAID, SELFPAY ==
[2021-12-09 12:48] LABS: HCT 31.9 % (36.0-46.0); HGB 10.9 g/dL (11.2-15.7); MCH 30.4 pg (27.0-33.0); MCHC 34.2 % (32.0-36.0); MCV 89 fL (80-95); MPV 10.1 fL (8.0-11.0); Platelet Count 211 10^3/uL (130-400); RBC 3.59 10^6/uL (3.93-5.22); RDW 13.2 % (11.7-14.6); WBC 9.97 10^3/uL (4.4-10.8)
[2021-12-09 13:35] LABS: Hemoglobin A1C 4.9 % (<5.7)
== END 2021-12-09 02:22 | disposition home or self-care (01) ==
LOC: LBO 02:21
PROVIDERS: Advanced Practice Midwife; PCP Nurse Practitioner; Visit Provider Advanced Practice Midwife
DX: Z34.93 Encounter for supervision of normal pregnancy, unspecified, third trimester (principal)
CPT/HCPCS: 36415; 85027; 83036

== ENCOUNTER 2021-12-15 02:13 | Outpatient (CLI) | payer MEDICAID, SELFPAY ==
[2021-12-15 11:09] LABS: Glucose,1 Hr (Glucola) 97 mg/dL (80-140)
== END 2021-12-15 02:14 | disposition home or self-care (01) ==
LOC: LBO 02:13
PROVIDERS: PCP Nurse Practitioner; Visit Provider Advanced Practice Midwife
DX: Z34.93 Encounter for supervision of normal pregnancy, unspecified, third trimester (principal); Z3A.33 33 weeks gestation of pregnancy
CPT/HCPCS: 36415; 82950

== ENCOUNTER → 2021-12-20 01:56 | Outpatient (CLI) | payer MEDICAID, SELFPAY ==
--- NOTE | 2021-12-20 06:45 | DI.US_ITS ---
Exam(s) US OB SURJIT WEIGHT EXAM: US OB SURJIT WEIGHT CLINICAL HISTORY: interval growth O98.512 U07.1 COVID 19. TECHNIQUE: Transabdominal obstetrical ultrasound performed. COMPARISON: US US OB 2-3 TRIMESTER from 09/22/2021 FINDINGS: Number of fetuses: 1 position: CEPHALIC Placental location:There is a grade 2 posterior placenta. No evidence of previa. BIOMETRIC DATA: BPD: 8.76cm, 35weeks 3days HC: 31.28cm,35weeks AC: 31.06cm,35weeks FL: 6.68cm,34weeks 3days EFW:2,536.02g,5lb 10.12oz,39.3% Composite Age:35weeks TALON:01/24/2022 Heart Rate: 157bpm Amniotic fluid index:12.68cm. Visually, amount of fluid is within normal limits. IMPRESSION: 1. Single live intrauterine gestation as above. Estimated gestational age is consistent with the prio r measuring from 09/22/2021. 2. Estimated weight is 2536gms. This is the 39th percentile. 3. Amniotic fluid index is 12.7 cm. Visually within normal limits. DATA REPOSITORY:
== END ==
PROVIDERS: PCP Nurse Practitioner; Visit Provider Advanced Practice Midwife
DX: O98.513 Other viral diseases complicating pregnancy, third trimester (principal); U07.1 COVID-19
CPT/HCPCS: 76816

== ENCOUNTER 2022-01-13 18:37 | Outpatient (REF) | payer MEDICAID, SELFPAY | END 2022-01-13 18:38 | disposition home or self-care (01) | LOC: LBN 18:37 | PROVIDERS: PCP Nurse Practitioner; Visit Provider Advanced Practice Midwife | DX: Z34.93 Encounter for supervision of normal pregnancy, unspecified, third trimester (principal) | CPT/HCPCS: 87081 ==

== ENCOUNTER 2022-01-15 15:24 | Outpatient (CLI) | payer MEDICAID, SELFPAY ==
[2022-01-15 15:57] VITALS: BP 106/64; PULSE 93; TEMP 37.1
--- NOTE | 2022-01-15 16:52 | W.OBNST ---
Date of service: 01/15/22 Time of Service: 16:52 NST Evaluation Reason for NST Reasons for Nonstress Test: OTHER, SEE COMMENT Reason for NST Other: Rule out labor Gestational Age Gestational Age in Weeks and Days: 38 Weeks and 6Days Test and Monitor Explained Test/Monitor Explained: Test Explained, Monitor Explained and Patient Verbalized Understanding Vital Signs Blood Pressure: 106/64 Pulse: 93 Temperature: 98.8 F NST Information Time on Monitor: 15:53 Date off Monitor: 01/15/22 Time off Monitor: 16:25 NST Interventions: None Contraction Frequency: 3-19 mins, x 2 NST Evaluation Patient States Movement: Present FHR Baseline: 115 Variability: Moderate 6-25 bpm Accelerations: 15x15 Decelerations: None NST Results: Reactive Note NST Note Note: SSE performed, intact membranes confirmed, neg pooling, neg nit, neg ferns, Recent VPS was neg x3 Cvx uncahnged from exam in iffice 2 days ago. Pt comfortable with going home NST Reviewed and Verified by: Betsy Cisse
[2022-01-15 16:53] VITALS: BP 106/64; PULSE 93; TEMP 37.1
== END 2022-01-15 16:40 | disposition home or self-care (01) ==
LOC: BCD 15:24 → OBS 16:04
PROVIDERS: PCP Nurse Practitioner; Visit Provider Advanced Practice Midwife
DX: O47.1 False labor at or after 37 completed weeks of gestation (principal); Z3A.38 38 weeks gestation of pregnancy
CPT/HCPCS: 59025

== ENCOUNTER 2022-01-16 14:32 | Inpatient (IN) | payer MEDICAID, SELFPAY ==
[2022-01-16] VITALS (17 sets, daily range): BP systolic 102–178; BP diastolic 51–112; PULSE 80–96; RESP 18; TEMP 36.7–36.9; O2SAT 98
[2022-01-16 15:23] LABS: Source Nasal/Nares
[2022-01-16] MEDS: Oxytocin 10 UNITS/ML VIAL IM (15:28)
[2022-01-16] MEDS: Methylergonovine 0.2 MG/ML VIAL (15:35)
[2022-01-16 15:55] LABS: COVID-19 PCR Negative (Negative)
--- NOTE | 2022-01-16 15:59 | W.PM.OBHPL1 ---
Date of service: 01/16/22 Time of Service: 15:00 Assessment and Plan Assessment and plan (1) Uterine contractions: Status: Acute Assessment and plan: A: @ 39 wks Spont onset labor, delivery imminent GBS neg, category 1 tracing P: Admit to BC, prepare for delivery OB-HPI Labor/Delivery History of Present Illness Reason for Visit: Labor at 39 weeks Chief Complaint: Uterine Contractions (was sleeping and woke up between noon and 1300 with strong contractions and spotting, paged CNM at 1413, arrived in center just before 1500.). TAOLN Calculator Estimated Delivery Date Method WG Current Estimate 01/24/22 Ultrasound #1 Other Estimates 01/03/22 LMP (Certain) 01/23/22 Ultrasound #2 Delivery Date-Baby A 01/16/22 38w 6d History of Present Expected Delivery Route/Plan - CNM FOB - Nahid [place], daughter Marisol MORALES yes to circ Desires epidural during labor Immediate Depo injection GBS negative Specific Issues/Plan 1. Received Covid vaccine - has not received booster 1a COVID 01/24, repeat covid infection 11/03/21 1b. scan @ 34 wks for interval growth: EFW 39th percentile. Amniotic fluid index 12.7 cm 2. Hx depression, no current meds 2a. Start celexa 20 mg 12/09/21 3. Marijuana user, is aware POSC will be needed; repeat UDS @ 28 wks +THC 3a. POSC indicated - completed 01/13/22 with KM 4. Hx mild scoliosis, had anesthesia consult 1st full term , no concerns 5. Panorama LR, male 6. Hgb 10.9, left message that RX for iron to take every other day on 12/09/21 7. HgbA1c 4.9 Assessment: History Reviewed & Current Review of Systems Narrative: ROS completed and found to be noncontributory other then HPI PFSH All Active Problems (Updated 01/16/22 @ 16:11 by Betsy Cisse) Uterine contractions (Acute) COVID-19 affecting in second trimester (Acute) (Acute) Anemia (Chronic) GERD (gastroesophageal reflux disease) (Chronic) Marijuana use (Acute) Depression (Chronic 11/24/11) chronic depressed mood Anxiety (Acute 03/28/12) Medical History (Updated 01/16/22 @ 16:11 by Betsy Cisse) Abscess, dental Asthma outgrown BV (bacterial vaginosis) 04/07/15. Rx with Metronidazole. 06/30/15 Rx with PO Metronidazole Genitourinary Chlamydia infection 12/14,02/13 and 05/15 Heart murmur (10/27/11) innocent Idiopathic scoliosis (10/27/11) Previous recurrent miscarriages affecting , antepartum Recurrent acute otitis media outgrown Tobacco abuse Vaginal discharge during Surgical History Dilation and curettage (06/19/13) for embryonic demise at 12w EGA. Status post dilation and curettage 08/15/18; Missed AB at ~8 weeks Family History (Updated 09/09/21 @ 12:58 by Judie Davis CNM) Mother Anxiety Depression Hypertension Father Anxiety Depression Hypertension Grandmother Mental disorder anxiety/depression Diabetes Sister Asthma COPD (chronic obstructive pulmonary disease) Maternal Aunt Cancer lung and mouth / oral cancer passed age 32 Paternal Uncle Colon cancer Maternal Grandfather Heart disease Stroke Other Idiopathic scoliosis Social History (Updated 09/09/21 @ 12:59 by Judie Davis CNM) Smoking/Tobacco Use Status: Former Tobacco Use Smoking risk assessment performed?: Yes Alcohol Intake: former Drug use: Never Substance use type: does not use Details: 5-6 cigarettes per day Adopted: No Caregiver/Support person: No Foster care: No Do you need help understanding health information?: Often 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 Date GA/Weeks # Preg Succ Route Wgt Sex Labor Lgth Anesthesia Location Prov Complic 06/19/[address] Tiwari 08/15/18 8 Jeffrey Coles 05/29/[address] Ochoa 12/10/20 39 No vaginal 7 lb 5.28 oz Female 23 hrs 45 min regional [facility]ey Delivery Date: 06/19/13 Last Updated by: Mirella Kasper M.D. MAB ~12wks; D&C Delivery Date: 08/15/18 Last Updated by: Mirella Kasper M.D. MAB at ~ 8 weeks; D&C Delivery Date: 05/29/19 Last Updated by: Mirella Kasper M.D. MAB at 10.2 weeks; D&C Delivery Date: 12/10/20 Last Updated by: MILLY Ruff Meds Allergies and Home Medications Allergies Allergy/AdvReac Type Severity Reaction Status Date / Time banana Allergy Hives Verified 01/13/22 15:40 Home Medications Medication Instructions Recorded Confirmed Type prenat.vits,viri,[id number] 1 tab PO DAILY 06/18/21 01/13/22 History citalopram 20 mg tablet (Celexa) 20 mg PO DAILY #30 tabs 12/09/21 01/13/22 Rx ferrous sulfate 325 mg (65 mg 325 mg PO Q OTHER DAY #90 tabs 12/09/21 01/13/22 Rx iron) tablet Exam Physical Exam Vital signs: Pulse BP 89 135/58 L 01/16/22 15:49 01/16/22 15:49 Vital Signs Reviewed: Yes Constitutional Constitutional: severe distress and thin Detailed Labor and Delivery Exam Dilation: 8 Effacement (%): 100 station: +2 Amniotic Membrane Status: Intact (on arrival) Rupture Method: Artifical (@ 1504) Amniotic Fluid: Meconium (dark) Contraction Frequency(min): 2-3 Contraction Duration(sec): 60-80 Contraction Intensity: Strong Fetus A Heart Rate Baseline: 125 Monitor Accelerations: 15 X 15 Monitor Decelerations: None Variability: Moderate (6-25 BPM) Presentation: Vertex Categories: Category I Est. Weight: 6 lb 9.822 oz Est. Weight: 3000 gms Date of Membrane Rupture: 01/16/22 Time of Membrane Rupture: 15:04 HEENT Exam HEENT Exam: Normal Neck Exam Neck Exam: Normal Chest/Brest/Axilla Exam Chest Exam: Normal Breast Exam Breast Exam: Not Done Respiratory Exam Respiratory Exam: Normal Cardiovascular Exam Cardiovascular Exam: Normal Abdominal Exam Abdominal Exam: Normal (Gravid, nontender between contractions) Rectal Exam Rectal Exam: Not Done Exam Exam: Normal Extremities Exam Extremities Exam: Normal Back/Spine/Pelvis Exam Back Exam: Normal Pelvis Adequate: Yes Skin Exam Skin Exam: Normal Neurological Exam Neurological Exam: Normal Psychiatric Exam Psychiatric Exam: Normal Results Results Group Beta Strep: Negative Blood Type: B+ Rubella Status: Immune Varicella Immunity: Immune Risk Assessment Risk for Shoulder Dystocia Historical/Initial OB: NEGATIVE FOR: Pelvic Abnormality, Pre- BMI>30, Previous Shoulder Dystocia or Previous Macrosomia Increased Risk?: No Date/Initial: 09/09/21 Low risk Risk for Pre-Eclampsia Date Initiated/Initials: 09/09/21 KH Yes, if one or more: NEGATIVE FOR: Hx Pre-E/Gest HTN, Chronic HTN, Multiple Gestation, Pre-gestational DM, Renal Disease, Systemic Lupus or APA Syndrome Yes, if 2 or more: NEGATIVE FOR: Nulliparity, Age>= 35 yrs, >10yr btwn pregnancies, BMI>30, ethinicty, Mother/Sister w/ Pre-E or Previous IUGR Risk for Post- Hemorrhage Initial: NEGATIVE FOR: Multiple Gestation, Previous PPH, Known Clotting Deficiency, Grand Multiparity or Anticoagulation At Risk?: No Counseled re: Active Management: Yes Risks Reviewed Risks Reviewed Upon Admission: Yes
[2022-01-16] MEDS: Acetaminophen 325 MG TAB (16:01)
[2022-01-16] MEDS: Ibuprofen 600 MG TAB (16:01)
--- NOTE | 2022-01-16 16:16 | OBVDS_ITS ---
Date of service: 01/16/22 Time of Service: 16:16 OB Labor/ Delivery Information Baby A Delivery Delivery Method: Spontaneaous Presentation: Vertex Breech Position: N/A Cord Description-Baby A: 3 Vessels Amniotic Fluid: Meconium Estimated Blood Loss: QBL 800 Delivery Outcome: Liveborn Transferred: Remains with Mother Note: Pt arrived in advanced labor with involuntary urges to bear down, found to be 8/100% vtx +2 with tight membranes across vtx. AROM for dark mec, EFM showed category 1 tracing, pt spontaneously rolling from semifowlers to left lateral to right lateral and back again, pushing strongly and supported effectively by FOB. Anterior lip manually reduced followed by of a vigorous male over intact perineum, shoulders transverse and delivered easily. Bulb suctioned on field for meconium stained mucous in nose and mouth then handed to mother's arms. Pitocin 10 units given IM, vaginal bleeding began shortly after. Cord clamped and cut by FOB, placenta delivered Andrade intact with 3VC, fundal massage applied vigorously and bleeding slowed quickly to scant rubra. Clots and blood measured in drape at 800 ml after previously collected amniotic fluid was accounted for. Pt remains hemodynamically stable, methergine 0.2 ml given IM, fundus firm well below umbilicus. Manual sweep of lower segment done with no clots found, small introital hematoma at vaginal noted, no lacerations upon inspection of vulva, perineum and vagina. Strong family bonding observed, apgars 9/9, weight 3155 gms. Providers Nurse Disease Intervention Specialist: Betsy Cisse Nurse: Salma Carrasco Nurse: Dede Basilio Labor/Delivery Information Number of Babies in Womb: 1 Steroids Given: None Reason Steroids Not Administered: N/A Group Beta Strep: Negative Antibiotics Administered: No Rubella Status: Immune Blood Type: B+ Varicella Immunity: Immune Shoulder Dystocia: No Stages of Labor Onset of Labor Date: 01/16/22 Onset of Labor Time: 12:00 Complete Dilatation Date: 01/16/22 Complete Dilatation Time: 15:22 Labor - Stage 1 Duration: 3 hours and 22 minutes ROM Baby A: 01/16/22 ROM Baby A: 15:04 ROM Total Time- Baby A: [id number] Delivery Date-Baby A: 01/16/22 Infant Delivery Time-Baby A: 15:27 Labor Stage 2 Duration: 5 minutes Placenta Delivery Date-Baby A: 01/16/22 Placenta Delivery Time-Baby A: 15:33 Labor-Stage 3 Duration: 6 minutes Total Length of Labor-Baby A: 3 hours and 27 minutes Placenta Status: Delivered Baby A Infant Gender: Male Gestational Status: Term (39-41.6 wks) Gestational Age in Weeks/Days: 38 Weeks and 6 Days weight: 6 lb 15.289 oz Weight Comment: 3155 gms Length-Baby A: 20 in Score-1 Minute Interval(Baby A) Heart Rate-1 minute: 100 BPM or Greater Respiratory Effort- 1 minute: Spontaneous/Strong Cry Muscle Tone-1 minute: Active Movement Reflex Response-1 minute: Prompt Response Color-1 minute: Bluish Hands or Feet Total Score-1 minute: 9 Score-5 Minute Interval(Baby A) Heart Rate- 5 minute: 100 BPM or Greater Respiratory Effort-5 minute: Spontaneous/Strong Cry Muscle Tone-5 minute: Active Movement Reflex Response-5 minute: Prompt Response Color-5 minute: Bluish Hands or Feet Total Score- 5 minute: 9
[2022-01-16 16:25] LABS: HCT 33.5 % (36.0-46.0); HGB 10.8 g/dL (11.2-15.7); MCH 28.8 pg (27.0-33.0); MCHC 32.2 % (32.0-36.0); MCV 89 fL (80-95); MPV 9.9 fL (8.0-11.0); Platelet Count 325 10^3/uL (130-400); RBC 3.75 10^6/uL (3.93-5.22); RDW 13.3 % (11.7-14.6); RDW-SD 43.6 fL; WBC 9.83 10^3/uL (4.4-10.8)
--- NOTE | 2022-01-16 18:03 | W.PM.OBPNV1 ---
Date of service: 01/17/22 Time of Service: 08:50 Assessment and Plan Assessment and plan (1) Term delivered: Status: Acute Assessment and plan: A: Nml PPD#1 Satisfied with experience Chooses formula feeding P: Plan for Nexplanon insertion today [place] circumcision planned Pt desires discharge to home @ 24 hrs PP Written instructions reviewed and given to pt Subjective Subjective Patient comments: No complaints, Pain well controlled, Tolerating diet and Flatus present Patient's Mood: satisfied, happy baby status: Doing well, Bottle feeding well, Rooming in and Strong Bonding Observed [place] feeding status: Exclusively formula feeding Exam Physical Exam Vital signs: Temp Pulse Resp BP 98.4 F 90 18 106/51 L 01/16/22 17:50 01/16/22 17:50 01/16/22 17:50 01/16/22 17:50 Vital Signs Reviewed: Yes Constitutional Constitutional: no acute distress and cooperative HEENT Exam HEENT Exam: Normal Neck Exam Neck Exam: Normal Breast Exam Bilateral: Breast Exam: Normal and Soft Nipple Exam: Normal and Uninjured Respiratory Exam Respiratory Exam: Normal Cardiovascular Exam Cardiovascular Exam: Normal Abdominal Exam Abdomen: Other (soft, nontender) Fundal Exam Fundus: Below Umbilicus and Firm Rectal Exam Rectal Exam: Not Done Exam Perineum: Hematoma (small hematoma at entrance to vagina), Intact and Normal Genitals image: 1. Extremities Exam Extremity Exam: Normal, Full ROM and Warm to Touch Back/Spine/Pelvis Exam Back Exam: Normal Skin Exam Skin Exam: Normal Neurological Exam Neurological Exam: Normal Psychiatric Exam Psychiatric Exam: Normal Results Hemoglobin/Hematocrit: Hgb 10.8 g/dL (11.2-15.7) L 01/16/22 16:11 Hct 33.5 % (36.0-46.0) L 01/16/22 16:11
[2022-01-16] MEDS: Acetaminophen 325 MG TAB 650 MG PO (20:05)
--- NOTE | 2022-01-16 21:30 | NUR.NOTE ---
Nursing Note: Pt ambulated to bathroom with standby assist. No complaints of dizziness. pericare performed after voiding. Pt instructed to call before ambulation.
[2022-01-17 00:27] VITALS: BP 84/50; PULSE 79; RESP 16; TEMP 37.1
[2022-01-17] MEDS: Acetaminophen 325 MG TAB 650 MG PO (01:38)
[2022-01-17] MEDS: Ibuprofen 600 MG TAB PO (01:38)
[2022-01-17 07:37] VITALS: BP 96/63; PULSE 85; RESP 18; TEMP 36.7; O2SAT 99
[2022-01-17] MEDS: Citalopram 20 MG TAB PO (08:18)
--- NOTE | 2022-01-17 15:04 | W.PM.OBDISCH ---
Date of service: 01/17/22 Time of Service: 15:04 DS: Diagnosis Discharge Diagnosis (1) Term delivered: Status: Acute Discharge Plan Disposition Patient Disposition: HOME Condition: Good Discharge Details Reason For Visit: Labor at 39 Weeks Admit Date/Time: 01/16/22 15:13 Admit Provider: Betsy Cisse Attending Provider: Betsy Cisse Primary Care Provider: Nidia Howard Hospital Course Hospital Course: Vaginal delivery 25 minutes after arrival in unit, nml course, pt desires discharge to home at 24 hrs, received Depo Provera injection prior to leaving. Home Meds and New Rx's Prescriptions: No Action prenat.vits,viri,[id number] Tablet 1 tab PO DAILY citalopram [Celexa] 20 mg tablet 20 mg PO DAILY Qty: 30 4RF ferrous sulfate 325 mg (65 mg iron) tablet 325 mg PO Q OTHER DAY Qty: 90 1RF Discharge Instructions Additional Instructions: Please keep your 2 and 6 week appointments with your midwives, call for any and all questions. Stand Alone Forms: BC Instructions, BC Post Vaginal Deliver Activity:: Activity as Tolerated Equipment/Supplies:: No Equipment Needed Diet:: Normal Diet Discharge Orders Discharge Orders: Discharge Order (Routine); Ordered 01/17/22 Ordered By: Betsy Cisse OB:DS Summary Summary Vaginal Delivery Method: Spontaneaous Contraception Discussed Contraception Discussed: Yes (injection given at discharge, next one due in 12 weeks) Contraceptive Plan: Medroxyprogesterone, [place] Gender-Baby A: Male weight: 6 lb 15.289 oz Status at Discharge Functional status at discharge: independent ambulation Overall status at discharge: patient is progressing back to baseline Mental Status: mental status grossly normal Speech and Movement: speech and movement normal and speech clear Mood: congruent mood Affect: normal affect Exam Physical Exam Vital signs: Temp Pulse Resp BP Pulse Ox 98.1 F 85 18 96/63 L 99 01/17/22 07:37 01/17/22 07:37 01/17/22 07:37 01/17/22 07:37 01/17/22 07:37 Constitutional Constitutional: no acute distress and cooperative HEENT Exam HEENT Exam: Normal Neck Exam Neck Exam: Normal Breast Exam Bilateral: Breast Exam: Normal and Soft Respiratory Exam Respiratory Exam: Normal Cardiovascular Exam Cardiovascular Exam: Normal Abdominal Exam Abdomen: Other (soft, nontender) Fundal Exam Fundus: Below Umbilicus and Firm Rectal Exam Rectal Exam: Not Done Exam Perineum: Hematoma (small hematoma at entrance to vagina), Intact and Normal Extremities Exam Extremity Exam: Normal, Full ROM and Warm to Touch Back/Spine/Pelvis Exam Back Exam: Normal Skin Exam Skin Exam: Normal Neurological Exam Neurological Exam: Normal Psychiatric Exam Psychiatric Exam: Normal PFSH All Active Problems (Updated 01/16/22 @ 18:03 by Betsy Cisse) Term delivered (Acute) COVID-19 affecting in second trimester (Acute) (Acute) Anemia (Chronic) GERD (gastroesophageal reflux disease) (Chronic) Marijuana use (Acute) Depression (Chronic 11/24/11) chronic depressed mood Anxiety (Acute 03/28/12) Medical History (Updated 01/16/22 @ 18:03 by Betsy Cisse) Abscess, dental Asthma outgrown BV (bacterial vaginosis) 04/07/15. Rx with Metronidazole. 06/30/15 Rx with PO Metronidazole Genitourinary Chlamydia infection 12/14,02/13 and 05/15 Heart murmur (10/27/11) innocent Idiopathic scoliosis (10/27/11) Previous recurrent miscarriages affecting , antepartum Recurrent acute otitis media outgrown Tobacco abuse Uterine contractions Vaginal discharge during Surgical History Dilation and curettage (06/19/13) for embryonic demise at 12w EGA. Status post dilation and curettage 08/15/18; Missed AB at ~8 weeks Family History (Updated 09/09/21 @ 12:58 by Judie Davis CNM) Mother Anxiety Depression Hypertension Father Anxiety Depression Hypertension Grandmother Mental disorder anxiety/depression Diabetes Sister Asthma COPD (chronic obstructive pulmonary disease) Maternal Aunt Cancer lung and mouth / oral cancer passed age 32 Paternal Uncle Colon cancer Maternal Grandfather Heart disease Stroke Other Idiopathic scoliosis Social History (Updated 09/09/21 @ 12:59 by Judie Davis CNM) Smoking/Tobacco Use Status: Former Tobacco Use Smoking risk assessment performed?: Yes Alcohol Intake: former Drug use: Never Substance use type: does not use Details: 5-6 cigarettes per day Adopted: No Caregiver/Support person: No Foster care: No Do you need help understanding health information?: Often 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 Date GA/Weeks # Preg Succ Route Wgt Sex Labor Lgth Anesthesia Location [facility] 06/19[facility] Tiwari 08/15/18 8 Jeffrey Coles 05/29/[address] Ochoa 12/10/20 39 No vaginal 7 lb 5.28 oz Female 23 hrs 45 min regional ESTELLE Rainey Delivery Date: 06/19/13 Last Updated by: Mirella Kasper M.D. MAB ~12wks; D&C Delivery Date: 08/15/18 Last Updated by: Mirella Kasper M.D. MAB at ~ 8 weeks; D&C Delivery Date: 05/29/19 Last Updated by: Mirella Kasper M.D. MAB at 10.2 weeks; D&C Delivery Date: 12/10/20 Last Updated by: MILLY Ruff DS: Data Vitals/I&O Vitals and I&O: Vital Signs Temperature 98.1 F 01/17/22 07:37 Pulse 85 01/17/22 07:37 Pulse Rhythm Regular 01/17/22 07:37 Respiratory Rate 18 01/17/22 07:37 Respiratory Depth Normal 01/16/22 15:00 Blood Pressure 96/63 L 01/17/22 07:37 Blood Pressure Mean 74 01/17/22 07:37 Pulse Oximetry 99 01/17/22 07:37 Oxygen Delivery Method Room Air 01/16/22 15:00 Oxygen Flow Rate 0 01/16/22 15:00 Pain Level 6 01/17/22 01:38 Comment 01/17/22 07:37 Intake & Output 01/16/22 01/17/22 01/17/22 23:59 11:59 23:59 Output Total 150 / 150 Balance -150 / -150 Weight 150 lb Output: Urine 150 / 150 Other: Urine Color Yellow Data Completed and Pending Labs on day of discharge: Labs from last 24 hours 01/16/22 01/16/22 01/16/22 16:11 16:11 15:07 WBC 9.83 RBC 3.75 L Hgb 10.8 L Hct 33.5 L MCV 89 MCH 28.8 MCHC 32.2 RDW 13.3 Plt Count 325 MPV 9.9 COVID-19 Source Nasal/Nares SARS-CoV-2 (PCR) Negative Patient ABO/Rh B Positive Antibody Screen NEGATIVE
[2022-01-17 16:50] VITALS: BP 117/64; PULSE 81; RESP 16; TEMP 36.7; O2SAT 98
[2022-01-17 22:16] VITALS: BP 116/70; PULSE 102
== END 2022-01-17 17:50 | disposition home or self-care (01) | DRG 806 ==
PROVIDERS: Admitting Provider Advanced Practice Midwife; PCP Nurse Practitioner; Visit Provider Advanced Practice Midwife
DX: O99.02 Anemia complicating childbirth (principal); O71.7 Obstetric hematoma of pelvis; Z37.0 Single live birth; O99.324 Drug use complicating childbirth; Z3A.39 39 weeks gestation of pregnancy; O77.0 Labor and delivery complicated by meconium in amniotic fluid; O99.344 Other mental disorders complicating childbirth; F32.A Depression, unspecified; F12.90 Cannabis use, unspecified, uncomplicated; D64.9 Anemia, unspecified; O99.62 Diseases of the digestive system complicating childbirth; F41.8 Other specified anxiety disorders; K21.9 Gastro-esophageal reflux disease without esophagitis; Z87.891 Personal history of nicotine dependence
CPT/HCPCS: 36415; 80348; 85027; 86850; 86900; 86901; 87635; J1050; J2210; J2590

== ENCOUNTER 2022-03-14 18:54 | Emergency (ER) | payer MEDICAID, SELFPAY ==
[2022-03-14 19:10] VITALS: BP 112/84; PULSE 72; RESP 18; TEMP 37; O2SAT 100
[2022-03-14] MEDS: Ketorolac 15 MG/ML VIAL IVP (19:53)
[2022-03-14] MEDS: Normal Saline 1,000 ML 1000 ML IV (19:54)
[2022-03-14] MEDS: Ondansetron 4 MG/2 ML VIAL IVP (19:54)
[2022-03-14 19:55] LABS: Abs Immature Grans 0.02 10^3/uL (0.0-0.06); Absolute Basophil Count 0.01 10^3/uL (0.0-0.2); Absolute Lymphocyte Count 2.27 10^3/uL (1.2-3.4); Absolute Neutrophil Count 1.78 10^3/uL (1.2-6.7); Basophils % 0.2; Eosinophils % 8.4; HCT 42.1 % (36.0-46.0); HGB 13.5 g/dL (11.2-15.7); Immature Grans % 0.4; Lymphocytes % 47.5; MCH 26.6 pg (27.0-33.0); MCHC 32.1 % (32.0-36.0); MCV 83 fL (80-95); Monocytes % 6.3; Neutrophils % 37.2; Platelet Count 384 10^3/uL (130-400); RBC 5.08 10^6/uL (3.93-5.22); RDW 15.8 % (11.7-14.6); RDW-SD 47.9 fL; WBC 4.78 10^3/uL (4.4-10.8)
[2022-03-14 20:14] LABS: ALT 55 U/L (14-59); AST 30 U/L (15-37); Albumin 4.2 g/dL (3.4-5.0); Alkaline Phosphatase 140 U/L (46-116); Anion Gap 10.1 mmol/L (3-11); BUN 17 mg/dL (7-18); Bilirubin, Total 0.4 mg/dL (0.2-1.0); CO2 26.9 mmol/L (21.0-32.0); CREATININE 0.9 mg/dL (0.55-1.02); Calcium 9.2 mg/dL (8.5-10.1); Chloride 102 mmol/L (98-107); Estimated GFR 89.86 (mL/min/1.73m2); Glucose 96 mg/dL (74-106); Lipase 343 U/L (73-393); Magnesium 1.9 mg/dL (1.8-2.4); Potassium 3.9 mmol/L (3.5-5.1); Sodium 139 mmol/L (136-145); Total Protein 8.3 g/dL (6.4-8.2)
[2022-03-14 21:00] LABS: Bilirubin Negative (Negative); Blood Small (Negative); Clarity Cloudy (Clear); Glucose Negative (Negative); Ketones Negative (Negative); Leukocyte Esterase Trace (Negative); Nitrite Negative (Negative); Specific Gravity 1.025 (1.005-1.025)
[2022-03-14 21:09] LABS: Bacteria Moderate HPF (Negative); C & S Indicated? No/Sq. Contamination; Casts Negative LPF (Negative); Crystals Negative HPF (Negative); Epithelial Cells Many HPF (Negative); Mucus Negative (Negative)
[2022-03-14 21:36] LABS: COVID-19 PCR Negative (Negative); Influenza A PCR Negative (Negative); Influenza B PCR Negative (Negative); RSV PCR Negative (Negative)
[2022-03-14 21:47] LABS: Source Nasopharynx
--- NOTE | 2022-03-14 22:11 | ED.GENADUL_ITS ---
Discharge Plan Disposition Patient Disposition: Home Condition: Improving Discharge Details Clinical Impression: Nausea & vomiting Primary Care Provider: Nidia Howard ED Provider: Toñito Hare Home Meds and New Rx's Prescriptions: New ondansetron 4 mg tablet,disintegrating 4 mg PO Q6H PRN (Reason: nausea and vomiting) Qty: 10 0RF Discharge Instructions Instructions: Acute Nausea and Vomiting (ED) Additional Instructions: At this time your labs are very reassuring for no emergent findings. I suspect that you may have a viral illness causing your symptoms but if you develop any new or worsening symptoms, change in your condition, or further concerns return to the emergency department for reassessment and reconsideration of advanced imaging as needed. If not improving in the next couple days please follow-up with your primary care provider for reassessment Referrals: Nidia Howard, PYROMETER OPERATOR [Primary Care Provider] - (If not improving in the next couple days) Discharge Data Discharge Date/Time-TO BE ENTERED AT DEPARTURE: 03/14/22 22:37 Medical Decision Making Patient presenting to the emergency department for chief complaint of epigastric abdominal pain nausea vomiting for the past 4 to 5 days. She does state some slight fever and chills and nasal congestion. Patient denies any urinary or vaginal symptoms, or respiratory symptoms. Physical exam shows soft nontender abdomen, normal active bowel sounds, normal cardiac and respiratory exam. Given overall benign exam we will plan on checking labs pending results we will give antiemetics fluids and pain meds. Review of labs show an overall unremarkable CBC with no significant leukocytosis or shift. CMP shows a slightly elevated alk phos and total protein and lipase within normal range urinalysis shows a contaminated specimen and patient denies any urinary symptoms. Patient was reassessed and continues to have no significant abdominal tenderness. Patient negative for COVID flu and RSV. Suspect viral etiology versus gastritis/GERD patient has history of GERD discussed conservative management with patient which she is agreeable to. Exam highly doubt any emergent surgical pathology at this time. After discussion of diagnosis and plan of care patient has no further needs, questions, or concerns and states clear understanding to return to the emergency department for any worsening symptoms. This documentation was generated using [employer] system, please disregard any oddities of phrase or misspellings. Lab Data Lab results reviewed: Yes I reviewed the patient's lab results. HPI General Mode of arrival: ambulatory . Date/Time Provider Initiated Documentation: 03/14/22 18:56 . Limitations to Documentation: no limitations . Information obtained by: patient and RN notes reviewed . History of Present Illness 26 year old F presents to the emergency department with the chief complaint of Abdominal pain nausea vomiting, described as moderate, with intensity rated at 7. Quality is described as aching, and is localized to the abdomen. Patient reports no radiation. Patient started experiencing this day(s) (5) and it has been constant. No relieving factors improve symptom(s), No exacerbating factors reported . Patient notes fever/chills. Patient did receive the following treatments prior to arrival, none Related Data Home Medications Medication Instructions Recorded Confirmed ondansetron 4 mg disintegrating 4 mg PO Q6H PRN nausea and 03/14/22 tablet vomiting #10 tabs Previous Rx's Medication Instructions Recorded ondansetron 4 mg disintegrating 4 mg PO Q6H PRN nausea and 03/14/22 tablet vomiting #10 tabs Allergies Allergy/AdvReac Type Severity Reaction Status Date / Time banana Allergy Hives Verified 01/13/22 15:40 General Stated Complaint: Abd Prob RANDEE: 3 Review of Systems Constitutional Constitutional: Reports chills, Reports fever(s) and Reports poor appetite Cardiovascular Cardiovascular: Denies chest pain and Denies dyspnea Respiratory Respiratory: Denies cough and Denies dyspnea Gastrointestinal Gastrointestinal: Reports as per HPI, Reports abdominal pain, Denies melena, Denies change in bowel habits, Reports constipation, Denies diarrhea, Reports nausea and Reports vomiting Genitourinary Genitourinary: Denies abnormal vaginal bleeding, Denies hematuria, Denies urinary incontinence, Denies urinary hesitancy and Denies urinary urgency Integumentary/Breasts Skin/Breast: Denies rash PFSH All Active Problems (Updated 03/14/22 @ 22:17 by Toñito Hare NP) Nausea & vomiting (Acute) Term delivered (Acute) Anemia (Chronic) GERD (gastroesophageal reflux disease) (Chronic) Marijuana use (Acute) Depression (Chronic 11/24/11) chronic depressed mood Anxiety (Acute 03/28/12) Medical History Abscess, dental Asthma outgrown BV (bacterial vaginosis) 04/07/15. Rx with Metronidazole. 06/30/15 Rx with PO Metronidazole COVID-19 affecting in second trimester Genitourinary Chlamydia infection 12/14,02/13 and 05/15 Heart murmur (10/27/11) innocent Idiopathic scoliosis (10/27/11) Previous recurrent miscarriages affecting , antepartum Recurrent acute otitis media outgrown Tobacco abuse Uterine contractions Vaginal discharge during Surgical History Dilation and curettage (06/19/13) for embryonic demise at 12w EGA. Status post dilation and curettage 08/15/18; Missed AB at ~8 weeks Family History Mother Anxiety Depression Hypertension Father Anxiety Depression Hypertension Grandmother Mental disorder anxiety/depression Diabetes Sister Asthma COPD (chronic obstructive pulmonary disease) Maternal Aunt Cancer lung and mouth / oral cancer passed age 32 Paternal Uncle Colon cancer Maternal Grandfather Heart disease Stroke Other Idiopathic scoliosis Social History Smoking/Tobacco Use Status: Former Tobacco Use Smoking risk assessment performed?: Yes Alcohol Intake: former Drug use: Never Substance use type: does not use Details: 5-6 cigarettes per day Adopted: No Caregiver/Support person: No Foster care: No Do you need help understanding health information?: Often 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 Sexually active: Yes Do you think of yourself as: straight/heterosexual Current gender identity: female Do you feel safe at home: Yes Do you feel safe in your relationship?: Yes Female Reproductive History Menstrual control method: none History History 4 Para 2 Hx # Term Pregnancies 2 Multiple births 0 Hx # Pregnancies 0 Ectopic pregnancies 0 AB induced 0 Hx Number of Living Children 2 AB spontaneous 2 Past Pregnancies Del. Date GA/Weeks # Preg Succ Route Wgt Sex Labor Lgth Anesth esia Location Prov Complic 06/19/[address] Shannan norton 08/15/18 8 Jd Coles 05/29/[address] Ochoa 12/10/20 39 No vaginal 3324.832 g Female 23 hrs 45 min any Rainey CNM 01/16/22 38 No Yes vaginal 3155.018 g Male 3 hrs 27min ESTELLE Rainey Delivery Date: 06/19/13 Last Updated by: Mirella Kasper M.D. MAB ~12wks; D&C Delivery Date: 08/15/18 Last Updated by: Mirella Kasper M.D. MAB at ~ 8 weeks; D&C Delivery Date: 05/29/19 Last Updated by: Mirella Kasper M.D. MAB at 10.2 weeks; D&C Delivery Date: 12/10/20 Last Updated by: Kamla Dugan LPN Alleg[place] Delivery Date: 01/16/22 Last Updated by: MILLY Ruff; Dark Meconium stain Exam Const General: cooperative Orientation: alert, awake and oriented x3 Resp Effort & Inspection: normal respiratory effort and able to speak in complete sentences Auscultation: clear to auscultation bilaterally Cardio Rate: regular rate Rhythm: regular rhythm Heart Sounds: S1 normal and S2 normal GI Palpation: soft, no hepatosplenomegaly, not firm, no guarding, no masses, no pulsatile masses, not rigid, no splenomegaly and nontender Auscultation: normal bowel sounds Back/Spine/Pelvis Back: no CVA tenderness Neuro General: patient alert, patient awake, patient oriented x3, gait normal and moves all extremities Course Vital Signs Vital signs: Vital Signs Temperature 37.0 C 03/14/22 19:10 Pulse 72 03/14/22 19:10 Respiratory Rate 18 03/14/22 19:10 Blood Pressure 112/84 03/14/22 19:10 Pulse Oximetry 100 03/14/22 19:10 Temperature 37.0 C 03/14/22 19:10 Temperature Source Tympanic 03/14/22 19:10 Pulse 72 03/14/22 19:10 Respiratory Rate 18 03/14/22 19:10 Respiratory Effort 03/14/22 19:30 Blood Pressure 112/84 03/14/22 19:10 Blood Pressure Position Sitting 03/14/22 19:10 Pulse Oximetry 100 03/14/22 19:10 Oxygen Delivery Method Room Air 03/14/22 19:10 Oxygen Flow Rate 0 03/14/22 19:10 Pain Level 4 03/14/22 20:13 Lab/Test Results Lab/Test Results: Laboratory Tests Range/Units 03/14/22 03/14/22 03/14/22 19:40 19:40 20:48 WBC (4.4-10.8) 10^3/uL 4.78 RBC (3.93-5.22) 10^6/uL 5.08 Hgb (11.2-15.7) g/dL 13.5 Hct (36.0-46.0) % 42.1 MCV (80-95) fL 83 MCH (27.0-33.0) pg 26.6 L MCHC (32.0-36.0) % 32.1 RDW (11.7-14.6) % 15.8 H Plt Count (130-400) 10^3/uL 384 MPV (8.0-11.0) fL 10.0 Immature Gran % 0.4 Neutrophils % 37.2 Lymphocytes % 47.5 Monocytes % 6.3 Eosinophils % 8.4 Basophils % 0.2 Nucleated RBC % (0.0-0.3) % 0.0 Absolute Neutrophils (1.2-6.7) 10^3/uL 1.78 Absolute Lymphocytes (1.2-3.4) 10^3/uL 2.27 Absolute Monocytes (0.1-0.8) 10^3/uL 0.30 Absolute Eosinophils (0.0-0.7) 10^3/uL 0.40 Absolute Basophils (0.0-0.2) 10^3/uL 0.01 Sodium (136-145) mmol/L 139 Potassium (3.5-5.1) mmol/L 3.9 Chloride (98-107) mmol/L 102 Carbon Dioxide (21.0-32.0) mmol/L 26.9 Anion Gap (3-11) mmol/L 10.1 BUN (7-18) mg/dL 17 Creatinine (0.55-1.02) mg/dL 0.9 Est GFR (CKD-EPI 2020) (mL/min/1.73m2) 89.86 Glucose (74-106) mg/dL 96 Calcium (8.5-10.1) mg/dL 9.2 Magnesium (1.8-2.4) mg/dL 1.9 Total Bilirubin (0.2-1.0) mg/dL 0.4 AST (15-37) U/L 30 ALT (14-59) U/L 55 Alkaline Phosphatase (46-116) U/L 140 H Total Protein (6.4-8.2) g/dL 8.3 H Albumin (3.4-5.0) g/dL 4.2 Lipase (73-393) U/L 343 Urine Color (Yellow) Yellow Urine Clarity (Clear) Cloudy Urine pH (5-8) 7.0 Ur Specific [place] (1.005-1.025) 1.025 Urine Protein (Negative) mg/dL Trace H Urine Ketones (Negative) mg/dL Negative Urine Blood (Negative) Small H Urine Nitrite (Negative) Negative Urine Bilirubin (Negative) Negative Urine Urobilinogen (Up TO 0.2) EU/dL 1.0 H Ur Leukocyte Esterase (Negative) Trace H Urine RBC (0-2) HPF 3-5 H Urine WBC (0-5) HPF 5-10 Ur Epithelial Cells (Negative) HPF Many Urine Crystals (Negative) HPF Negative Urine Bacteria (Negative) HPF Moderate Urine Casts (Negative) LPF Negative Urine Mucus (Negative) Negative Ur Culture Indicated? No/Sq. Contamination Urine Glucose (Negative) mg/dL Negative COVID-19 Source SARS-CoV-2 (PCR) (Negative) Influenza Type A (PCR) (Negative) Influenza Type B (PCR) (Negative) RSV (PCR) (Negative) Range/Units 03/14/22 20:50 WBC (4.4-10.8) 10^3/uL RBC (3.93-5.22) 10^6/uL Hgb (11.2-15.7) g/dL Hct (36.0-46.0) % MCV (80-95) fL MCH (27.0-33.0) pg MCHC (32.0-36.0) % RDW (11.7-14.6) % Plt Count (130-400) 10^3/uL MPV (8.0-11.0) fL Immature Gran % Neutrophils % Lymphocytes % Monocytes % Eosinophils % Basophils % Nucleated RBC % (0.0-0.3) % Absolute Neutrophils (1.2-6.7) 10^3/uL Absolute Lymphocytes (1.2-3.4) 10^3/uL Absolute Monocytes (0.1-0.8) 10^3/uL Absolute Eosinophils (0.0-0.7) 10^3/uL Absolute Basophils (0.0-0.2) 10^3/uL Sodium (136-145) mmol/L Potassium (3.5-5.1) mmol/L Chloride (98-107) mmol/L Carbon Dioxide (21.0-32.0) mmol/L Anion Gap (3-11) mmol/L BUN (7-18) mg/dL Creatinine (0.55-1.02) mg/dL Est GFR (CKD-EPI 2020) (mL/min/1.73m2) Glucose (74-106) mg/dL Calcium (8.5-10.1) mg/dL Magnesium (1.8-2.4) mg/dL Total Bilirubin (0.2-1.0) mg/dL AST (15-37) U/L ALT (14-59) U/L Alkaline Phosphatase (46-116) U/L Total Protein (6.4-8.2) g/dL Albumin (3.4-5.0) g/dL Lipase (73-393) U/L Urine Color (Yellow) Urine Clarity (Clear) Urine pH (5-8) Ur Specific [place] (1.005-1.025) Urine Protein (Negative) mg/dL Urine Ketones (Negative) mg/dL Urine Blood (Negative) Urine Nitrite (Negative) Urine Bilirubin (Negative) Urine Urobilinogen (Up TO 0.2) EU/dL Ur Leukocyte Esterase (Negative) Urine RBC (0-2) HPF Urine WBC (0-5) HPF Ur Epithelial Cells (Negative) HPF Urine Crystals (Negative) HPF Urine Bacteria (Negative) HPF Urine Casts (Negative) LPF Urine Mucus (Negative) Ur Culture Indicated? Urine Glucose (Negative) mg/dL COVID-19 Source Nasopharynx SARS-CoV-2 (PCR) (Negative) Negative Influenza Type A (PCR) (Negative) Negative Influenza Type B (PCR) (Negative) Negative RSV (PCR) (Negative) Negative
[2022-03-14] MEDS: Acetaminophen 500 MG TAB 1000 MG PO (22:27)
[2022-03-14] MEDS: Prochlorperazine 5 MG TAB PO (22:28)
[2022-03-14 22:39] VITALS: BP 133/77; PULSE 69; RESP 18; O2SAT 98
== END 2022-03-14 22:37 | disposition home or self-care (01) ==
PROVIDERS: Emergency Provider Nurse Practitioner Family; PCP Nurse Practitioner
DX: R10.13 Epigastric pain (principal); R11.2 Nausea with vomiting, unspecified; R50.9 Fever, unspecified; R09.81 Nasal congestion; Z86.16 Personal history of COVID-19; Z20.822 Contact with and (suspected) exposure to COVID-19
CPT/HCPCS: 80053; 83690; 87637; 96361; 96374; 96375; 99284; 81003; 81015; 83735; 85025; J1885; J2405

== ENCOUNTER 2023-10-18 11:33 | Emergency (ER) | payer MEDICAID, SELFPAY ==
[2023-10-18 11:35] VITALS: BP 115/69; PULSE 107; RESP 20; TEMP 36.3; O2SAT 93
[2023-10-18] MEDS: Methadone Liquid 10 MG/ML 80 MG PO (12:12)
--- OUTSIDE RECORDS SUMMARY | 2023-10-18 12:48 | XMS_ITS | Encounter Summary ---
Author Organization [facility] Address [address] [place] [address] Care Team Providers Care Waredresser Name Role Phone Jane Ellsworth DIRECTOR OF CONVENTION SERVICES Primary Care Provider [phone] Encounter Details Date Type Department Care Team (Late st Contact Info) Description 06/15/2020 Lab Requisition [facility] Pathology & Laboratory Medicine - [facility] [address] [place] [address] [address] Encounter for other general examination Social History Tobacco Use Types Packs/Day Years Used Date Smoking Tobacco: Never Assessed Interpersonal Safety Answer Date Record ed Physically Hurt Never 10/06/2019 Verbally Threaten Not on file 10/06/2019 Sex and Gender Information Value Date Recorded Sex Assigned at Not on file Gender Identity Not on file Sexual Orientation Not on file documented as of this encounter Plan of Treatment Not on file documented as of this encounter Procedures Procedure Name Priority Date/Time Associated Diagnosis Comments PAP TEST Today 06/12/2020 11:30 EDT Encounter for other general examination documented in this encounter Results * PAP TEST (06/12/2020 11:30 EDT) Specimens A. Cervix and/or Endocervix , ThinPrep Imaging System with Manual Evaluation 06/18/2020 13:17 EDT [facility] Specimen Adequacy Satisfactory for Evaluation - transformation zone component present 06/18/2020 13:17 EDT [facility] General Categorization Negative for intraepithelial lesion or malignancy 06/18/2020 13:17 EDT [facility] Attestation . 06/18/2020 13:17 EDT [facility] at 1317 Clinical History See below 06/19/19 13:17 EDT [facility] Performing Lab [facility] 06/18/2020 13:17 EDT [facility] Scanned Images 06/18/2020 13:17 EDT [facility] Papanicolaou smear specimen (specimen) CERVIX UTERI STRUCTURE / Unknown 06/12/2020 11:30 EDT 06/15/2020 14:32 EDT Betsy Cisse [facility] PATHOLOGY ORDERABLES [facility] [address] [place] [address] documented in this encounter Visit Diagnoses Diagnosis Encounter for other general examination documented in this encounter Care Teams Waredresser Relationship Specialty Start Date End Date Jane Ellsworth NP [address] [place] [address] [phone] PCP - General 06/24/13 documented as of this encounter
--- OUTSIDE RECORDS SUMMARY | 2023-10-18 12:48 | XMS_ITS | Referral Summary ---
Author Organization [facility] Address [address] [place] [address] Care Team Providers Care Ornithology Teacher Name Role Phone Jane Ellsworth RETAIL AREA MANAGER Primary Care Provider [phone] Social History Tobacco Use Types Packs/Day Years Used Date Smoking Tobacco: Never Assessed Interpersonal Safety Answer Date Record ed Physically Hurt Never 10/06/2019 Verbally Threaten Not on file 10/06/2019 Sex and Gender Information Value Date Recorded Sex Assigned at Not on file Gender Identity Not on file Sexual Orientation Not on file Plan of Treatment Not on file Procedures Procedure Name Priority Date/Time Associated Diagnosis Comments HEPATITIS C AB W REFLEX TO HCV RNA BY PCR Routine 09/09/2021 14:00 EDT from Last 3 Months or Most Recently Relevant to Health Maintenance Results * HEPATITIS C AB W REFLEX TO HCV RNA BY PCR (09/09/2021 14:00 EDT) Hep C Antibody Negative Negative 09/10/2021 10:16 EDT [facility] Blood VENOUS BLOOD / Unknown 09/09/2021 14:00 EDT 09/09/2021 21:17 EDT Provider Outr Resulting Lab CHEMISTRY & BLOOD GAS ORDERABLES [facility] [address] [place] [address] from Last 3 Months or Most Recently Relevant to Health Maintenance Care Teams Ornithology Teacher Relationship Specialty Start Date End Date Jane Ellsworth, RETAIL AREA MANAGER [address] [place] [address] [phone] PCP - General 06/24/13
--- OUTSIDE RECORDS SUMMARY | 2023-10-18 12:48 | XMS_ITS | Encounter Summary ---
Author Organization [facility] Address [address] [place] [address] Care Team Providers Care Sports Administrator Name Role Phone Jane Ellsworth SHELLFISH SORTER Primary Care Provider [phone] Encounter Details Date Type Department Care Team (Late st Contact Info) Description 09/10/2021 Lab Requisition [facility] Pathology & Laboratory Medicine - [address] [address] Outr Resulting Lab, Provider Social History Tobacco Use Types Packs/Day Years [...] Procedure Name Priority Date/Time Associated Diagnosis Comments CHLAMYDIA/N. GONORRHOEAE AMPLIFIED NUCLEIC ACID Routine 09/09/2021 13:15 EDT documented in this encounter Results * CHLAMYDIA/N. GONORRHOEAE AMPLIFIED RNA (09/09/2021 13:15 EDT) Neisseria gonorrhoeae Result Negative Negative 09/11/2021 13:35 EDT [facility] Chlamydia trachomatis Result Negative Negative 09/11/2021 13:35 EDT [facility] Swab ENTIRE ENDOCERVIX / Unknown 09/09/2021 13:15 EDT 09/10/2021 17:41 EDT Provider Outr Resulting Lab MICROBIOLOGY - GENERAL ORDERABLES [facility] [address] [place] [address] documented in this encounter Visit Diagnoses Not on filedocumented in this encounter Care Teams Sports Administrator Relationship Specialty Start Date End Date Jane Ellsworth, CATHRYN [address] [place] [address] [phone] PCP - General 06/24/13 documented as of this encounter
--- OUTSIDE RECORDS SUMMARY | 2023-10-18 12:48 | XMS_ITS | Encounter Summary ---
Author Organization [facility] Address [address] [place] [address] Care Team Providers Care Clinical Technologist Name Role Phone Jane Ellsworth ENTRY LEVEL MANAGEMENT Primary Care Provider [phone] Encounter Details Date Type Department Care Team (Late st Contact Info) Description 09/09/2021 Lab Requisition [facility] Pathology & Laboratory Medicine - [address] [address] Outr Resulting Lab, Provider Social History Tobacco [...] Procedure Name Priority Date/Time Associated Diagnosis Comments HIV 1/2 ANTIGEN AND ANTIBODY, 4TH GENERATION Routine 09/09/2021 14:00 EDT documented in this encounter Results * HIV 1/2 ANTIGEN AND ANTIBODY, 4TH GENERATION (09/09/2021 14:00 EDT) HIV 1 and 2 Antibody/p24 Antigen, 4th Generation Negative Negative 09/10/2021 10:25 EDT [facility] Comment:If acute HIV-1 infec tion is suspected in a high risk patient, submit plasma specimen for HIV-1 RNA quantitation test. Blood VENOUS BLOOD / Unknown 09/09/2021 14:00 EDT 09/09/2021 21:17 EDT Narrative [facility] - 09/10/2021 10:25 EDT Fourth Generation assay performed on the Hubblraur XPT. Provider Outr Resulting Lab IMMUNOLOGY A ND SEROLOGY ORDERABLES Performing Organization Address City/State/[facility] Co de Phone Number [facility] [address] [place] [address] documented in this encounter Visit Diagnoses Not on filedocumented in this encounter Care Teams Clinical Technologist Relationship Specialty Start Date End Date Jane Ellsworth NP [address] [place] [phone] PCP - General 06/24/13 documented as of this encounter
--- OUTSIDE RECORDS SUMMARY | 2023-10-18 12:48 | XMS_ITS | Encounter Summary ---
Author Organization [facility] Address [address] [place] [address] Care Team Providers Care Electrical Helper Name Role Phone Jane Ellsworth CUTTER APPRENTICE HAND Primary Care Provider [phone] Encounter Details Date Type Department Care Team (Late st Contact Info) Description 09/09/2021 Lab Requisition [facility] Pathology & Laboratory Medicine - [address] [address] Outr Resulting Lab, Provider Social History Tobacco [...] Procedure Name Priority Date/Time Associated Diagnosis Comments RUBELLA IGG ANTIBODY Routine 09/09/2021 14:00 EDT VARICELLA IGG ANTIBODY Routine 09/09/2021 14:00 EDT documented in this encounter Results * VARICELLA IGG ANTIBODY (09/09/2021 14:00 EDT) Varicella IgG Ab Positive See Note 09/10/2021 10:44 EDT [facility] Comment:Presence of detectab le Varicella Zoster virus IgG antibodies. Blood VENOUS BLOOD / Unknown 09/09/2021 14:00 EDT 09/09/2021 21:17 EDT Provider Outr Resulting Lab IMMUNOLOGY A ND SEROLOGY ORDERABLES Performing Organization Address City/[facility] Co de Phone Number [facility] [address] [place] [address] * RUBELLA IGG ANTIBODY (09/09/2021 14:00 EDT) Rubella IgG Ab Positive See Note 09/10/2021 10:49 EDT [facility] Comment:Positive for IgG ant ibodies to Rubella virus. Blood VENOUS BLOOD / Unknown 09/09/2021 14:00 EDT 09/09/2021 21:17 EDT Provider Outr Resulting Lab CHEMISTRY & BLOOD GAS ORDERABLES Performing Organization Address [facility] Co de Phone Number [facility] [address] [place] [address] documented in this encounter Visit Diagnoses Not on filedocumented in this encounter Care Teams Electrical Helper Relationship Specialty Start Date End Date Jane Ellsworth, CATHRYN [address] [place] [address] [phone] PCP - General 06/24/13 documented as of this encounter
--- OUTSIDE RECORDS SUMMARY | 2023-10-18 12:48 | XMS_ITS | Clinical Summary ---
Author Organization [facility] Address [address] [place] [address] Care Team Providers Care Heating Equipment Installer Name Role Phone Jane Ellsworth MANAGER INSTALLATION Primary Care Provider Social History Tobacco Use Types Packs/Day Years Used Date Smoking Tobacco: Never Assessed Interpersonal Safety Answer Date Record ed Physically Hurt Never 10/06/2019 Verbally Threaten Not on file 10/06/2019 Sex and Gender Information Value Date Recorded Sex Assigned at Not on file Gender Identity Not on file Sexual Orientation Not on file Plan of Treatment Health Maintenance Due Date Last Done Comments Hepatitis B Vaccine (1 of 3 - 19+ 3-dose series) 2013 COVID-19 Vaccine ( season) 2022 Hepatitis C Screen Completed 09/09/2021, 06/12/2020 Procedures Procedure Name Priority Date/Time Associated Diagnosis Comments HEPATITIS C AB W REFLEX TO HCV RNA BY PCR Routine 09/09/2021 14:00 EDT from Last 3 Months or Most Recently Relevant to Health Maintenance Results * HEPATITIS C AB W REFLEX TO HCV RNA BY PCR (09/09/2021 14:00 EDT) Hep C Antibody Negative Negative 09/10/2021 10:16 EDT [facility] Blood VENOUS BLOOD / Unknown 09/09/2021 14:00 EDT 09/09/2021 21:17 EDT Provider Outr Resulting Lab CHEMISTRY & BLOOD GAS ORDERABLES [facility] [address] [place] [address] from Last 3 Months or Most Recently Relevant to Health Maintenance Care Teams Heating Equipment Installer Relationship Specialty Start Date End Date Jane Ellsworth, MANAGER INSTALLATION [address] [place] [phone] PCP - General 06/24/13
--- OUTSIDE RECORDS SUMMARY | 2023-10-18 12:48 | XMS_ITS | Encounter Summary ---
Author Organization [facility] Address [address] [place] [address] Care Team Providers Care Recreation Officer Name Role Phone Seng Jane Hay PREFABRICATOR Primary Care Provider [phone] Encounter Details Date Type Department Care Team (Late st Contact Info) Description 06/16/2021 Lab Requisition [facility] Pathology & Laboratory Medicine - [address] [address] Outr Resulting Lab, Provider Social History Tobacco [...] Name Priority Date/Time Associated Diagnosis Comments HEPATITIS B SURFACE ANTIBODY Routine 06/16/2021 13:54 EDT documented in this encounter Results * HEPATITIS B SURFACE ANTIBODY (06/16/2021 13:54 EDT) Hep B Surface Ab, Quantitative 5.7 See Note mIU/mL 06/17/2021 9:21 EDT [facility] Comment: Reference Range for Hep B Surface Ab, Quant: Positive: >= 10.0 mIU/mL Negative: ??< 10.0 mIU/mL Patient is presumed to not be immune to infection with Hepatitis B Virus. Hep B Surface Ab, Qualitative Negative See Note 06/17/2021 9:21 EDT [facility] Comment: Reference Range for Hep B Surface Ab, Qual: Unvaccinated: ??Negative Vaccinated: ??Positive Blood VENOUS BLOOD / Unknown 06/16/2021 13:54 EDT 06/16/2021 21:13 EDT Provider Outr Resulting Lab CHEMISTRY & BLOOD GAS ORDERABLES Performing Organization Address City/State/[facility] Co de Phone Number [facility] [address] [place] [address] documented in this encounter Visit Diagnoses Not on filedocumented in this encounter Care Teams Recreation Officer Relationship Specialty Start Date End Date Jane Ellsworth, PREFABRICATOR [address] [place] [phone] PCP - General 06/24/13 documented as of this encounter
--- OUTSIDE RECORDS SUMMARY | 2023-10-18 12:48 | XMS_ITS | Encounter Summary ---
Author Organization [facility] Address [address] [place] [address] Care Team Providers Care Assembly Lead Person Name Role Phone Jane Ellsworth PRODUCT BLENDING SUPERVISOR Primary Care Provider [phone] Encounter Details Date Type Department Care Team (Late st Contact Info) Description 06/17/2021 Lab Requisition [facility] Pathology & Laboratory Medicine - [facility] [address] [place] [address] Outr Resulting Lab, Provider Social History Tobacco [...] Procedure Name Priority Date/Time Associated Diagnosis Comments QUANTIFERON MITOGEN (PERFORMABLE) Today 06/16/2021 13:54 EDT QUANTIFERON TB2 (PERFORMABLE) Today 06/16/2021 13:54 EDT QUANTIFERON TB1 (PERFORMABLE) Today 06/16/2021 13:54 EDT QUANTIFERON NIL (PERFORMABLE) Today 06/16/2021 13:54 EDT QUANTIFERON INTERPRETATION (PERFORMABLE) Today 06/16/2021 13:54 EDT QUANTIFERON TB GOLD PLUS Routine 06/16/2021 13:54 EDT documented in this encounter Results * QUANTIFERON INTERPRETATION (PERFORMABLE) (06/16/2021 13:54 EDT) Quantiferon Interpretation Negative Negative 06/18/2021 12:02 EDT [facility] Comment:No interferon-gamma response to M. tuberculosis antigens was detected. ??Infection with M. tuberculosis is unlikely. A single negative result does not exclude infection with M. tuberculosis. ??In patients at high risk for M. tuberculosis infection, a second test should be considered. TB1 Ag minus Nil 0.01 IU/ml 06/19/19 12:02 EDT [facility] TB2 Ag minus Nil 0.01 IU/mL 06/19/19 12:02 EDT [facility] Blood VENOUS BLOOD / Unknown 06/16/2021 13:54 EDT 06/18/2021 11:46 EDT Narrative [facility] - 06/18/2021 12:02 EDT Results were obtained with the [employer] QuantiFERON-TB Gold Plus CLIA. New platform in use 11/11/2020 Provider Outr Resulting Lab IMMUNOLOGY A ND SEROLOGY ORDERABLES Performing Organization Address [facility] Co de Phone Number [facility] [address] [place] [address] * QUANTIFERON MITOGEN (PERFORMABLE) (06/16/2021 13:54 EDT) Blood VENOUS BLOOD / Unknown 06/16/2021 13:54 EDT 06/17/2021 17:46 EDT Provider Outr Resulting Lab IMMUNOLOGY A ND SEROLOGY ORDERABLES [facility] [address] [place] [address] * QUANTIFERON TB2 (PERFORMABLE) (06/16/2021 13:54 EDT) Blood VENOUS BLOOD / Unknown 06/16/2021 13:54 EDT 06/17/2021 17:46 EDT Provider Outr Resulting Lab IMMUNOLOGY A ND SEROLOGY ORDERABLES Performing Organization Address City/[facility]/ZIP Co de Phone Number [facility] [address] [place] [address] * QUANTIFERON TB1 (PERFORMABLE) (06/16/2021 13:54 EDT) Blood VENOUS BLOOD / Unknown 06/16/2021 13:54 EDT 06/17/2021 17:46 EDT Provider Outr Resulting Lab IMMUNOLOGY A ND SEROLOGY ORDERABLES Performing Organization Address City/[facility] Co de Phone Number [facility] [address] [place] [address] * QUANTIFERON NIL (PERFORMABLE) (06/16/2021 13:54 EDT) Blood VENOUS BLOOD / Unknown 06/16/2021 13:54 EDT 06/17/2021 17:46 EDT Provider Outr Resulting Lab IMMUNOLOGY A ND SEROLOGY ORDERABLES Performing Organization Address [facility] Co de Phone Number [facility] [address] [place] [address] documented in this encounter Visit Diagnoses Not on filedocumented in this encounter Care Teams Assembly Lead Person Relationship Specialty Start Date End Date Jane Ellsworth, CATHRYN [address] [place] [phone] PCP - General 06/24/13 documented as of this encounter
--- OUTSIDE RECORDS SUMMARY | 2023-10-18 12:48 | XMS_ITS | Encounter Summary ---
Author Organization [facility] Address [address] [place] [address] Care Team Providers Care Continuity Coordinator Name Role Phone Seng Jane Hay PLANT CHIEF Primary Care Provider [phone] Encounter Details Date Type Department Care Team (Late st Contact Info) Description 06/24/2020 Lab Requisition [facility] Pathology & Laboratory Medicine - [facility] [address] [place] [address] Outr Resulting Lab, Provider Social History Tobacco [...] Procedure Name Priority Date/Time Associated Diagnosis Comments ZZCOVID-19 TEST [facility] PCR Today 06/23/2020 15:55 EDT COVID-19 TESTING Routine 06/23/2020 15:5 5 EDT documented in this encounter Results * COVID-19 TEST [facility] PCR (06/23/2020 15:55 EDT) Swab ENTIRE NASOPHARYNX / Unknown 06/23/2020 15:55 EDT 06/24/2020 16:22 EDT Provider Outr Resulting Lab MICROBIOLOGY - GENERAL ORDERABLES [facility] [address] [place] [address] * COVID-19 TESTING (06/23/2020 15:55 EDT) COVID-19 rt-PCR Result Negative Negative 06/25/2020 11:47 EDT [facility] Comment: This test has not been FDA cleared or approved. This test has been authorized by FDA under an EUA for use by authorized laboratories. This test has been authorized only for detection of nucleic acid from 2019-nCoV, not for any other viruses or pathogens. This test is only authorized for the duration of the declaration that circumstances exist justifying the authorization of emergency use of in vitro diagnostic tests for detection and/or diagnosis of 2019-nCoV under section 564(b)(1) of Act, 21 U.S.C ?? 360bbb-3(b) (1), unless the authorization is terminated or revoked sooner. Negative results do not preclude 2019-nCoV infection and should not be used as the sole basis for treatment or other patient management decisions. Negative results must be combined with clinical observations, patient history, and epidemiological information. Testing was performed using the lyric SARS-CoV-2 assay ([employer] on the Lyric 6800 System Performing Lab Lyric [address] [facility] Lab 06/25/2020 11:47 EDT [facility] Swab 06/23/2020 15:5 5 EDT 06/24/2020 16:22 EDT Provider Outr Resulting Lab MICROBIOLOGY - GENERAL ORDERABLES [facility] [address] [place] [address] documented in this encounter Visit Diagnoses Not on filedocumented in this encounter Care Teams Continuity Coordinator Relationship Specialty Start Date End Date Jane Ellsworth NP [address] [place] [address] [phone] PCP - General 06/24/13 documented as of this encounter
--- OUTSIDE RECORDS SUMMARY | 2023-10-18 12:48 | XMS_ITS | Encounter Summary ---
Author Organization [facility] Address [address] [place] [address] Care Team Providers Care Pool Manager Name Role Phone Jane Ellsworth CLINICAL PROVIDER TRAINER Primary Care Provider [phone] Encounter Details Date Type Department Care Team (Late st Contact Info) Description 09/09/2021 Lab Requisition [facility] Pathology & Laboratory Medicine - [address] [address] Outr Resulting Lab, Provider Social History Tobacco [...] RNA BY PCR Routine 09/09/2021 14:00 EDT HEPATITIS B SURFACE ANTIGEN Routine 09/09/2021 14:00 EDT documented in this encounter Results * HEPATITIS B SURFACE ANTIGEN (09/09/2021 14:00 EDT) Hep B Surface Ag Negative Negative 09/10/2021 9:37 EDT [facility] Blood VENOUS BLOOD / Unknown 09/09/2021 14:00 EDT 09/09/2021 21:17 EDT Provider Outr Resulting Lab CHEMISTRY & BLOOD GAS ORDERABLES Performing Organization Address City/[facility] Co de Phone Number [facility] [address] [place] [address] * HEPATITIS C AB W REFLEX TO HCV RNA BY PCR (09/09/2021 14:00 EDT) Hep C Antibody Negative Negative 09/10/2021 10:16 EDT [facility] Blood VENOUS BLOOD / Unknown 09/09/2021 14:00 EDT 09/09/2021 21:17 EDT Provider Outr Resulting Lab CHEMISTRY & BLOOD GAS ORDERABLES Performing Organization Address [facility] Co de Phone Number [facility] [address] [place] [address] documented in this encounter Visit Diagnoses Not on filedocumented in this encounter Care Teams Pool Manager Relationship Specialty Start Date End Date Jane Ellsworth NP [address] [place] [phone] PCP - General 06/24/13 documented as of this encounter
--- OUTSIDE RECORDS SUMMARY | 2023-10-18 12:49 | XMS_ITS | Encounter Summary ---
Author Organization [facility] Address [address] [place] [address] Care Team Providers Care Mix House Operator Name Role Phone Jane Ellsworth FISHING TACKLE REPAIRER Primary Care Provider [phone] Encounter Details Date Type Department Care Team (Late st Contact Info) Description 2018 Results Only [facility] [phone] Javid Johnson MD [facility] [address] [place] [address] [phone] Social History Tobacco Use Types Packs/Day Years Used Date Smoking Tobacco: Never Assessed Sex and Gender Information Value Date Recorded Sex Assigned at Not on file Gender Identity Not on file Sexual Orientation Not on file documented as of this encounter Plan of Treatment Not on file documented as of this encounter Procedures Procedure Name Priority Date/Time Associated Diagnosis Comments SURGICAL PATHOLOGY Routine 2018 19 :12 EDT documented in this encounter Results * SURGICAL PATHOLOGY (2018 19:12 EDT) Pathology Report: SURGICAL PATHOLOGY REPORT Reports generated via electronic interface contain original data; however they are lacking the format of the original report. Caution should be taken when reading/interpret ing unformatted reports. Name: ? EVA ALVES ? Accession #: ? [id number] ? : ? 1995 (Age: 23) ??F ? Collect Date: ? 2018 ? Location: ? [facility] ? Receive Date: ? 2018 ? Provider: JAVID JOHNSON MD Copy to: ? Final Pathologic Diagnosis: INTRAUTERINE CONTENTS, EVACUATION: - Products of conception: - Chorionic villi. - Decidualized stroma with focal implantation site changes. - Gestational type endometrium. Document reviewed and electronically signed by: Timothy Gonzalez MD Report ??Date: 08/20/2018 08:10 By the signature above, the attending physician certifies that he/she has personally conducted a gross and/or microscopic examination of the described specimens and rendered or confirmed the above diagnosis. Specimen(s) Received: Products of conception Clinical History: demise Gross Description: ? Received in formalin labelled with proper patient identification (initials R, J) and products of conception are multiple fragments of pink-nunez soft tissue (6.0 x 4.0 x 2.5 cm in aggregate). Chorionic villi are identified. No parts are present. Prepress Technician sections are submitted in 1-3. BRIANA Benjamin (ASCP) 08/16/2018 8:52 AM End of Report [facility] 2018 19:1 2 EDT 2018 19:12 EDT Javid Johnson MD PATHOLOGY ORDERABLES [facility] [address] [place] [address] documented in this encounter Visit Diagnoses Not on filedocumented in this encounter Care Teams Mix House Operator Relationship Specialty Start Date End Date Jane Ellsworth NP [address] [place] [phone] PCP - General 06/24/13 documented as of this encounter
--- OUTSIDE RECORDS SUMMARY | 2023-10-18 12:49 | XMS_ITS | Encounter Summary ---
Author Organization [facility] Address [address] [place] [address] Care Team Providers Care Cheese Production Supervisor Name Role Phone Jane Ellsworth BUNDLE TIER AND LABELER Primary Care Provider [phone] Encounter Details Date Type Department Care Team (Late st Contact Info) Description 06/12/2020 Lab Requisition [facility] Pathology & Laboratory Medicine - [address] [address] Outr Resulting Lab, Provider Social History Tobacco [...] REFLEX TO HCV RNA BY PCR Routine 06/12/2020 12:15 EDT HEPATITIS B SURFACE ANTIGEN Routine 06/12/2020 12:15 EDT documented in this encounter Results * HEPATITIS B SURFACE ANTIGEN (06/12/2020 12:15 EDT) Hep B Surface Ag Negative Negative 06/15/2020 9:[address] [facility] Blood VENOUS BLOOD / Unknown 06/12/2020 12:15 EDT 06/12/2020 16:18 EDT Provider Outr Resulting Lab CHEMISTRY & BLOOD GAS ORDERABLES Performing Organization Address City/[facility]/ZIP Co de Phone Number [facility] [address] [place] [address] * HEPATITIS C AB W REFLEX TO HCV RNA BY PCR (06/12/2020 12:15 EDT) Hep C Antibody Negative Negative 06/15/2020 9:[address] [facility] Blood VENOUS BLOOD / Unknown 06/12/2020 12:15 EDT 06/12/2020 16:18 EDT Provider Outr Resulting Lab CHEMISTRY & BLOOD GAS ORDERABLES Performing Organization Address [facility] Co de Phone Number [facility] [address] [place] [address] documented in this encounter Visit Diagnoses Not on filedocumented in this encounter Care Teams Cheese Production Supervisor Relationship Specialty Start Date End Date Jane Ellsworth NP [address] [place] [phone] PCP - General 06/24/13 documented as of this encounter
--- OUTSIDE RECORDS SUMMARY | 2023-10-18 12:49 | XMS_ITS | Encounter Summary ---
Author Organization [facility] Address [address] [place] [address] Care Team Providers Care Oil Paint Shader Name Role Phone Seng Jane Hay FLOSSER Primary Care Provider [phone] Encounter Details Date Type Department Care Team (Late st Contact Info) Description 08/19/2019 Lab Requisition [facility] Pathology & Laboratory Medicine - [address] [address] Outr Resulting Lab, Provider Social History Tobacco [...] Procedure Name Priority Date/Time Associated Diagnosis Comments DO NOT ORDER STANDALONE - BROAD COVID TEST Today 08/19/2019 8:00 EDT COVID-19 TESTING Routine 08/19/2019 8:00 EDT documented in this encounter Results * DO NOT ORDER STANDALONE - BROAD COVID TEST (08/19/2019 8:00 EDT) COVID-19 rt-PCR Result NEGATIVE Negative 08/20/2019 23:45 EDT [facility] Comment: 2019-novel Coronavirus (2019-nCoV) not detected by the qRT-PCR assay. Consider testing for other respiratory viruses or re-collecting for 2019-nCoV testing. Note: Optimum timing for peak viral levels during infections caused by 2019-nCoV have not been determined. Collection of multiple specimens from the same patient may be necessary to detect the virus. Limitations Positive results are indicative of active infection with SARS-CoV-2 but do not rule out bacterial infection or co-infection with other viruses. The agent detected may not be the definite cause of disease. In addition, detection of viral RNA may not indicate the presence of infectious virus or that SARS-CoV-2 is the causative agent for clinical symptoms. Negative results do not preclude SARS-CoV-2 infection and should not be used as the sole basis for patient management decisions. Negative results must be combined with clinical observations, patient history, and epidemiological information. False negative results may also occur if amplification inhibitors are present in the specimen or if inadequate numbers of organisms are present in the specimen. Optimum specimen types and timing for peak viral levels during infections caused by SARS-CoV-2 have not been fully determined. Collection of multiple specimens (types and time points) from the same patient may be necessary to detect the virus. The test was validated for use with upper respiratory specimens obtained via nasopharyngeal or oropharyngeal swabs in VTM, UTM, M4, M5, M6, saline, and MTM media. The performance of this test has not been established for other specimens. Specimens collected using other FDA recommended Specimen Collection Materials listed in the FDA COVID-19 Diagnostic Technologies communication (May 30, 2019) are processed with the caveat that they were not all validated for use with this test and the result must be interpreted in this context. Furthermore, a false negative results may occur if a specimen is improperly collected, transported or handled. If the virus mutates in the RT-PCR target region, SARS-CoV-2 may not be detected or may be detected less predictably. Inhibitors or other types of interference may produce a false negative result. An interference study evaluating the effect of common cold medications was not performed. This test is not FDA-cleared but its performance characteristics were established by our CLIA-certified, CAP-accredited, high complexity laboratory in accordance with CLIA regulations, College of [place] [employer] (CAP) guidelines (May 23, 2019), and FDA guidance (May 04, 2019). This test is only for use under the Food and Drug Administration's Emergency Use Authorization. Swab ENTIRE NASOPHARYNX / Unknown 08/19/2019 8:00 EDT 08/19/2019 18:46 EDT Provider Outr Resulting Lab MICROBIOLOGY - GENERAL ORDERABLES [facility] [place] * COVID-19 TESTING (08/19/2019 8:00 EDT) COVID-19 rt-PCR Result NEGATIVE Negative 08/21/2019 7:34 EDT [facility] Comment: 2019-novel Coronavirus (2019-nCoV) not detected by the qRT-PCR assay. Consider testing for other respiratory viruses or re-collecting for 2019-nCoV testing. Note: Optimum timing for peak viral levels during infections caused by 2019-nCoV have not been determined. Collection of multiple specimens from the same patient may be necessary to detect the virus. Limitations Positive results are indicative of active infection with SARS-CoV-2 but do not rule out bacterial infection or co-infection with other viruses. The agent detected may not be the definite cause of disease. In addition, detection of viral RNA may not indicate the presence of infectious virus or that SARS-CoV-2 is the causative agent for clinical symptoms. Negative results do not preclude SARS-CoV-2 infection and should not be used as the sole basis for patient management decisions. Negative results must be combined with clinical observations, patient history, and epidemiological information. False negative results may also occur if amplification inhibitors are present in the specimen or if inadequate numbers of organisms are present in the specimen. Optimum specimen types and timing for peak viral levels during infections caused by SARS-CoV-2 have not been fully determined. Collection of multiple specimens (types and time points) from the same patient may be necessary to detect the virus. The test was validated for use with upper respiratory specimens obtained via nasopharyngeal or oropharyngeal swabs in VTM, UTM, M4, M5, M6, saline, and MTM media. The performance of this test has not been established for other specimens. Specimens collected using other FDA recommended Specimen Collection Materials listed in the FDA COVID-19 Diagnostic Technologies communication (May 30, 2019) are processed with the caveat that they were not all validated for use with this test and the result must be interpreted in this context. Furthermore, a false negative results may occur if a specimen is improperly collected, transported or handled. If the virus mutates in the RT-PCR target region, SARS-CoV-2 may not be detected or may be detected less predictably. Inhibitors or other types of interference may produce a false negative result. An interference study evaluating the effect of common cold medications was not performed. This test is not FDA-cleared but its performance characteristics were established by our CLIA-certified, CAP-accredited, high complexity laboratory in accordance with CLIA regulations, College of [place] Pathologists (CAP) guidelines (May 23, 2019), and FDA guidance (May 04, 2019). This test is only for use under the Food and Drug Administration's Emergency Use Authorization. Performing Lab [facility] 08/21/2019 7:34 EDT [facility] Swab ENTIRE NASOPHARYNX / Unknown 08/19/2019 8:00 EDT 08/19/2019 18:46 EDT Provider Outr Resulting Lab MICROBIOLOGY - GENERAL ORDERABLES [facility] [address] [place] [address] [facility] [place], [place] documented in this encounter Visit Diagnoses Not on filedocumented in this encounter Care Teams Oil Paint Shader Relationship Specialty Start Date End Date Jane Ellsworth NP [address] [place] [phone] PCP - General 06/24/13 documented as of this encounter
--- OUTSIDE RECORDS SUMMARY | 2023-10-18 12:49 | XMS_ITS | Encounter Summary ---
Author Organization [facility] Address [address] [place] [address] Care Team Providers Care Triage Technician Name Role Phone Unknown, Provider Primary Care Provider [phone] Encounter Details Date Type Department Care Team (Late st Contact Info) Description 06/19/2013 Results Only [facility]- [facility] [phone] Javid Johnson MD [facility] [facility] [address] [place], [place] [address] Social History Tobacco Use Types Packs/Day Years Used Date Smoking Tobacco: Never Assessed Sex and Gender Information Value Date Recorded Sex Assigned at Not on file Gender Identity Not on file Sexual Orientation Not on file documented as of this encounter Plan of Treatment Not on file documented as of this encounter Procedures Procedure Name Priority Date/Time Associated Diagnosis Comments SURGICAL PATHOLOGY Routine 06/19/2013 22 :41 EDT documented in this encounter Results * SURGICAL PATHOLOGY (06/19/2013 22:41 EDT) Pathology Report: SURGICAL PATHOLOGY REPORT Reports generated via electronic interface contain original data; however they are lacking the format of the original report. Caution should be taken when reading/interpreti ng unformatted reports. Name: ? EVA ALVES ? Accession #: ? [id number] ? : ? 1995 (Age: 17) ??F ? Collect Date: ? 06/19/2013 ? Location: ? [facility] ? Receive Date: ? 06/19/2013 ? Provider: JAVID JOHNSON MD Copy to: AUGUSTINE MEDEROS WATER METER READER ? Final Pathologic Diagnosis: PRODUCTS OF CONCEPTION: - ?? tissue. - ??3-vessel umbilical cord with no specific histopathologic diagnosis. - ?? membranes with no specific histopathologic diagnosis. - ??Vascularized chorionic villi with no specific histopathologic diagnosis. - ??Decidualized stroma with no specific histopathologic diagnosis. Document reviewed and electronically signed by: Timohty Gonzalez MD Report ??Date: 06/21/2013 20:10 By the signature above, the attending physician certifies that he/she has personally conducted a gross and/or microscopic examination of the described specimens and rendered or confirmed the above diagnosis. Specimen(s) Received: Products of conception Clinical History: demise at 12 wks Gross Description: ? Received in formalin labelled with proper patient identification (initials R, J) and products of conception is an aggregate of pink-nunez and nunez-red tissue and blood clot (11.5 x 9.0 x 3.0 cm) containing villous tissue, gestational sac, and fragments of tissue, which includes bilateral upper and lower extremities, each with five digits. ??The foot length is 0.7 cm. Possible internal organs are also identified. ??The umbilical cord is present (7.0 cm in length x 0.2 cm in diameter), but the number of vessels cannot be grossly determined. Broommaker sections are submitted in cassettes 1-3. Hilaria Sanchez 06/20/2013 09:36 AM End of Report [facility] 06/19/2013 22:4 1 EDT 06/19/2013 22:41 EDT Javid Johnson MD PATHOLOGY ORDERABLES [facility] [address] [place] [address] documented in this encounter Visit Diagnoses Not on filedocumented in this encounter Care Teams Triage Technician Relationship Specialty Start Date End Date Unknown, Provider, PCP - General 06/19/13 06/23/13 documented as of this encounter
--- OUTSIDE RECORDS SUMMARY | 2023-10-18 12:49 | XMS_ITS | Encounter Summary ---
Author Organization [facility] Address [address] [place] [address] Care Team Providers Care Voting Machine Repairer Name Role Phone Jane Ellsworth SAMPLE CLERK Primary Care Provider [phone] Encounter Details Date Type Department Care Team (Late st Contact Info) Description 12/25/2019 Lab Requisition [facility] Pathology & Laboratory Medicine - [address] [address] Outr Resulting Lab, Provider Social History Tobacco [...] Diagnosis Comments DO NOT ORDER STANDALONE - MARTHA COVID TESTING Today 12/25/2019 13:05 EDT COVID-19 TESTING Routine 12/25/2019 13:0 5 EDT documented in this encounter Results * DO NOT ORDER STANDALONE - MARTHA COVID TESTING (12/25/2019 13:05 EDT) COVID-19 rt-PCR Result Not Detected Not Detected 12/26/2019 16:[address] [facility] Comment: This test has not been FDA cleared or approved. This test has been authorized by FDA under an EUA for use by authorized laboratories. ??This test has been authorized only for the detection of nucleic acid from SARS-CoV-2, not for any other viruses or pathogens. ??This test is only authorized for the duration of the declaration that circumstances exist justifying the authorization of emergency use of in vitro diagnostic tests for detection and/or diagnosis of COVID-19 under Section 564(b)(1) of the Act, 21 U.S.C. Section 360bbb-3(b)(1), unless the authorization is terminated or revoked sooner. ??Factsheets for healthcare providers: ??https://www.fda.gov/media/860758/download Factsheets for patients: https://www.fda.gov/media/606082/download Negative results do not preclude infection with SARS-CoV-2 virus, and should not be the sole basis of a patient management decision. Swab ENTIRE NASOPHARYNX / Unknown 12/25/2019 13:05 EDT 12/25/2019 22:38 EDT Provider Outr Resulting Lab MICROBIOLOGY - GENERAL ORDERABLES Performing Organization Address City/State/[facility] Co de Phone Number [facility] [address] [place] [address] * COVID-19 TESTING (12/25/2019 13:05 EDT) COVID-19 rt-PCR Result Not Detected Not Detected 12/26/2019 16:[address] [facility] Comment: This test has not been FDA cleared or approved. This test has been authorized by FDA under an EUA for use by authorized laboratories. ??This test has been authorized only for the detection of nucleic acid from SARS-CoV-2, not for any other viruses or pathogens. ??This test is only authorized for the duration of the declaration that circumstances exist justifying the authorization of emergency use of in vitro diagnostic tests for detection and/or diagnosis of COVID-19 under Section 564(b)(1) of the Act, 21 U.S.C. Section 360bbb-3(b)(1), unless the authorization is terminated or revoked sooner. ??Factsheets for healthcare providers: ??https://www.fda.gov/media/700608/download Factsheets for patients: https://www.fda.gov/media/885198/download Negative results do not preclude infection with SARS-CoV-2 virus, and should not be the sole basis of a patient management decision. Performing Lab [facility] 12/26/2019 16:52 EDT [facility] Swab 12/25/2019 13:0 5 EDT 12/25/2019 22:38 EDT Provider Outr Resulting Lab MICROBIOLOGY - GENERAL ORDERABLES [facility] [address] LABORATORY [address] [place] [address] documented in this encounter Visit Diagnoses Not on filedocumented in this encounter Care Teams Voting Machine Repairer Relationship Specialty Start Date End Date Jane Ellsworth NP [address] [place] [phone] PCP - General 06/24/13 documented as of this encounter
--- OUTSIDE RECORDS SUMMARY | 2023-10-18 12:49 | XMS_ITS | Encounter Summary ---
Author Organization [facility] Address [address] [place] [address] Care Team Providers Care Circuit Recorder Name Role Phone Jane Ellsworth [address] POLICE OFFICER Primary Care Provider [phone] Encounter Details Date Type Department Care Team (Late st Contact Info) Description 06/12/2020 Lab Requisition [facility] Pathology & Laboratory Medicine - [facility] [address] [place] [address] Outr Resulting Lab, Provider Social History Tobacco [...] Comments CHLAMYDIA/N. GONORRHOEAE AMPLIFIED NUCLEIC ACID Routine 06/12/2020 11:30 EDT documented in this encounter Results * CHLAMYDIA/N. GONORRHOEAE AMPLIFIED RNA (06/12/2020 11:30 EDT) Neisseria gonorrhoeae Result Negative Negative 06/15/2020 16:58 EDT [facility] Chlamydia trachomatis Result Negative Negative 06/15/2020 16:58 EDT [facility] Swab ENTIRE ENDOCERVIX / Unknown 06/12/2020 11:30 EDT 06/12/2020 21:52 EDT Provider Outr Resulting Lab MICROBIOLOGY - GENERAL ORDERABLES [facility] [address] [place] [address] documented in this encounter Visit Diagnoses Not on filedocumented in this encounter Care Teams Circuit Recorder Relationship Specialty Start Date End Date Jane Ellsworth, CATHRYN [address] [place] [phone] PCP - General 06/24/13 documented as of this encounter
--- OUTSIDE RECORDS SUMMARY | 2023-10-18 12:49 | XMS_ITS | Encounter Summary ---
Author Organization [facility] Address [address] [place] [address] Care Team Providers Care Stone Banker Name Role Phone Jane Ellsworth BROADLOOM WEAVER Primary Care Provider [phone] Encounter Details Date Type Department Care Team (Late st Contact Info) Description 06/03/2019 Lab Requisition [facility] Pathology & Laboratory Medicine - [address] [address] Earnest Ochoa MD [address] [place] [phone] Complete or unspecified spontaneous without complication Social History Tobacco Use Types Packs/Day Years Used Date Smoking Tobacco: Never Assessed Sex and Gender Information Value Date Recorded Sex Assigned at Not on file Gender Identity Not on file Sexual Orientation Not on file documented as of this encounter Plan of Treatment Not on file documented as of this encounter Procedures Procedure Name Priority Date/Time Associated Diagnosis Comments SURGICAL PATHOLOGY Today 06/03/2019 9: 18 EDT Complete or unspecified spontaneous without complication documented in this encounter Results * SURGICAL PATHOLOGY (06/03/2019 9:18 EDT) Final Diagnosis A. INTRAUTERINE CONTENTS, EVACUATION: - Chorionic villi, somatic elements, and decidua. 06/05/2019 14:10 EDT [facility] at 1410 Attestation By the signature below, the attending physician certifies that they have 1) personally conducted a gross and/or microscopic examination of the described specimen(s), and/or personally interpreted the results of laboratory testing of the described specimen(s), and 2) personally rendered or confirmed the above diagnosis. 06/05/2019 14:10 EDT [facility] at 1410 Clinical History Spontaneous 06/05/2019 14:10 EDT [facility] Gross Description A. Received in formalin labelled with proper patient identification (initials R, J) and products of conception are multiple irregular to papilliferous nunez-brown tissue fragments with minimal admixed blood clot aggregating 6.5 x 6.0 x 1.4 cm. structures are grossly identified. Structural Engineer sections are submitted in A 1-A3. Jolly Paulino 06/04/2019 9:23 06/05/2019 14:10 EDT [facility] Scanned Images 06/05/2019 14:10 EDT [facility] Tissue PRODUCTS OF CONCEPTION TISSUE SPECIMEN / Unknown 06/03/2019 9:18 EDT 06/03/2019 17:22 EDT Earnest Ochoa MD PATHOLOGY ORDERABLES [facility] [address] [place] [address] documented in this encounter Visit Diagnoses Diagnosis Complete or unspecified spontaneous without complication documented in this encounter Care Teams Stone Banker Relationship Specialty Start Date End Date Jane Ellsworth NP [address] [place] [phone] PCP - General 06/24/13 documented as of this encounter
--- OUTSIDE RECORDS SUMMARY | 2023-10-18 12:49 | XMS_ITS | Encounter Summary ---
Author Organization [facility] Address [address] [place] [id number] Care Team Providers Care Boat Engine Mechanic Name Role Phone Jane Ellsworth FIRE PREVENTION ENGINEER Primary Care Provider Encounter Details Date Type Department Care Team (Latest Contact Info) Description 2018 12:22 EDT - 2018 23:59 EDT Hospital Encounter [address] [address] Unknown, Provider, Discharge Disposition: Home or Self Care Social History Tobacco Use Types Packs/Day Years Used Date Smoking Tobacco: Never Assessed Sex and Gender Information Value Date Recorded Sex Assigned at Not on file Gender Identity Not on file Sexual Orientation Not on file documented as of this encounter Discharge Disposition Disposition Code Departure Means Destination Home or Self Fci documented in this encounter Plan of Treatment Not on file documented as of this encounter Visit Diagnoses Not on filedocumented in this encounter Care Teams Boat Engine Mechanic Relationship Specialty Start Date End Date Jane Ellsworth NP [address] [place] [phone] PCP - General 06/24/13 documented as of this encounter
--- OUTSIDE RECORDS SUMMARY | 2023-10-18 12:49 | XMS_ITS | Encounter Summary ---
Author Organization [facility] Address [address] [place] [address] Care Team Providers Care Events Traffic Controller Name Role Phone Jane Ellsworth OPERATIONS SUPERVISOR CHEMICAL CLEANING Primary Care Provider [phone] Encounter Details Date Type Department Care Team (Late st Contact Info) Description 06/12/2020 Lab Requisition [facility] Pathology & Laboratory Medicine - [address] [address] Outr Resulting Lab, Provider Social History Tobacco [...] Associated Diagnosis Comments RUBELLA IGG ANTIBODY Routine 06/12/2020 12:15 EDT VARICELLA IGG ANTIBODY Routine 06/12/2020 12:15 EDT documented in this encounter Results * VARICELLA IGG ANTIBODY (06/12/2020 12:15 EDT) Varicella IgG Ab Positive See Note 06/15/2020 10:04 EDT [facility] Comment:Presence of detectab le Varicella Zoster virus IgG antibodies. Blood VENOUS BLOOD / Unknown 06/12/2020 12:15 EDT 06/12/2020 16:10 EDT Provider Outr Resulting Lab IMMUNOLOGY A ND SEROLOGY ORDERABLES Performing Organization Address City/[facility]/ZIP Co de Phone Number [facility] [address] [place] [address] * RUBELLA IGG ANTIBODY (06/12/2020 12:15 EDT) Rubella IgG Ab Positive See Note 06/15/2020 10:08 EDT [facility] Comment:Positive for IgG ant ibodies to Rubella virus. Blood VENOUS BLOOD / Unknown 06/12/2020 12:15 EDT 06/12/2020 16:10 EDT Provider Outr Resulting Lab CHEMISTRY & BLOOD GAS ORDERABLES Performing Organization Address [facility] Co de Phone Number [facility] [address] [place] [address] documented in this encounter Visit Diagnoses Not on filedocumented in this encounter Care Teams Events Traffic Controller Relationship Specialty Start Date End Date Jane Ellsworth NP [address] [place] [address] [phone] PCP - General 06/24/13 documented as of this encounter
--- OUTSIDE RECORDS SUMMARY | 2023-10-18 12:49 | XMS_ITS | Encounter Summary ---
Author Organization [facility] Address [address] [place] [address] Care Team Providers Care Risk Consulting Treasury Director Name Role Phone Unknown, Provider Primary Care Provider [phone] Encounter Details Date Type Department Care Team (Latest Contact Info) Description 06/19/2013 10:04 EDT - 06/19/2013 23:59 EDT Hospital Encounter [facility] - [facility] Building [phone] Unknown, ProviderMD Discharge Disposition: Home or Self Care Social History Tobacco Use Types Packs/Day Years Used Date Smoking Tobacco: Never Assessed Sex and Gender Information Value Date Recorded Sex Assigned at Not on file Gender Identity Not on file Sexual Orientation Not on file documented as of this encounter Discharge Disposition Disposition Code Departure Means Destination Home or Self Intermediate documented in this encounter Plan of Treatment Not on file documented as of this encounter Visit Diagnoses Not on filedocumented in this encounter Care Teams Risk Consulting Treasury Director Relationship Specialty Start Date End Date Unknown, ProviderMD PCP - General 06/19/13 06/23/13 documented as of this encounter
--- OUTSIDE RECORDS SUMMARY | 2023-10-18 12:49 | XMS_ITS | Encounter Summary ---
Author Organization [facility] Address [address] [place] [address] Care Team Providers Care Counsellors Name Role Phone Jane Ellsworth WOOD DRILL OPERATOR Primary Care Provider [phone] Encounter Details Date Type Department Care Team (Late st Contact Info) Description 06/12/2020 Lab Requisition [facility] Pathology & Laboratory Medicine - [address] [address] Outr Resulting Lab, Provider Social History Tobacco [...] 1/2 ANTIGEN AND ANTIBODY, 4TH GENERATION Routine 06/12/2020 12:15 EDT documented in this encounter Results * HIV 1/2 ANTIGEN AND ANTIBODY, 4TH GENERATION (06/12/2020 12:15 EDT) HIV 1 and 2 Antibody/p24 Antigen, 4th Generation Negative Negative 06/15/2020 9:43 EDT [facility] Comment: If acute HIV-1 infection is suspected in a high risk ??patient, submit plasma specimen for HIV-1 RNA quantitation test. Fourth Generation assay performed on the Siemens Actifiaur. Blood VENOUS BLOOD / Unknown 06/12/2020 12:15 EDT 06/12/2020 16:10 EDT Provider Outr Resulting Lab IMMUNOLOGY A ND SEROLOGY ORDERABLES [facility] [address] [place] [address] documented in this encounter Visit Diagnoses Not on filedocumented in this encounter Care Teams Counsellors Relationship Specialty Start Date End Date Jane Ellsworth, CATHRYN [address] [place] [phone] PCP - General 06/24/13 documented as of this encounter
--- OUTSIDE RECORDS SUMMARY | 2023-10-18 12:49 | XMS_ITS | Encounter Summary ---
Author Organization [facility] Address [address] [place] [address] Care Team Providers Care Gutter Hanger Name Role Phone Seng Jane Hay CROSSBAR FRAME WIRER Primary Care Provider [phone] Encounter Details Date Type Department Care Team (Late st Contact Info) Description 07/27/2019 Lab Requisition [facility] Pathology & Laboratory Medicine - [address] [id number] Outr Resulting Lab, Provider Social History Tobacco [...] Comments ZZCOVID-19 TEST [facility] PCR Today 07/27/2019 7:00 EDT COVID-19 TESTING Routine 07/27/2019 7:00 EDT documented in this encounter Results * COVID-19 TEST [facility] PCR (07/27/2019 7:00 EDT) Swab ENTIRE NASOPHARYNX / Unknown 07/27/2019 7:00 EDT 07/27/2019 21:49 EDT Provider Outr Resulting Lab MICROBIOLOGY - GENERAL ORDERABLES [facility] [address] [place] [address] * COVID-19 TESTING (07/27/2019 7:00 EDT) COVID-19 rt-PCR Result Negative Negative 07/28/2019 1:52 EDT [facility] Comment: This test has [...] clinical observations, patient history, and epidemiological information. Performed on the [employer] instrument Performing Lab [place] [facility] Lab 07/28/2019 1:52 EDT [facility] Swab ENTIRE NASOPHARYNX / Unknown 07/27/2019 7:00 EDT 07/27/2019 21:49 EDT Provider Outr Resulting Lab MICROBIOLOGY - GENERAL ORDERABLES [facility] [address] [place] [address] documented in this encounter Visit Diagnoses Not on filedocumented in this encounter Care Teams Gutter Hanger Relationship Specialty Start Date End Date Jane Ellsworth NP [address] [phone] PCP - General 06/24/13 documented as of this encounter
--- OUTSIDE RECORDS SUMMARY | 2023-10-18 12:49 | XMS_ITS | Encounter Summary ---
Author Organization [facility] Address [address] [place] [address] Care Team Providers Care Edge Worker Name Role Phone Seng Jane Satnam PARTS IDENTIFICATION TECHNICIAN Primary Care Provider [phone] Encounter Details Date Type Department Care Team (Late st Contact Info) Description 06/04/2019 Lab Requisition [facility] Pathology & Laboratory Medicine - [address] [address] Earnest Ochoa MD [address] [place] [address] Complete or unspecified spontaneous without complication Social [...] Procedure Name Priority Date/Time Associated Diagnosis Comments CHROMOSOME ANALYSIS - LAB USE ONLY Today 06/03/2019 9:18 EDT Complete or unspecified spontaneous without complication CHROMOSOME ANALYSIS Today 06/03/2019 9 :18 EDT Complete or unspecified spontaneous without complication documented in this encounter Results * CHROMOSOME ANALYSIS - LAB USE ONLY (06/03/2019 9:18 EDT) Tissue PRODUCTS OF CONCEPTION TISSUE SPECIMEN / Unknown 06/03/2019 9:18 EDT 06/19/2019 8:24 EDT Earnest Ochoa MD LAB MOLECULAR ORDERA BLES [facility] [address] [place] [address] * CHROMOSOME ANALYSIS (06/03/2019 9:18 EDT) CYTOGENETICS INTERPRETATION Products of conception with a normal female karyotype. 06/26/2019 9:[address] [facility] Comment In 46,XX products of conception, maternal cell contamination is possible. 06/26/2019 9:03 [facility] Attestation By the signature below, the attending physician certifies that they have 1) personally conducted a gross and/or microscopic examination of the described specimen(s), and/or personally interpreted the results of laboratory testing of the described specimen(s), and 2) personally rendered or confirmed the above diagnosis. 06/26/2019 9:[address] [facility] at 0903 Clinical History 8 week SAB, recurrent loss 06/26/2019 9:[address] [facility] Testing Performed G-banded karyotype 06/26/2019 9:03 [facility] Report Cells counted: 20, Analyzed: 5, Karyotyped: 5, Band resolution: 400 06/26/2019 9:[address] [facility] Karyotype 46,XX 06/26/2019 9:[address] [facility] Scanned Images 06/26/2019 9:03 [facility] Tissue PRODUCTS OF CONCEPTION TISSUE SPECIMEN / Unknown 06/03/2019 9:18 EDT 06/04/2019 8:07 EDT Earnest Ochoa MD PATHOLOGY ORDERABLES [facility] [address] [place] [address] documented in this encounter Visit Diagnoses Diagnosis Complete or unspecified spontaneous without complication documented in this encounter Care Teams Edge Worker Relationship Specialty Start Date End Date Jane Ellsworth NP [address] [place] [phone] PCP - General 06/24/13 documented as of this encounter
--- NOTE | 2023-10-18 15:34 | ED.GENADUL_ITS ---
Discharge Plan Disposition Patient Disposition: Eloped Condition: Stable Discharge Details Clinical Impression: Substance use disorder Primary Care Provider: Nidia Howard ED Provider: Wesley Kevin Home Meds and New Rx's Prescriptions: No Action ondansetron 4 mg tablet,disintegrating 4 mg PO Q6H PRN (Reason: nausea and vomiting) Qty: 10 0RF Discharge Instructions Additional Instructions: * HPI General Date/Time Provider Initiated Documentation: 10/18/23 11:37 . Limitations to Documentation: no limitations . Information obtained by: patient . HPI Narrative: 48-year-old female with past medical history of polysubstance substance use disorder presents for evaluation requesting help with opiate withdrawal. She states that she normally gets methadone from the [facility], but has not had transportation in the last 11 days so she has not been. She states that during this time she has been smoking fentanyl. States that she takes 10 bags of fentanyl every day. She reports chills, body aches and diarrhea. She tried to go to [facility] clinic today, but they were already closed. She denies any SI or HI. Denies any alcohol use or other drugs besides fentanyl. Related Data Home Medications ?Medication ?Instructions ?Recorded ?Confirmed ondansetron 4 mg disintegrating 4 mg PO Q6H PRN nausea and 03/14/22 tablet vomiting #10 tabs Previous Rx's ?Medication ?Instructions ?Recorded ondansetron 4 mg disintegrating 4 mg PO Q6H PRN nausea and 03/14/22 tablet vomiting #10 tabs Allergies Allergy/AdvReac Type Severity Reaction Status Date / Time banana Allergy Hives Verified 10/18/23 11:38 General Stated Complaint: DrugWithdr/MAT RANDEE: 2 Exam Narrative Exam Narrative: Review of Systems: All systems reviewed & are unremarkable except as noted in HPI and below Well-developed, agitated, curled up into a ball NCAT PERRL, normal conjunctiva RRR no hypertension Unlabored respiratory effort Nondistended abdomen Extremities w/o deformity, no cyanosis, no edema No rashes or lesions. no focal neurologic deficits Appropriate mood and affect Course Vital Signs Vital signs: Vital Signs Temperature 36.3 C L 10/18/23 11:35 Pulse 107 H 10/18/23 11:35 Respiratory Rate 20 10/18/23 11:35 Blood Pressure 115/69 10/18/23 11:35 Pulse Oximetry 93 10/18/23 11:35 Temperature 36.3 C L 10/18/23 11:35 Pulse 107 H 10/18/23 11:35 Respiratory Rate 20 10/18/23 11:35 Blood Pressure 115/69 10/18/23 11:35 Pulse Oximetry 93 10/18/23 11:35 Oxygen Delivery Method Room Air 10/18/23 11:35 Oxygen Flow Rate 0 10/18/23 11:35 Pain Level 10 10/18/23 11:35 Medical Decision Making Emergent evaluation of opiate use disorder. Last use 2 days ago. Has not had methadone in 11 days. States that she is stopped with the fentanyl 2 days ago because she ran out of money. Today was the first day that she was able to get a ride into town to go to [facility], but by the time she arrived they were already closed so she came here. She has no infectious symptoms. She denies any drug use besides opiates so I do not suspect any concurrent toxidrome or other withdrawal symptoms. She denies any SI or HI some not worried about involving mental health services. Patient was given a dose of methadone. Shortly afterwards, she eloped from the emergency department prior to reevaluation. I was unable to provide the patient with follow-up plan community resources or Narcan prior to her leaving. Quality:SDOH Health Related Social Needs: No Data to Display PFSH All Active Problems Substance use disorder (Acute) Term delivered (Acute) Anemia (Chronic) GERD (gastroesophageal reflux disease) (Chronic) Marijuana use (Acute) Depression (Chronic 11/24/11) chronic depressed mood Anxiety (Acute 03/28/12) Medical History Uterine contractions COVID-19 affecting in second trimester Vaginal discharge during Abscess, dental Previous recurrent miscarriages affecting , antepartum Idiopathic scoliosis (10/27/11) Tobacco abuse Heart murmur (10/27/11) innocent Asthma outgrown Recurrent acute otitis media outgrown Genitourinary Chlamydia infection 12/14,02/13 and 05/15 BV (bacterial vaginosis) 04/07/15. Rx with Metronidazole. 06/30/15 Rx with PO Metronidazole Surgical History Status post dilation and curettage 08/15/18; Missed AB at ~8 weeks Dilation and curettage (06/19/13) for embryonic demise at 12w EGA. Family History Mother Anxiety Depression Hypertension Father Anxiety Depression Hypertension Grandmother Mental disorder anxiety/depression Diabetes Sister Asthma COPD (chronic obstructive pulmonary disease) Maternal Aunt Cancer lung and mouth / oral cancer passed age 32 Paternal Uncle Colon cancer Maternal Grandfather Heart disease Stroke Other Idiopathic scoliosis Social History Smoking/Tobacco Use Status: Former Tobacco Use Smoking risk assessment performed?: Yes Alcohol Intake: former Drug use: Never Substance use type: does not use Details: 5-6 cigarettes per day Adopted: No Caregiver/Support person: No Foster care: No Do you need help understanding health information?: Often 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 Date GA/Weeks # Preg Succ Route Wgt Sex Labor Lgth Anesth esia Location [facility] 06/19/[address] Shannan norton 08/15/18 8 Jd Coles 05/29/[address] Ochoa 12/10/20 39 No vaginal 3324.832 g Female 23 hrs 45 min any Rainey CNM 01/16/22 38 No Yes vaginal 3155.018 g Male 3 hrs 27min ESTELLE Rainey Delivery Date: 06/19/13 Last Updated by: Mirella Kasper M.D. MAB ~12wks; D&C Delivery Date: 08/15/18 Last Updated by: Mirella Kasper M.D. MAB at ~ 8 weeks; D&C Delivery Date: 05/29/19 Last Updated by: Mirella Kasper M.D. MAB at 10.2 weeks; D&C Delivery Date: 12/10/20 Last Updated by: MILLY Ruff Delivery Date: 01/16/22 Last Updated by: MILLY Ruff; Dark Meconium stain
== END 2023-10-18 12:23 | disposition left against medical advice (07) ==
LOC: ER 12:47
PROVIDERS: Emergency Provider Emergency Medicine; PCP Nurse Practitioner
DX: F11.93 Opioid use, unspecified with withdrawal (principal)
CPT/HCPCS: 99283; 99284

== ENCOUNTER 2024-09-14 09:02 | Emergency (ER) | payer MEDICAID, SELFPAY ==
[2024-09-14 09:09] VITALS: BP 130/77; PULSE 84; RESP 18
--- NOTE | 2024-09-14 09:37 | DI.CT_ITS ---
Exam(s) CT ABDOMEN PELVIS W EXAM: CT ABDOMEN PELVIS W CLINICAL HISTORY: epigastric abd pain, constipation, blood streaked. TECHNIQUE: Imaging Protocol: Axial computed tomography images with coronal and sagittal reformatted images were created and reviewed CONTRAST MATERIAL: Intravenous: Omnipaque 350 Contrast volume:7 ml Oral: no COMPARISON: No exams were available for comparison FINDINGS: ABDOMEN and PELVIS: Lung Bases: No acute findings. Liver: Mild hepatic steatosis.. No suspicious mass. Gallbladder and biliary tract: No radiodense calculus. No wall thickening or pericholecystic fluid. No biliary dilation. Pancreas: Normal density. No abnormal calcifications or inflammatory process. No evidence of mass. Spleen: Normal. Kidneys: Normal size, contour and axis. No radiodense stones. No obstructive uropathy. No suspicious masses seen. Adrenal glands: No masses seen. Vasculature: Abdominal aorta non-dilated. Soft tissues: Unremarkable. Bladder: No gross wall thickening. No calculi.No focal mass. Bowel: There is a large quantity of stool seen throughout the colon consistent with constipation. No obstruction. No bowel wall thickening. Appendix normal. Peritoneal cavity: Trace pelvic fluid. No focal collection. No mesenteric inflammatory response. No free air. Bones: Unremarkable for age. Reproductive organs: Unremarkable. Collapsed follicle on the right ovary. Lymph nodes: No pathologically enlarged lymph nodes. IMPRESSION:: Large quantity of stool throughout the colon consistent with constipation. No bowel wall thickening. The preliminary [facility] report was reviewed. RADIATION DOSE DELIVERED: Total DLP DATA REPOSITORY: All CT scans at this facility are submitted to the National Radiology Data Registry (NRDR) Dose Index Registry (DIR) with the [employer] (ACR). RADIATION OPTIMIZATION: All CT scans at this facility use at least one of these dose optimization techniques: automated exposure control; mA and/or kV adjustment per patient size (includes targeted exams where dose is matched to clinical indication); or iterative reconstruction.
--- NOTE | 2024-09-14 09:43 | ED.GENADUL_ITS ---
Discharge Plan Disposition Patient Disposition: Home Condition: Stable Discharge Details Clinical Impression: Abdominal pain, Nausea & vomiting, Constipation, Ovarian cyst rupture Primary Care Provider: Nidia Howard ED Provider: Va Nair Home Meds and New Rx's Prescriptions: New polyethylene glycol 3350 [Miralax] 17 gram/dose powder 17 g PO DAILY Qty: 119 0RF senna 8.6 mg capsule 8.6 mg PO DAILY Qty: 30 0RF ondansetron 4 mg tablet,disintegrating 4 mg PO Q8H PRNQty: 10 0RF No Action ondansetron 4 mg tablet,disintegrating 4 mg PO Q6H PRN (Reason: nausea and vomiting) Qty: 10 0RF Discharge Instructions Instructions: Abdominal Pain, Adult ED Additional Instructions: You were seen in the emergency department today for evaluation of nausea with vomiting and constipation and abdominal pain. In our department had a full physical examination performed, had reassuring laboratory studies and had a CT scan that showed severe constipation as well as a likely ovarian cyst that has ruptured. It is safe for you to go home and continue to utilize medications to soften your stools. A prescription for MiraLAX and senna was sent, you should take these medications starting 1 time daily and adjust doses so that you are passing 1 soft (toothpaste consistency) stool per day. I have also refilled your Zofran which you can use as needed for nausea to help you maintain your hydration. Please follow-up with your primary care provider in the next few days to discuss this visit and any symptoms that change, worsen, or persist. Thank you for allowing us to be part of your care. Discharge Data Discharge Date/Time-TO BE ENTERED AT DEPARTURE: 09/14/24 12:08 HPI General Mode of arrival: ambulatory . Date/Time Provider Initiated Documentation: 09/14/24 09:06 . Limitations to Documentation: no limitations . Information obtained by: patient, family and old records reviewed . HPI Narrative: This is a 37-year-old female patient with a past medical history significant for anemia, GERD, depression and anxiety, marijuana use, opioid use disorder in remission on methadone maintenance therapy, who is presenting for evaluation of abdominal pain, nausea with vomiting and constipation. The patient reports that she has constipation at baseline, states that she has not passed the stool in 1 month. She reports that she is still passing gas, has not been taking any stool softeners. She developed epigastric abdominal pain approximately 2 or 3 days ago, which is associated with intermittent nausea and vomiting. She has noted some streaks of blood in her subsequent episodes of vomiting, states that she does not have any Zofran left at home for treatment of the symptoms. She reports that she has never had any abdominal surgeries, denies urinary symptoms, states that she is not currently using anything for prevention but has not had sex recently. Denies vaginal symptoms such as bleeding or discharge. Related Data Home Medications ?Medication ?Instructions ?Recorded ?Confirmed ondansetron 4 mg disintegrating 4 mg PO Q6H PRN nausea and 03/14/22 tablet vomiting #10 tabs ondansetron 4 mg disintegrating 4 mg PO Q8H PRN #10 ta bs 09/14/24 tablet polyethylene glycol 3350 17 17 g PO DAILY #119 grams 0 09/14/24 gram/dose oral powder (Miralax) sennosides 8.6 mg capsule (senna) 8.6 mg PO DAILY #30 caps 09/14/24 Previous Rx's ?Medication ?Instructions ?Recorded ondansetron 4 mg disintegrating 4 mg PO Q6H PRN nausea and 03/14/22 tablet vomiting #10 tabs ondansetron 4 mg disintegrating 4 mg PO Q8H PRN #10 ta bs 09/14/24 tablet polyethylene glycol 3350 17 17 g PO DAILY #119 grams 0 09/14/24 gram/dose oral powder (Miralax) sennosides 8.6 mg capsule (senna) 8.6 mg PO DAILY #30 caps 09/14/24 Allergies Allergy/AdvReac Type Severity Reaction Status Date / Time banana Allergy Hives Verified 10/18/23 11:38 General Stated Complaint: Abd Prob RANDEE: 3 Exam Narrative Exam Narrative: Gen: Awake and alert, in no apparent distress HEENT: Non-icteric sclera Neck: Supple Lungs: No apparent respiratory distress, normal respiratory effort. CV: Appears well perfused, strong distal pulses Abdomen: Non-distended, soft, tender to palpation epigastric region, no rebound or rigidity MSK: Moves 4 extremities without apparent limitation in ROM Skin: Visualized skin without rashes, cyanosis. Neuro: Normal Gait, no obvious focal deficits or facial asymmetry. Speaks in full, clear sentences. Psych: Appropriate for situation. Course Vital Signs Vital signs: Vital Signs Pulse 84 09/14/24 09:09 Respiratory Rate 18 09/14/24 09:09 Blood Pressure 130/77 09/14/24 09:09 Pulse 84 09/14/24 09:09 Respiratory Rate 18 09/14/24 09:09 Blood Pressure 130/77 09/14/24 09:09 Pain Level 7 09/14/24 09:22 Medical Decision Making This is a 29-year-old female patient presenting for evaluation of abdominal pain, nausea with vomiting and constipation. My differential includes, but is not limited to, gastritis/PUD, gastroenteritis, pancreatitis, cholecystitis and gallbladder pathology, hepatitis, appendicitis, diverticulitis, small bowel obstruction. Considered urinary pathology including UTI, nephrolithiasis. Considered mesenteric ischemia, aortic pathology, though this is less concerning based on the patient's history and physical exam. Considered ectopic , PID/TOA, ovarian cyst, ovarian torsion. Considered cyclical vomiting and hyperemesis especially in the setting of her daily marijuana use. Considered metabolic and electrolyte derangements, dehydration, anemia. We will obtain laboratory studies to include CBC, CMP, magnesium, lipase, urinalysis and urine test. Given the report of no bowel movements for 1 month, I will proceed with CT scan to evaluate for small bowel obstruction, though I am reassured by the patient's overall benign abdominal presentation. I will provide her with a liter of IV fluids, Zofran, and Tylenol for initial management of symptoms. - independently interpreted the laboratory studies, which show no significant le ukocytosis, anemia, or thrombocytopenia. The chemistry panel is without evidence of electrolyte abnormality, kidney dysfunction, or liver injury. Lipase is low, urine negative, urinalysis is unfortunately contaminated with many epithelial cells, but in the absence of urinary tract symptoms I have a lower concern for acute infection. I reviewed the patient's CT of her abdomen and pelvis, as well as the radiology report. They note significant constipation as well as some fluid-filled bowel loops concerning for enteritis, and the patient has what appears to be a recently ruptured ovarian cyst. She has no evidence of bowel obstruction or other acute abnormalities. On reassessment the patient reports that she has had significant improvement in her symptoms after the above-noted Tylenol and Zofran. She was able to tolerate oral intake without nausea or vomiting. I counseled her on a bowel regimen and provided her with a prescription for MiraLAX and senna, and provided her with a referral to establish with a primary care provider. I also refilled her Zofran to allow her to maintain her hydration in the out patient environment. At this time, the patient has had a full medical evaluation and is safe for discharge to home. They are hemodynamically stable, ambulatory, and tolerating PO. They are understanding of the follow-up plan and return precautions. They left our facility without incident. Va Nair MD [facility] All Active Problems (Updated 09/14/24 @ 11:54 by Va Nair MD) Ovarian cyst rupture (Acute) Constipation (Acute) Nausea & vomiting (Acute) Abdominal pain (Acute) Term delivered (Acute) Anemia (Chronic) GERD (gastroesophageal reflux disease) (Chronic) Marijuana use (Acute) Depression (Chronic 11/24/11) chronic depressed mood Anxiety (Acute 03/28/12) Medical History Uterine contractions COVID-19 affecting in second trimester Vaginal discharge during Abscess, dental Previous recurrent miscarriages affecting , antepartum Idiopathic scoliosis (10/27/11) Tobacco abuse Heart murmur (10/27/11) innocent Asthma outgrown Recurrent acute otitis media outgrown Genitourinary Chlamydia infection 12/14,02/13 and 05/15 BV (bacterial vaginosis) 04/07/15. Rx with Metronidazole. 06/30/15 Rx with PO Metronidazole Surgical History Status post dilation and curettage 08/15/18; Missed AB at ~8 weeks Dilation and curettage (06/19/13) for embryonic demise at 12w EGA. Family History Mother Anxiety Depression Hypertension Father Anxiety Depression Hypertension Grandmother Mental disorder anxiety/depression Diabetes Sister Asthma COPD (chronic obstructive pulmonary disease) Maternal Aunt Cancer lung and mouth / oral cancer passed age 32 Paternal Uncle Colon cancer Maternal Grandfather Heart disease Stroke Other Idiopathic scoliosis Social History Smoking/Tobacco Use Status: Current every day Tobacco Type: cigarettes Smoking risk assessment performed?: Yes Alcohol Intake: former Drug use: Never Substance use type: marijuana and prescription drug Details: 5-6 cigarettes per day Adopted: No Caregiver/Support person: No Foster care: No Do you need help understanding health information?: Often current occupation: [employer], [employer] and [employer] Sexually active: Yes Do you think of yourself as: straight/heterosexual Current gender identity: female Do you feel safe at home: Yes Do you feel safe in your relationship?: Yes Female Reproductive History Menstrual control method: none History History 4 Para 2 Hx # Term Pregnancies 2 Multiple births 0 Hx # Pregnancies 0 Ectopic pregnancies 0 AB induced 0 Hx Number of Living Children 2 AB spontaneous 2 Past Pregnancies Del. Date GA/Weeks # Preg Succ Route Wgt Sex Labor Lgth Anesth esia Location [facility] 06/19/[address] Shannan norton 08/15/18 8 Jd Coles 05/29/[address] Ochoa 12/10/20 39 No vaginal 3324.832 g Female 23 hrs 45 min any Rainey CNM 01/16/22 38 No Yes vaginal 3155.018 g Male 3 hrs 27min ESTELLE Rainey Delivery Date: 06/19/13 Last Updated by: Mirella Kasper M.D. MAB ~12wks; D&C Delivery Date: 08/15/18 Last Updated by: Mirella Kasper M.D. MAB at ~ 8 weeks; D&C Delivery Date: 05/29/19 Last Updated by: Mirella Kasper M.D. MAB at 10.2 weeks; D&C Delivery Date: 12/10/20 Last Updated by: MILLY Ruff Delivery Date: 01/16/22 Last Updated by: MILLY Ruff; Dark Meconium stain
[2024-09-14] MEDS: Lactated Ringers 1,000 ML 1000 ML IV (09:46)
[2024-09-14] MEDS: Ondansetron 4 MG/2 ML VIAL IVP (09:46)
[2024-09-14] MEDS: ACETAMINOPHEN 1,000 MG/100 ML BAG 400 MG IVPB (09:46)
[2024-09-14 09:50] LABS: Abs Immature Grans 0.01 10^3/uL (0.0-0.06); HCT 43.1 % (36.0-46.0); HGB 14.3 g/dL (11.2-15.7); Immature Grans % 0.2 %; MCH 28.4 pg (27.0-33.0); MCHC 33.2 % (32.0-36.0); MCV 86 fL (80-95); MPV 9.9 fL (8.0-11.0); Platelet Count 257 10^3/uL (130-400); RBC 5.04 10^6/uL (3.93-5.22); RDW 12.9 % (11.7-14.6); RDW-SD 40.1 fL; WBC 4.85 10^3/uL (4.4-10.8)
[2024-09-14 10:09] LABS: ALT 39 U/L (14-59); AST 24 U/L (15-37); Albumin 4.1 g/dL (3.4-5.0); Alkaline Phosphatase 124 U/L (46-116); Anion Gap 11.2 mmol/L (3-11); BUN 7 mg/dL (7-18); Bilirubin, Total 0.4 mg/dL (0.2-1.0); CO2 25.8 mmol/L (21.0-32.0); Calcium 9.2 mg/dL (8.5-10.1); Chloride 101 mmol/L (98-107); Estimated GFR 119.24 (mL/min/1.73m2); Glucose 128 mg/dL (74-106); Lipase 20 U/L (<78); Magnesium 1.9 mg/dL (1.8-2.4); Potassium 3.6 mmol/L (3.5-5.1); Sodium 138 mmol/L (136-145); Total Protein 8.1 g/dL (6.4-8.2)
[2024-09-14 10:57] LABS: Glucose Negative (Negative)
[2024-09-14] MEDS: Omnipaque 350 MG/ML 100 ML BTL IJ (10:58)
[2024-09-14] MEDS: Normal Saline - Diluent 50 ML VIAL IJ (10:59)
[2024-09-14 11:04] LABS: C & S Indicated? No; RBC 0-2 HPF (0-2)
[2024-09-14 11:19] VITALS: PULSE 66; PULSE 72; RESP 10; O2SAT 99
--- NOTE | 2024-09-14 11:28 | DI.VRAD_ITS ---
PROCEDURE INFORMATION: Exam: CT Abdomen And Pelvis With Contrast Exam date and time: 09/14/2024 10:55 AM Age: 29 years old Clinical indication: Other: Epigastric pain, constipation, blood streaked TECHNIQUE: Imaging protocol: Computed tomography of the abdomen and pelvis with contrast. Radiation optimization: All CT scans at this facility use at least one of these dose optimization techniques: automated exposure control; mA and/or kV adjustment per patient size (includes targeted exams where dose is matched to clinical indication); or iterative reconstruction. Contrast material: OMNIPAQUE 350; Contrast volume: 70 ml; Contrast route: INTRAVENOUS (IV); COMPARISON: US OB SURJIT WEIGHT 12/20/2021 10:10 AM FINDINGS: Lungs: Unremarkable. Lung bases are clear. Liver: The liver is diffusely low in attenuation, compatible with fatty infiltration. Gallbladder and biliary ducts: Unremarkable. No calcified stones. No ductal dilation. Pancreas: Unremarkable. No ductal dilation. Spleen: Unremarkable. No splenomegaly. Adrenal glands: Normal. No mass. Kidneys and ureters: Unremarkable. No hydronephrosis. Stomach and bowel: Large amount of stool in the colon. Mildly dilated fluid-filled loops of small bowel with mildly thickened wall Appendix: No evidence of appendicitis. Intraperitoneal space: Scant free fluid in the pelvis Vasculature: Unremarkable. No abdominal aortic aneurysm. Lymph nodes: Unremarkable. No enlarged lymph nodes. Urinary bladder: Unremarkable as visualized. Reproductive: Collapsed right ovarian cyst, probably recently ruptured Bones/joints: See Soft tissues finding. Soft tissues: Inflammatory change about the insertion of the abdominis rectus musculature on the pubic symphysis, possible osteitis pubis , age indeterminate IMPRESSION: 1. Constipation 2. Possible enteritis 3. Probably recently ruptured right ovarian cyst Dictated and Authenticated by: Juli Hurley MD. Orderin [facility] De [facility] MD
== END 2024-09-14 12:08 | disposition home or self-care (01) ==
PROVIDERS: Emergency Provider Emergency Medicine; PCP Nurse Practitioner
DX: R10.13 Epigastric pain (principal); R11.2 Nausea with vomiting, unspecified; K59.00 Constipation, unspecified; N83.01 Follicular cyst of right ovary; F11.20 Opioid dependence, uncomplicated
CPT/HCPCS: 36415; 80053; 81025; 83690; 96361; 96365; 96375; 99285; 74177; 81003; 81015; 83735; 85025; J0131; J2405; J3490

== ENCOUNTER 2025-01-17 11:50 | Emergency (ER) | payer MEDICAID, SELFPAY ==
--- NOTE | 2025-01-17 11:45 | DI.RAD_ITS ---
Exam(s) XR FOOT LT COMPLETE EXAM: XR FOOT LT COMPLETE CLINICAL HISTORY: crush injury. TECHNIQUE: 2D digital imaging was performed. COMPARISON: No exams were available for comparison FINDINGS: 3 views There is a mildly displaced transverse fracture at tuft of the distal phalanx of the 4th toe. No other fractures identified in the foot. Lisfranc joint appears intact as do the other tarsometatarsal joints. Great toe metatarsophalangeal joint appears unremarkable. No pes planus. Bone density normal. No osseous lesions. No radiopaque foreign bodies. IMPRESSION: Transverse fracture in the distal phalanx of the 4th toe with mild displacement. No radiopaque foreign bodies. DATA REPOSITORY: RADIATION DOSE DELIVERED:
[2025-01-17 11:52] VITALS: BP 103/73; PULSE 73; RESP 16; TEMP 36.3; O2SAT 98
--- NOTE | 2025-01-17 12:55 | ED.GENADUL_ITS ---
Discharge Plan Disposition Patient Disposition: Home Condition: Stable Discharge Details Clinical Impression: Contusion of foot, left, Fracture of toe Primary Care Provider: Nidia Howard ED Provider: Steve Kirkpatrick Home Meds and New Rx's Prescriptions: Continued ondansetron 4 mg tablet,disintegrating 4 mg PO Q6H PRN (Reason: nausea and vomiting) Qty: 10 0RF polyethylene glycol 3350 [Miralax] 17 gram/dose powder 17 g PO DAILY Qty: 119 0RF senna 8.6 mg capsule 8.6 mg PO DAILY Qty: 30 0RF ondansetron 4 mg tablet,disintegrating 4 mg PO Q8H PRNQty: 10 0RF Discharge Instructions Additional Instructions: X-ray reveals a toe fracture. Rest, elevate, cool compresses every 2 hours for 20 minutes. [id number] Tylenol and/or Motrin as directed for discomfort. Please watch for new or worsening symptoms and return to the ER for any concerns. Please wear the short walking boot for comfort as tolerated, you may advance to torsten taping and personal footwear as tolerated. Referral to our podiatry team has been given. Please contact their office later today or on Monday morning to arrange outpatient follow-up. Stand Alone Forms: Portal Information Referrals: Romelia Santiago DPM [[facility] STAFF PHYSICIAN, Podiatry] [facility] General Mode of arrival: ambulatory . Date/Time Provider Initiated Documentation: 01/17/25 11:56 . Limitations to Documentation: no limitations . Information obtained by: patient . History of Present Illness 29 year old F presents to the emergency department with the chief complaint of Foot pain, described as severe, with intensity rated at 7. Quality is described as aching and crushing, and is localized to the left and lower extremity. Patient reports no radiation. Patient started experiencing this day(s) (2) and it has been constant. Immobilization improves symptom(s), Movement worsens symptoms . Patient notes no other symptoms.. Patient did receive the following treatments prior to arrival, NSAID Related Data Home Medications Medication Instructions Recorded Confirmed ondansetron 4 mg disintegrating 4 mg PO Q6H PRN nausea and 03/14/22 01/17/25 tablet vomiting #10 tabs ondansetron 4 mg disintegrating 4 mg PO Q8H PRN #10 ta bs 09/14/24 01/17/25 tablet polyethylene glycol 3350 17 17 g PO DAILY #119 grams 0 09/14/24 01/17/25 gram/dose oral powder (Miralax) sennosides 8.6 mg capsule (senna) 8.6 mg PO DAILY #30 caps 09/14/24 01/17/25 Previous Rx's Medication Instructions Recorded ondansetron 4 mg disintegrating 4 mg PO Q6H PRN nausea and 03/14/22 tablet vomiting #10 tabs ondansetron 4 mg disintegrating 4 mg PO Q8H PRN #10 ta 09/14/24 tablet polyethylene glycol 3350 17 17 g PO DAILY #119 grams 0 09/14/24 gram/dose oral powder (Miralax) sennosides 8.6 mg capsule (senna) 8.6 mg PO DAILY #30 caps 09/14/24 Allergies Allergy/AdvReac Type Severity Reaction Status Date / Time banana Allergy Hives Verified 01/17/25 11:55 General Stated Complaint: Orthopedic RANDEE: 4 Review of Systems Constitutional Constitutional: Denies weakness Musculoskeletal Musculoskeletal: Denies numbness and Denies tingling Integumentary/Breasts Skin/Breast: Denies rash Neurologic Neurologic: Denies numbness, Denies tingling and Denies weakness Exam Const General: cooperative, healthy appearing, comfortable and no acute distress Orientation: alert and awake [facility] Head: normal to inspection, normocephalic and atraumatic Mouth: moist mucous membranes Eyes Conjunctivae: conjunctivae normal Neck Neck: normal visual inspection, trachea midline and supple Resp Effort & Inspection: normal respiratory effort and able to speak in complete sentences Cardio Rate: regular rate Rhythm: regular rhythm Skin General skin exam: no rashes or lesions noted Neuro General: patient alert, patient awake, moves all extremities and no focal motor deficits Sensory Exam: no sensory deficits noted Extrem General: full ROM, capillary refill normal and limp Ankle/foot/toe images: 2 1. Ecchymosis, swelling, tenderness. Neuro, vascular, tendon intact. Demonstrates good dorsi and plantarflexion. Wiggles all toes. Normal pedal pulse and capillary refill. Psych Appearance: grossly normal Mental Status: mental status grossly normal Course Vital Signs Vital signs: Vital Signs Temperature 36.3 C L 01/17/25 11:52 Pulse 73 01/17/25 11:52 Respiratory Rate 16 01/17/25 11:52 Blood Pressure 103/73 01/17/25 11:52 Pulse Oximetry 98 01/17/25 11:52 Temperature 36.3 C L 01/17/25 11:52 Temperature Source Oral 01/17/25 11:52 Pulse 73 01/17/25 11:52 Respiratory Rate 16 01/17/25 11:52 Blood Pressure 103/73 01/17/25 11:52 Pulse Oximetry 98 01/17/25 11:52 Medical Decision Making 29-year-old female who dropped a gallon of apple juice onto her foot without any footwear 2 days ago. Has been taking Tylenol and Motrin. Symptoms really not improving. Hoping for a brace or boot for discomfort. Clinically she appears well, nontoxic. Obvious foot contusion with increased discomfort over the fourth toe, concerning for fracture. Neuro, vascular, tendon intact. Will obtain x-ray and reassess X-ray of the right foot initially read by me but later read by radiology as a transverse fracture in the distal phalanx of the fourth toe with mild displacement. Discussed x-ray findings with patient. Placed into a short walking boot. Discussed may weight-bear as tolerated, can advance out of the boot into her normal footwear with torsten taping as tolerated. Placed onto the podiatry follow-up referral list. Encouraged elevation, resting, [id number] Tylenol and/or Motrin as directed. Encouraged to watch for new or worsening symptoms and return immediately to the ER. Standard discharge and return precautions were provided. Patient understands, is agreeable to this plan, and has no additional questions or concerns upon discharge. This documentation was generated using [employer] system, please disregard any oddities of phrase or misspellings. Medical Records Medical records reviewed: Yes I reviewed the patient's medical records. PFSH All Active Problems Fracture of toe (Acute) Contusion of foot, left (Acute) Term delivered (Acute) Anemia (Chronic) GERD (gastroesophageal reflux disease) (Chronic) Marijuana use (Acute) Depression (Chronic 11/24/11) chronic depressed mood Anxiety (Acute 03/28/12) Medical History Uterine contractions COVID-19 affecting in second trimester Vaginal discharge during Abscess, dental Previous recurrent miscarriages affecting , antepartum Idiopathic scoliosis (10/27/11) Tobacco abuse Heart murmur (10/27/11) innocent Asthma outgrown Recurrent acute otitis media outgrown Genitourinary Chlamydia infection 12/14,02/13 and 05/15 BV (bacterial vaginosis) 04/07/15. Rx with Metronidazole. 06/30/15 Rx with PO Metronidazole Surgical History Status post dilation and curettage 08/15/18; Missed AB at ~8 weeks Dilation and curettage (06/19/13) for embryonic demise at 12w EGA. Family History Mother Anxiety Depression Hypertension Father Anxiety Depression Hypertension Grandmother Mental disorder anxiety/depression Diabetes Sister Asthma COPD (chronic obstructive pulmonary disease) Maternal Aunt Cancer lung and mouth / oral cancer passed age 32 Paternal Uncle Colon cancer Maternal Grandfather Heart disease Stroke Other Idiopathic scoliosis Social History Smoking/Tobacco Use Status: Current every day Tobacco Type: cigarettes Smoking risk assessment performed?: Yes Alcohol Intake: former Drug use: Occasionally Substance use type: marijuana Details: 5-6 cigarettes per day Adopted: No Caregiver/Support person: No Foster care: No Do you need help understanding health information?: Often 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 Sexually active: Yes Do you think of yourself as: straight/heterosexual Current gender identity: female Do you feel safe at home: Yes Do you feel safe in your relationship?: Yes Female Reproductive History Menstrual control method: none History History 2 4 Para 2 Hx # Term Pregnancies 2 Multiple births 0 Hx # Pregnancies 0 Ectopic pregnancies 0 AB induced 0 Hx Number of Living Children 2 AB spontaneous 2 Past Pregnancies Del. Date GA/Weeks # Preg Succ Route Wgt Sex Labor Lgth Anesth esia Location [facility] 06/19/[address] Shannan norton 08/15/18 8 Jd Coles 05/29/[address] Ochoa 12/10/20 39 No vaginal 3324.832 g Female 23 hrs 45 min regiona l ESTELLE Rainey 01/16/22 38 No Yes vaginal 3155.018 g Male 3 hrs 27min ESTELLE Rainey Delivery Date: 06/19/13 Last Updated by: Mirella Kasper M.D. MAB ~12wks; D&C Delivery Date: 08/15/18 Last Updated by: Mirella Kasper M.D. MAB at ~ 8 weeks; D&C Delivery Date: 05/29/19 Last Updated by: Mirella Kasper M.D. MAB at 10.2 weeks; D&C Delivery Date: 12/10/20 Last Updated by: MILLY Ruff Delivery Date: 01/16/22 Last Updated by: MILLY Ruff; Dark Meconium stain
== END 2025-01-17 13:21 | disposition home or self-care (01) ==
PROVIDERS: Emergency Provider Physician Assistant; PCP Nurse Practitioner
DX: S90.32XA Contusion of left foot, initial encounter (principal); S92.531A Displaced fracture of distal phalanx of right lesser toe(s), initial encounter for closed fracture; X58.XXXA Exposure to other specified factors, initial encounter
CPT/HCPCS: 99283 ×2; 73630